=== PATIENT | male | born 1960 | race Caucasian/White ===

== ENCOUNTER 2016-06-28 10:55 | Inpatient (IN) ==
[2016-06-28] MEDS ORDERED: Piperacillin/Tazobactam 3.375 GM in D5% in Water (Mini-Bag+) 100 ML IVPB ONE (11:31)
[2016-06-28] MEDS ORDERED: Vancomycin 2,000 MG in D5% in Water 250 ML IVPB ONE (11:31)
[2016-06-28] MEDS ORDERED: 0.9 % Sodium Chloride 1,000 ML IVC ONE ×2 (11:31→15:10)
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
[2016-06-28] MEDS ORDERED: Vancomycin 2,000 MG in D5% in Water 500 ML IVPB ONE (11:44)
[2016-06-28 12:17] LABS: Hematocrit 28.6 % (37.5-50.1); Red Blood Count 3.01 M/mcL (4.19-5.50)
[2016-06-28 12:18] LABS: Hemoglobin 9.5 g/dL (12.9-16.9); Mean Corpuscular HGB Conc 33.2 g/dL (31.6-35.5); Mean Corpuscular Hemoglobin 31.6 pg (28.0-33.3); Mean Platelet Volume 9.2 fL (9.4-12.4); Platelet Count 356 K/mcL (140-400); Red Cell Distribution Width 13.2 % (11.5-14.5)
[2016-06-28 12:32] LABS: INR 1.4; Prothrombin Time 15.5 Seconds (9.4-12.1)
[2016-06-28 12:34] LABS: Activated Partial Thrombo Time 31.3 Seconds (26.0-36.0)
[2016-06-28 12:39] LABS: Albumin/Globulin Ratio 0.3 (1.1-2.2); Bilirubin,Direct 0.2 mg/dL (0.0-0.5); Bilirubin,Indirect 0.2 mg/dL (0.0-1.2); Bilirubin,Total 0.4 mg/dL (0.2-1.2); Calcium 9.3 mg/dL (8.6-10.8); Magnesium 1.1 mg/dL (1.6-2.6); Potassium 3.1 mEq/L (3.5-4.5); Total Protein 7.9 g/dL (6.0-8.3)
[2016-06-28 12:41] LABS: Lymphocytes # 2.1 K/mcL (0.6-4.6); Monocytes # 0.5 K/mcL (0.0-1.3); Neutrophils # 23.4 K/mcL (1.6-8.9); Platelet Estimate Normal (Normal)
[2016-06-28 12:43] LABS: Albumin 1.9 g/dL (3.5-5.0); Phosphorous 0.9 mg/dL (2.3-4.7)
[2016-06-28] MEDS ORDERED: 0.9 % Sodium Chloride 2,000 ML IVC ONE (12:51)
[2016-06-28] MEDS ORDERED: *HR* HYDROmorphone (PF) 1 MG/ML SYRINGE IV ONE ×2 (13:19→15:49)
[2016-06-28] MEDS ORDERED: Ondansetron 4 MG/2 ML VIAL IV ONE (13:19)
[2016-06-28] MEDS ORDERED: Potassium Phosphate 44 MEQ in 0.9 % Sodium Chloride 250 ML IVPB ONE (16:00)
[2016-06-28] MEDS ORDERED: Ondansetron 4 MG/2 ML VIAL IVP ONE (16:25)
[2016-06-28] MEDS ORDERED: Naloxone 0.4 MG/ML INJ IVP PRN (16:55)
[2016-06-28] MEDS ORDERED: *HR* HYDROmorphone (PF) 1 MG/ML SYRINGE IVP PRN (16:55)
[2016-06-28] MEDS ORDERED: Ondansetron 4 MG/2 ML VIAL IVP PRN (16:55)
[2016-06-28] MEDS ORDERED: *HR* HYDROcodone/Acet 5/325 mg TABLET PO PRN (16:55)
[2016-06-28] MEDS ORDERED: 0.9 % Sodium Chloride 1,000 ML IVC SCH (17:00)
[2016-06-28] MEDS ORDERED: D5% in Water 1,000 ML IV PRN (17:07)
[2016-06-28] MEDS ORDERED: Dextrose Gel 15 GM PO PRN ×2 (17:07)
--- NOTE | 2016-06-28 17:32 | Internal Med History&Physical ---
<Stella Paez M - Last Filed: 06/28/16 18:28> Date of Encounter: 06/28/16 Time of Encounter: 17:27 Assessment and Plan (1) Sepsis Current visit: Yes Status: Acute Patient presented with new left foot ulcer, surrounding erythema and tenderness , fever, chills, nausea and vomiting. Tachycardic with HR 120s, WBC elevated to 26.0, low-grade fever of 100.9 WBC 26.0, lactate 3.6. Blood cultures drawn 4L 0.9NS Fluid bolus given (30mL x 136kg= 4080) Repeat lactate = 1.5 Broad spectrum antibiotics initiated with Vanc and Zosyn IVPB Will continue IV fluids with 0.9NS at 100mL/hr Will continue Vanc and zosyn as we await cultures. Qualifiers: Sepsis type: sepsis due to unspecified organism Qualified Code(s): A41.9 - Sepsis, unspecified organism (2) Foot ulcer due to secondary DM Current visit: No Status: Acute Patient with new foot ulcer of left foot, surrounding erythema and tenderness spreading up to mid calf. Patient with fevers, chills, nausea and vomiting as well. Blood cultures drawn 4L fluid bolus Broad spectrum antibiotics initiated with Vanc and Zosyn. Will continue Vanc and zosyn as we await culture results Xray of left foot showed lateral soft tissue ulcer, but no osseous involvement MRI of left foot ordered to further assess for osteomyelitis ESR ordered Podiatry consulted. NPO after midnight for possible debridement or bone biopsy. (3) Cellulitis of leg, left Current visit: Yes Status: Acute Patient with new foot ulcer of left foot, surrounding erythema and tenderness spreading up to mid calf. Patient with fevers, chills, nausea and vomiting as well. Blood cultures drawn 4L fluid bolus Broad spectrum antibiotics initiated with Vanc and Zosyn. Will continue Vanc and zosyn as we await culture results Xray of left foot showed lateral soft tissue ulcer, but no osseous involvement MRI of left foot ordered to further assess for osteomyelitis ESR ordered Podiatry consulted. (4) Type 2 diabetes mellitus Current visit: Yes Status: Acute Diabetic diet. check blood glucose ACHS Basal insulin dose of 65u detemir BID Will give half dose tonight as he will be NPO after midnight for potential procedure. 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 Baseline appears to be 0.8-1.5, though he has been as high as 2.78 in the last 3 months, and had a previous episode of JOCELINE in 2014 with Cr as high as 6.0. 4L fluid bolus given for sepsis protocol. Continuous IV fluids of 0.9NS at 100mL/hr recheck Chemistry at midnight and in morning. (6) Hypokalemia Current visit: Yes Status: Acute Patient with potassium of 3.1. 44mEq of KPhos ordered recheck chemistry at midnight. (7) Hypomagnesemia Current visit: Yes Status: Acute Magnesium of 1.1 2g of magnesium sulfate IVPB given recheck Magnesium at midnight. (8) Hypophosphatemia Current visit: Yes Status: Acute Phosphorus of 0.9. 44mEq of Kphos IVPB ordered recheck phos at midnight (9) DVT prophylaxis Current visit: No Status: Acute Up to chair BID Calf compressors 5,000u heparin SQ BID Internal Medicine - H&P: HPI Chief complaint: foot ulcer Admitted From: Emergency Dept Plans for Post Hospital Care: Home History of present illness: Mr. Santacruz is a 55 year old male with history of type 2 diabetes, hypertension, hyperlipidemia, congestive heart failure, and chronic kidney disease as well as chronic foot ulcers presented to the emergency department today after discovering a new foot ulcer developed in the last couple of days with increasing pain to his left foot and increasing redness. He reports the ulcer on his left foot opened up within the last 2 days. He noted purulent drainage, as well as increased pain and redness. He also had fever to 102 degrees yesterday, chills, nausea, vomiting he denies any chest pain, palpitations denies any abdominal pain or diarrhea. Evaluation in the emergency department was significant for elevated white count of 26.0, lactate of 3.6, electrolyte imbalances with potassium 3.1, magnesium of 1.1 and phosphorus of 0.9. He was tachycardic to 120s, had low-grade fever of 100.1, and blood pressure of 150/ 84. Podiatry was consulted, blood cultures were taken, he was given 4 L of fluid bolus, and initiated on broad-spectrum antibiotics. He was given 2g of magnesium sulfate and 44 mEq of potassium phosphorus was ordered as well. X- ray of the foot showed lateral soft tissue ulcer with no evidence of osseous involvement. On exam patient had an ulcer on his lateral left foot that was approximately 4 cm in diameter and 3 cm deep with a large amount of purulent drainage surrounding erythema erythema spreading up the leg to mid calf. Patient's left foot and lower leg were tender to palpation. His left lower extremity was edematous, and he reports this is more than usual. He is tachycardic with HR 120s, lungs are clear to auscultation. Past Med Surg Social Fam HX - Past Medical History Medical history: CHF, diabetes, hyperlipidemia, hypertension, renal disease Psychiatric history: depression - Past Surgical History Surgical History: orthopedic, other (bilateral big toe amputations), other ( multiple wound debridements on bilateral feet) - Social History Smoking Status: Never smoker Smokeless Tobacco Status: No Alcohol use: none Drug use: marijuana (occasional) - Family History Father Family Member Ethnicity: Non- Living Status: Still Living Hx Family Cardiac Disorders: Yes Hx Family Endocrine Disorder: Yes (diabetis) Internal Medicine - H&P: Meds Gabapentin [Neurontin] 800 mg PO TID 12/20/15 [History] Insulin ASPART [Novolog] 2 - 12 unit SQ QID 12/20/15 [History] Insulin DETEMIR [Levemir] 65 unit SQ BID 12/20/15 [History] Metoprolol [Lopressor] 100 mg PO BID 12/20/15 [History] Magnesium Oxide [Mag-Ox] 400 mg PO BID 30 Days 12/23/15 [Rx] Aspirin Enteric Coated [Aspirin EC] 81 mg PO DAILY 01/21/16 [History] Atorvastatin Calcium [Lipitor] 20 mg PO DAILY 01/21/16 [History] Clopidogrel [Plavix] 75 mg PO DAILY 30 Days 01/30/16 [Rx] Ferrous Sulfate 325 mg PO BIDWM 30 Days 01/30/16 [Rx] Folic Acid 1 mg PO DAILY 30 Days 01/30/16 [Rx] CloNIDine HCl 0.1 mg PO TID 04/12/16 [History] Omeprazole [PriLOSEC] 40 mg PO DAILY 04/12/16 [History] Citalopram Hydrobromide [Citalopram HBr] 40 mg PO DAILY 30 Days 04/20/16 [Rx] Amino Acids/Protein Hydrolys [Pro-Stat Awc Liquid] 30 ml PO BID 05/07/16 [ History] Cyclobenzaprine [Flexeril] 10 mg PO TID PRN 05/07/16 [History] Multivitamin [Multi-Day Vitamins] 1 each PO DAILY 05/07/16 [History] Oxycodone HCl/Acetaminophen [Percocet 10-325 mg Tablet] 1 each PO Q6H PRN #20 tablet 05/10/16 [Rx] Furosemide [Lasix] 40 mg PO DAILY 06/28/16 [History] Morphine Sulfate 15 mg PO QID PRN 06/28/16 [History] Allergies No Known Allergies Allergy (Verified 06/28/16 14:37) All Systems PM: A 10-system review of systems was performed and is negative for pertinent findings except as documented above in the HPI. - Constitutional Constitutional: chills, fever(s), malaise, no night sweats - Cardiovascular Cardiovascular ROS IM: no chest pain, no diaphoresis, no dyspnea, no lightheadedness, no palpitations, no syncope - Respiratory Respiratory: no cough, no dyspnea, no wheezing, no excessive phlegm production - Gastrointestinal Gastrointestinal: nausea, vomiting, no abdominal pain, no diarrhea, no hematemesis, no hematochezia, no melena - Genitourinary Genitourinary ROS male: no dysuria, no hematuria - Musculoskeletal Additional comments: chronic numbness and tingling in bilateral feet. Patient reports no more than usual. - Integumentary Integumentary IM: new lesions, non-healing lesions Additional comments: Healing ulcer on plantar aspect of left foot. New lateral dorsal ulcer on left foot - Neurological Neurological ROS: no confusion, no convulsions, no focal weakness, no tremor(s) - Hematologic/Lymphatic Hematologic/Lymphatic: no easy bruising - Constitutional Vitals: Temp Pulse Resp BP Pulse Ox 100.1 F H 107 17 142/91 97 06/28/16 11:05 06/28/16 15:30 06/28/16 15:30 06/28/16 15:30 06/28/16 15:30 General appearance: Present: A&O X 3, no acute distress - Head Head exam: Present: atraumatic, normocephalic - Eye Eye exam: Present: PERRL, conjuntiva pink, sclera anicteric Pupils: Present: PERRL - Neck Neck exam general surgery: Present: supple, trachea midline. Absent: lymphadenopathy - Respiratory Respiratory exam: Present: CTAB. Absent: accessory muscle use, rales, rhonchi, wheezes - Cardiovascular Cardiovascular exam: Present: +S1, +S2, tachycardia. Absent: diastolic murmur, gallop, rubs, systolic murmur - GI/Abdominal GI/Abdominal exam: Present: normal bowel sounds, soft, no peritoneal signs. Absent: distended, tenderness - Extremities Exam Extremities exam: Present: pedal edema, tenderness, warm, radial pulses palpable and symetrical. Absent: calf tenderness, cyanotic - Expanded Lower Extremities Exam Lower Leg exam: Present: erythema (left), swelling (left), tenderness (left) Foot/Toe exam: Present: amputation (bilateral big toes), erythema, swelling, tenderness - Neurological Exam Neurological exam: Present: CN II-XII intact, oriented X3, no focal deficits. Absent: pronater drift, facial droop, speech deficit - Skin Skin exam: Present: dry. Absent: rash Additional comments: Lateral dorsal left foot ulcer measuring approximately 4cm in diameter and 3 cm deep with moderate amount of purulent drainage surrounded by erythema. Healing ulcer on plantar aspect of left foot, closed and intact. Internal Med - H&P Results - Labs CBC & Chem 7: 06/28/16 12:08 06/28/16 12:08 Labs: All Lab Results (24 Hours) 06/28/16 06/28/16 06/28/16 Range/Units 12:08 12:08 12:08 WBC 26.0 H (4.3-11.1) K/mcL RBC 3.01 L (4.19-5.50) M/mcL Hgb 9.5 L (12.9-16.9) g/dL Hct 28.6 L (37.5-50.1) % MCV 95.0 (83.0-100.0) fL MCH 31.6 (28.0-33.3) pg MCHC 33.2 (31.6-35.5) g/dL RDW 13.2 (11.5-14.5) % Plt Count 356 (140-400) K/mcL MPV 9.2 L (9.4-12.4) fL Seg Neutrophils % 86.0 % Band Neutrophils % 4.0 (0-4) % Lymphocytes % 8.0 % Monocytes % 2.0 % Neutrophils # 23.4 H (1.6-8.9) K/mcL Lymphocytes # 2.1 (0.6-4.6) K/mcL Monocytes # 0.5 (0.0-1.3) K/mcL Platelet Estimate Normal (Normal) PT 15.5 H (9.4-12.1) Seconds INR 1.4 APTT 31.3 (26.0-36.0) Seconds Sodium 133 L (136-145) mEq/L Potassium 3.1 L (3.5-4.5) mEq/L Chloride 95 L (98-109) mEq/L Carbon Dioxide 26 (19-29) mEq/L BUN 29 H (8-26) mg/dL Creatinine 1.82 H (0.72-1.25) mg/dL Est GFR ( Amer) 47 L (> 60) Est GFR (Non-Af Amer) 39 L (> 60) BUN/Creatinine Ratio 16 (6-26) Glucose 140 H (70-99) mg/dL Calculated Osmolality 284 (280-300) Lactic Acid (0.5-2.2) mmol/L Calcium 9.3 (8.6-10.8) mg/dL Phosphorus 0.9 L* (2.3-4.7) mg/dL Magnesium 1.1 L (1.6-2.6) mg/dL Total Bilirubin 0.4 (0.2-1.2) mg/dL Direct Bilirubin 0.2 (0.0-0.5) mg/dL Indirect Bilirubin 0.2 (0.0-1.2) mg/dL AST 15 (5-34) Units/L ALT 10 (0-55) Units/L Alkaline Phosphatase 122 (38-126) Units/L Troponin I (0-0.03) ng/mL Serum Total Protein 7.9 (6.0-8.3) g/dL Albumin 1.9 L (3.5-5.0) g/dL Globulin 6.0 H (2.4-3.5) g/dL Albumin/Globulin Ratio 0.3 L (1.1-2.2) Specimen Rejected 06/28/16 06/28/16 06/28/16 Range/Units 12:08 12:08 14:05 WBC (4.3-11.1) K/mcL RBC (4.19-5.50) M/mcL Hgb (12.9-16.9) g/dL Hct (37.5-50.1) % MCV (83.0-100.0) fL MCH (28.0-33.3) pg MCHC (31.6-35.5) g/dL RDW (11.5-14.5) % Plt Count (140-400) K/mcL MPV (9.4-12.4) fL Seg Neutrophils % % Band Neutrophils % (0-4) % Lymphocytes % % Monocytes % % Neutrophils # (1.6-8.9) K/mcL Lymphocytes # (0.6-4.6) K/mcL Monocytes # (0.0-1.3) K/mcL Platelet Estimate (Normal) PT (9.4-12.1) Seconds INR APTT (26.0-36.0) Seconds Sodium (136-145) mEq/L Potassium (3.5-4.5) mEq/L Chloride (98-109) mEq/L Carbon Dioxide (19-29) mEq/L BUN (8-26) mg/dL Creatinine (0.72-1.25) mg/dL Est GFR ( Amer) (> 60) Est GFR (Non-Af Amer) (> 60) BUN/Creatinine Ratio (6-26) Glucose (70-99) mg/dL Calculated Osmolality (280-300) Lactic Acid 3.6 H (0.5-2.2) mmol/L Calcium (8.6-10.8) mg/dL Phosphorus (2.3-4.7) mg/dL Magnesium (1.6-2.6) mg/dL Total Bilirubin (0.2-1.2) mg/dL Direct Bilirubin (0.0-0.5) mg/dL Indirect Bilirubin (0.0-1.2) mg/dL AST (5-34) Units/L ALT (0-55) Units/L Alkaline Phosphatase (38-126) Units/L Troponin I 0.00 (0-0.03) ng/mL Serum Total Protein (6.0-8.3) g/dL Albumin (3.5-5.0) g/dL Globulin (2.4-3.5) g/dL Albumin/Globulin Ratio (1.1-2.2) Specimen Rejected Hemolyzed 06/28/16 Range/Units 15:56 WBC (4.3-11.1) K/mcL RBC (4.19-5.50) M/mcL Hgb (12.9-16.9) g/dL Hct (37.5-50.1) % MCV (83.0-100.0) fL MCH (28.0-33.3) pg MCHC (31.6-35.5) g/dL RDW (11.5-14.5) % Plt Count (140-400) K/mcL MPV (9.4-12.4) fL Seg Neutrophils % % Band Neutrophils % (0-4) % Lymphocytes % % Monocytes % % Neutrophils # (1.6-8.9) K/mcL Lymphocytes # (0.6-4.6) K/mcL Monocytes # (0.0-1.3) K/mcL Platelet Estimate (Normal) PT (9.4-12.1) Seconds INR APTT (26.0-36.0) Seconds Sodium (136-145) mEq/L Potassium (3.5-4.5) mEq/L Chloride (98-109) mEq/L Carbon Dioxide (19-29) mEq/L BUN (8-26) mg/dL Creatinine (0.72-1.25) mg/dL Est GFR ( Amer) (> 60) Est GFR (Non-Af Amer) (> 60) BUN/Creatinine Ratio (6-26) Glucose (70-99) mg/dL Calculated Osmolality (280-300) Lactic Acid 1.5 (0.5-2.2) mmol/L Calcium (8.6-10.8) mg/dL Phosphorus (2.3-4.7) mg/dL Magnesium (1.6-2.6) mg/dL Total Bilirubin (0.2-1.2) mg/dL Direct Bilirubin (0.0-0.5) mg/dL Indirect Bilirubin (0.0-1.2) mg/dL AST (5-34) Units/L ALT (0-55) Units/L Alkaline Phosphatase (38-126) Units/L Troponin I (0-0.03) ng/mL Serum Total Protein (6.0-8.3) g/dL Albumin (3.5-5.0) g/dL Globulin (2.4-3.5) g/dL Albumin/Globulin Ratio (1.1-2.2) Specimen Rejected <Conor De León T - Last Filed: 06/28/16 18:59> Date of Encounter: 06/28/16 Internal Medicine - H&P: HPI History of present illness: Mr. Santacruz is a 55 year old male All Systems PM: A 10-system review of systems was performed and is negative for pertinent findings except as documented above in the HPI. - Constitutional Vitals: Temp Pulse Resp BP Pulse Ox 100.1 F H 116 15 150/85 98 06/28/16 11:05 06/28/16 17:07 06/28/16 18:27 06/28/16 18:27 06/28/16 17:07 Internal Med - H&P Results - Labs CBC & Chem 7: 06/28/16 12:08 06/28/16 12:08 - Attending Attestation Seen and examined, EMR reviewed, plan of care discussed with patient and CORONER TRANSPORT TECHNICIAN, whose documentation below I agree with, with following addendum 55 Y/O M with DM, Uncontrolled with chronic foot ulcer, CKD, presents to ER stating his ulcer popped with copious purulent discharge, fever, and general malaise He is febrile, tachycardic, on admission. Other exam significant for ~4cm Left foot ulcer, deep, no visible bone, purulent discharge with surrounding cellulitis. Heart sounds S1, S2, no m/g/r. Chest is clear, abdomen is benign Labs and imaging reviewed: leukocytosis with left shift, lactic acidosis, hypomagnessemia, hypokalemia, hypophosphatemia, creatinine at baseline. Foot X- ray with cellulitis, no evidence of osteomyelitis. Patient will be admitted for severe sepsis with lactic acidosis secondary to left foot cellulitis with abscess r/o osteomyelitis, severe hypophosphatemia hypomagnessemia, hypokalemia. Aggressive IVF hydration, strict intake/output, broad coverage with Vanco and Zosyn, Rpt chem at [place] with lactate after electrolytes replacements, Check ESR and Obtain foot MRI to r/o osteomyelitis, podiatry consulted for evaluation. Insulin for glucose control. Plan of care discussed with patient, patient is high risk for septic shock, multi-organ failure and . He is full code Rest of details as documented below by CORONER TRANSPORT TECHNICIAN
[2016-06-28] MEDS ORDERED: Vancomycin 2,000 MG in D5% in Water 250 ML IVPB SCH (18:00)
[2016-06-28] MEDS: *HR* Dextrose 50 % in Water (Syg) 50 ML SYRINGE IVP PRN ×2 (19:31→19:32)
[2016-06-28] MEDS ORDERED: Insulin LISPRO 300 UNITS/3 ML VIAL SQ SCH (21:00)
[2016-06-28] MEDS ORDERED: Insulin DETEMIR 100 UNIT/ML X5UNITS SQ SCH (21:00)
[2016-06-28] MEDS: Magnesium Oxide 400 MG TABLET PO SCH (21:20)
[2016-06-28] MEDS: Gabapentin 400 MG CAPSULE PO SCH (21:20)
[2016-06-28] MEDS: *HR* Heparin 5,000 UNIT/ML VIAL SQ SCH (21:20)
[2016-06-28] MEDS: Metoprolol 100 MG TABLET PO SCH (21:20)
[2016-06-28] MEDS: cloNIDine HCl 0.1 MG TABLET PO SCH (21:23)
[2016-06-28] MEDS: Insulin DETEMIR 100 UNIT/ML X5UNITS SQ SCH (21:25)
[2016-06-28] MEDS: *HR* Morphine Immed Rel 30 MG TABLET PO PRN (23:17)
[2016-06-29] MEDS: Piperacillin/Tazobactam 3.375 GM in D5% in Water (Mini-Bag+) 100 ML IVPB SCH ×4 (00:32→23:57)
[2016-06-29] MEDS ORDERED: Vancomycin 2,000 MG in D5% in Water 500 ML IVPB ONE (04:00)
[2016-06-29 04:22] LABS: Basophils % 0.1 %; Eosinophils # 0.3 K/mcL (0.0-0.6); Eosinophils % 1.6 %; Hematocrit 23.3 % (37.5-50.1); Immature Granulocytes % 1.4 % (0-4); Lymphocytes # 1.3 K/mcL (0.6-4.6); Lymphocytes % 7.8 %; Mean Corpuscular HGB Conc 33.5 g/dL (31.6-35.5); Mean Corpuscular Hemoglobin 31.3 pg (28.0-33.3); Mean Corpuscular Volume 93.6 fL (83.0-100.0); Mean Platelet Volume 8.8 fL (9.4-12.4); Monocytes # 0.7 K/mcL (0.0-1.3); Monocytes % 4.2 %; Neutrophils # 14.7 K/mcL (1.6-8.9); Platelet Count 287 K/mcL (140-400); Red Blood Count 2.49 M/mcL (4.19-5.50); Red Cell Distribution Width 13.1 % (11.5-14.5); Segmented Neutrophils % 84.9 %
[2016-06-29 04:24] LABS: Hemoglobin 7.8 g/dL (12.9-16.9)
[2016-06-29 04:32] LABS: BUN/Creatinine Ratio 19 (6-26); Blood Urea Nitrogen 22 mg/dL (8-26); Calcium 8.1 mg/dL (8.6-10.8); Carbon Dioxide 29 mEq/L (19-29); Chloride 97 mEq/L (98-109); Glucose 115 mg/dL (70-99); Osmolality,Calculated 280 (280-300); Potassium 3.3 mEq/L (3.5-4.5); Sodium 133 mEq/L (136-145); eGFR For African Americans > 60 (> 60); eGFR For Non-African Americans > 60 (> 60)
[2016-06-29 04:37] LABS: BUN/Creatinine Ratio 18 (6-26); Blood Urea Nitrogen 23 mg/dL (8-26); Calcium 8.1 mg/dL (8.6-10.8); Carbon Dioxide 27 mEq/L (19-29); Chloride 96 mEq/L (98-109); Glucose 190 mg/dL (70-99); Magnesium 1.2 mg/dL (1.6-2.6); Osmolality,Calculated 283 (280-300); Phosphorous 2.7 mg/dL (2.3-4.7); Potassium 3.6 mEq/L (3.5-4.5); Sodium 132 mEq/L (136-145); eGFR For African Americans > 60 (> 60); eGFR For Non-African Americans > 60 (> 60)
[2016-06-29] MEDS: *HR* Morphine Immed Rel 30 MG TABLET PO PRN ×2 (06:19→19:01)
[2016-06-29] MEDS: *HR* Heparin 5,000 UNIT/ML VIAL SQ SCH ×2 (06:20→17:15)
[2016-06-29] MEDS ORDERED: Insulin LISPRO 300 UNITS/3 ML VIAL SQ SCH ×3 (07:30→21:00)
[2016-06-29] MEDS: *HR* Dextrose 50 % in Water (Syg) 50 ML SYRINGE IVP PRN ×4 (07:49→11:55)
[2016-06-29 08:43] LABS: Acinetobacter baumannii by PCR Not Detected (Not Detect); Candida albicans by PCR Not Detected (Not Detect); Candida glabrata by PCR Not Detected (Not Detect); Candida krusei by PCR Not Detected (Not Detect); Candida parapsilosis by PCR Not Detected (Not Detect); Candida tropicalis by PCR Not Detected (Not Detect); Enterococcus by PCR Not Detected (Not Detect); Escherichia coli by PCR Not Detected (Not Detect); Klebsiella oxytoca by PCR Not Detected (Not Detect); Klebsiella pneumoniae by PCR Not Detected (Not Detect); Pseudomonas aeruginosa by PCR Not Detected (Not Detect); Serratia marcescens by PCR Not Detected (Not Detect); Staphylococcus aureus by PCR Not Detected (Not Detect); Streptococcus agalactiae(B)PCR ***DETECTED*** (Not Detect); Streptococcus by PCR ***DETECTED*** (Not Detect); Streptococcus pneumoniae PCR Not Detected (Not Detect); Streptococcus pyogenes (A) PCR Not Detected (Not Detect)
[2016-06-29] MEDS ORDERED: D5% in 0.45% NACL 1,000 ML IVC SCH (10:15)
[2016-06-29] MEDS: Insulin DETEMIR 100 UNIT/ML X5UNITS SQ SCH (10:17)
[2016-06-29] MEDS ORDERED: *HR* HYDROmorphone (PF) 1 MG/ML SYRINGE IVP PRN (10:27)
--- NOTE | 2016-06-29 10:27 | Internal Med Progress Note ---
<Bandar Seo - Last Filed: 06/29/16 14:56> Date of Encounter: 06/29/16 Time of Encounter: 10:10 - Assessment and plan (1) Sepsis Current Visit: Yes Status: Acute Assessment and plan: Patient presented with elevated white blood cell count, elevated lactic acid elevated temperature, tachycardia, and MRI evidence of osteomyelitis. He received 4 L bolus fluid yesterday evening with resolution of elevated lactic acid improvement in white blood cell count. Patient has been afebrile since admission and there has also been resolution patient tachycardia. We will continue empiric antibiotics with Zosyn and vancomycin Assessment diabetic foot ulcer by podiatry Will hold additional fluids for now Will closely monitor Qualifiers: Sepsis type: sepsis due to unspecified organism Qualified Code(s): A41.9 - Sepsis, unspecified organism (2) Bacteremia due to group B Streptococcus Current Visit: Yes Status: Acute Assessment and plan: Blood cultures show Gram positive cocci in chains. PCR is positive for Group B strep. Will continue Zosyn and Levaquin Tylenol as needed for fever (3) Foot ulcer due to secondary DM Current Visit: No Status: Acute Assessment and plan: Stage IV ulcer that is ~4cm in diameter. MRI shows osteomyelitis. Foot MRI 06/28/16 18:10 IMPRESSION: Large dorsal and lateral soft tissue ulceration at the level of the lateral midfoot. There is a large (approximately 8.5 x 4.3 x 3.6 cm) fluid collection associated with the medial aspect of the midfoot communicating with the tarsometatarsal articulations and abutting the naviculocuneiform articulations. Marrow changes are also noted throughout the midfoot. Septic arthritis, osteomyelitis and abscess formation is favored over Charcot arthropathy changes. Podiatry consulted and appreciate recommendations for continued management/care Patient receiving Vancomycin and Zosyn Treatment as above Patient takes 30 mg PO morphine at home usually for pain...will start 10 mg ER oxycodone, and have prn dilaudid and morphine (4) Cellulitis of leg, left Current Visit: Yes Status: Acute Assessment and plan: Cellulitis related to current infected foot ulcer and osteomyelitis, on left. Tenderness and erythema spreads to the midcalf. Treatment as above (5) Elevated lactic acid level Current Visit: Yes Status: Resolved Assessment and plan: Lactic acid improved with additional fluids, down to 1.5 (6) Acute kidney injury superimposed on chronic kidney disease Current Visit: Yes Status: Acute Assessment and plan: Patient has baseline CKD due to his diabetes, but presents with an JOCELINE with SCr up to 1.82. With bolus of fluids for patient resolution of patient JOCELINE was seen. On repeat blood work his SCr came down to 1.17. Will encourage patient PO for right now Avoid potentially nephrotoxic agents, if possible Continue to monitor (7) Anemia Current Visit: No Status: Chronic Assessment and plan: Patient presents with hemoglobin of 9.5, after 4L additional fluid. His hemoglobin came down to 7.8. Patient has asymptomatic anemia, possibly related to his chronic kidney disease. 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 His blood sugar at that time was 67, he states he begins to feel hypoglycemic and confused neurologic blood sugar falls below 88. He was given D50 and this helped correct some of his confusion. He was still reporting significant pain in his left lower extremity and was very adamant that he needs greater amounts of opioid medications to help control his pain as he takes 30 mg oral morphine every 6 hours at home. After patient settled down a little bit and was reevaluated, he denies fever/ chills. Reports significant pain up to his mid calf in his left lower extremity. Denies nausea/vomiting, denies abdominal pain. He states the only reason he came to the hospital because his brother made him. Reports the ulcer on the dorsal aspect of left foot started 2 days ago when he prodded a scab on his left foot. - Constitutional Vitals: Temp Pulse Resp BP Pulse Ox 98.5 F 91 18 135/85 95 06/29/16 03:20 06/29/16 07:33 06/29/16 07:33 06/29/16 07:33 06/29/16 07:33 General appearance: Present: A&O X 3, no acute distress Exam: General: Cooperative, no acute distress, alert and oriented 3, answers questions appropriately, initially confused, improved Head: Normocephalic, atraumatic Eye: Conjunctiva pink, sclera anicteric, EOMI, PERRL Neck: Supple, trachea midline Respiratory: No accessory muscle usage, clear to auscultation bilaterally, no wheezes/rhonchi/rales appreciated Cardiovascular: Regular rate and rhythm, S1 and S2 present, no murmurs/rubs/ gallops/clicks appreciated GI/abdominal: Nondistended, nontender, soft, normal bowel sounds, no peritoneal signs Extremities: No calf tenderness, noncyanotic, 2+ pedal edema appreciated, warm, stage IV ulcer on dorsal aspect of left foot, approximately 4 cm in diameter, evidence of sloughed skin and blood around the ulcer, previous amputation of digits of lower extremity Neurological: Alert and oriented 3, no facial droop, no focal deficits Skin: Dry, intact, normal color Internal Medicine: Result - Labs CBC & Chem 7: 06/29/16 04:02 06/29/16 04:02 Labs: Short CBC 06/29/16 Range/Units 04:02 WBC 17.3 H (4.3-11.1) K/mcL Hgb 7.8 L D (12.9-16.9) g/dL Hct 23.3 L (37.5-50.1) % Plt Count 287 (140-400) K/mcL Neutrophils # 14.7 H (1.6-8.9) K/mcL BMP 06/29/16 06/29/16 02:00 04:02 Sodium 132 L 133 L Potassium 3.6 3.3 L Chloride 96 L 97 L Carbon Dioxide 27 29 BUN 23 22 Creatinine 1.25 1.17 Glucose 190 H 115 H Calcium 8.1 L 8.1 L - ABG Interpretation ABG results: PT/INR, D-dimer PT 15.5 Seconds (9.4-12.1) H 06/28/16 12:08 - Impressions Impressions Foot MRI 06/28/16 18:10 IMPRESSION: Large dorsal and lateral soft tissue ulceration at the level of the lateral midfoot. There is a large (approximately 8.5 x 4.3 x 3.6 cm) fluid collection associated with the medial aspect of the midfoot communicating with the tarsometatarsal articulations and abutting the naviculocuneiform articulations. Marrow changes are also noted throughout the midfoot. Septic arthritis, osteomyelitis and abscess formation is favored over Charcot arthropathy changes. Osteomyelitis is suspected involving the 2nd through 5th metatarsal bases, cuneiforms and cuboid. Aspiration of the fluid collection could be performed. D/ / 06/29/2016 08:12:04 Lenny Arthur MD / aura Interpreting Provider: Lenny Arthur MD Consult Discharge Plan - Plan Referrals: Sukumar Garrett MD [Primary Care Provider] - <Alvin Lau P - Last Filed: 06/29/16 18:30> Date of Encounter: 06/29/16 - Constitutional Vitals: Temp Pulse Resp BP Pulse Ox 98.2 F 78 18 125/89 95 06/29/16 15:00 06/29/16 15:00 06/29/16 15:00 06/29/16 15:00 06/29/16 15:00 Internal Medicine: Result - Labs CBC & Chem 7: 06/29/16 04:02 06/29/16 04:02 Labs: Short CBC 06/29/16 Range/Units 04:02 WBC 17.3 H (4.3-11.1) K/mcL Hgb 7.8 L D (12.9-16.9) g/dL Hct 23.3 L (37.5-50.1) % Plt Count 287 (140-400) K/mcL Neutrophils # 14.7 H (1.6-8.9) K/mcL BMP 06/29/16 06/29/16 02:00 04:02 Sodium 132 L 133 L Potassium 3.6 3.3 L Chloride 96 L 97 L Carbon Dioxide 27 29 BUN 23 22 Creatinine 1.25 1.17 Glucose 190 H 115 H Calcium 8.1 L 8.1 L - ABG Interpretation ABG results: PT/INR, D-dimer PT 15.5 Seconds (9.4-12.1) H 06/28/16 12:08 - Impressions Impressions Foot MRI 06/28/16 18:10 IMPRESSION: Large dorsal and lateral soft tissue ulceration at the level of the lateral midfoot. There is a large (approximately 8.5 x 4.3 x 3.6 cm) fluid collection associated with the medial aspect of the midfoot communicating with the tarsometatarsal articulations and abutting the naviculocuneiform articulations. Marrow changes are also noted throughout the midfoot. Septic arthritis, osteomyelitis and abscess formation is favored over Charcot arthropathy changes. Osteomyelitis is suspected involving the 2nd through 5th metatarsal bases, cuneiforms and cuboid. Aspiration of the fluid collection could be performed. D/ / 06/29/2016 08:12:04 Lenny Arthur MD / aura Interpreting Provider: Lenny Arthur MD - Attending Attestation I examined this patient and my medical decision-making was reviewed with the LIBRARY CONSULTANT/PA/Advanced Practice Nurse/Resident Physician. I agree with the documented findings, disposition and treatment plan as described except to the extent set forth below.
[2016-06-29] MEDS ORDERED: *HR* HYDROmorphone (PF) 1 MG/ML SYRINGE IVP ONE (12:16)
[2016-06-29] MEDS: cloNIDine HCl 0.1 MG TABLET PO SCH ×3 (12:48→19:55)
[2016-06-29] MEDS: Folic Acid 1 MG TABLET PO SCH (12:48)
[2016-06-29] MEDS: Aspirin Enteric Coated 81 MG Tablet PO SCH (12:48)
[2016-06-29] MEDS: Gabapentin 400 MG CAPSULE PO SCH ×3 (12:50→19:55)
[2016-06-29] MEDS: Metoprolol 100 MG TABLET PO SCH ×2 (12:50→19:55)
[2016-06-29] MEDS: Magnesium Oxide 400 MG TABLET PO SCH ×2 (12:50→19:55)
[2016-06-29] MEDS: Furosemide 40 MG TABLET PO SCH (14:46)
[2016-06-29] MEDS: Vancomycin 1,250 MG in D5% in Water 250 ML IVPB SCH (15:35)
[2016-06-29] MEDS: *HR* HYDROmorphone (PF) 1 MG/ML SYRINGE IVP PRN ×3 (15:44→23:56)
--- NOTE | 2016-06-29 15:58 | Podiatry Consult Note ---
Date of Encounter: 06/29/16 Time of Encounter: 10:30 Assessment and Plan (1) Osteomyelitis of foot, left, acute Current visit: Yes Status: Acute Area examined at bedside After review of imaging and inspection of ulceration, will plan to take patient to OR in AM () for incision and drainage and debridement of all necrotic tissue of left foot and probable wound vac placement Explained plan to patient Will allow patient to eat today, NPO after midnight Hold plavix today Please cleanse skin to foot in [facility] to manage pain Continue to monitor for sepsis, call with worsening or concerns Please place wet to dry dressing to foot at this time. Change TID or as needed. Continue current antibiotic therapy (2) Foot ulcer Current visit: No Status: Acute Qualifiers: Laterality: right Non-pressure ulcer stage: with fat layer exposed Qualified Code(s): L97.512 - Non-pressure chronic ulcer of other part of right foot with fat layer exposed History of Present Illness HPI: Mr. Santacruz is a 55 year old male with history of type 2 diabetes, hypertension, hyperlipidemia, congestive heart failure, and chronic kidney disease as well as chronic foot ulcers and wound vac therapy (recent). Patient presented to the emergency department for new foot ulcer to left foot which developed in the last couple of days. Patient states it started as a blister which he ruptured himself and he presented to ED with increasing pain to his left foot and increasing redness. He noted purulent drainage, as well as increased pain and redness. Reports Tmax 102, chills, nausea, vomiting he denies any chest pain, palpitations denies any abdominal pain or diarrhea. Current labs WBC 17.3 ESR 99 and has MRI showing osteomyelitis of left foot. Cultures of wound have already been obtained. Upon arrival to bedside, patient is anxious and agitated. Demanding more pain medication. Refusing treatment until more pain medication is administered. Medical at bedside at this time. Nurse states patient was given 1mg dilaudid 15 min ago. Medical ordered 1 additional mg to be administered. Patient demanding 4mg. Explained that was not an acceptable increase in amount of medication at this time and we would continue to monitor his pain control. Past Med Surg Social Fam HX - Past Medical History Medical history: CHF, diabetes, hyperlipidemia, hypertension, renal disease Psychiatric history: depression - Past Surgical History Surgical History: orthopedic, other, other - Social History Smoking Status: Never smoker Smokeless Tobacco Status: No Alcohol use: none Drug use: marijuana - Family History Father Family Member Ethnicity: Non- Living Status: Still Living Hx Family Cardiac Disorders: Yes Hx Family Endocrine Disorder: Yes (diabetis) Medications and Allergies Gabapentin [Neurontin] 800 mg PO TID 12/20/15 [History] Insulin ASPART [Novolog] 2 - 12 unit SQ QID 12/20/15 [History] Insulin DETEMIR [Levemir] 65 unit SQ BID 12/20/15 [History] Metoprolol [Lopressor] 100 mg PO BID 12/20/15 [History] Magnesium Oxide [Mag-Ox] 400 mg PO BID 30 Days 12/23/15 [Rx] Aspirin Enteric Coated [Aspirin EC] 81 mg PO DAILY 01/21/16 [History] Atorvastatin Calcium [Lipitor] 20 mg PO DAILY 01/21/16 [History] Clopidogrel [Plavix] 75 mg PO DAILY 30 Days 01/30/16 [Rx] Ferrous Sulfate 325 mg PO BIDWM 30 Days 01/30/16 [Rx] Folic Acid 1 mg PO DAILY 30 Days 01/30/16 [Rx] CloNIDine HCl 0.1 mg PO TID 04/12/16 [History] Omeprazole [PriLOSEC] 40 mg PO DAILY 04/12/16 [History] Citalopram Hydrobromide [Citalopram HBr] 40 mg PO DAILY 30 Days 04/20/16 [Rx] Amino Acids/Protein Hydrolys [Pro-Stat Awc Liquid] 30 ml PO BID 05/07/16 [ History] Cyclobenzaprine [Flexeril] 10 mg PO TID PRN 05/07/16 [History] Multivitamin [Multi-Day Vitamins] 1 each PO DAILY 05/07/16 [History] Oxycodone HCl/Acetaminophen [Percocet 10-325 mg Tablet] 1 each PO Q6H PRN #20 tablet 05/10/16 [Rx] Furosemide [Lasix] 40 mg PO DAILY 06/28/16 [History] Morphine Sulfate 15 mg PO QID PRN 06/28/16 [History] Allergies No Known Allergies Allergy (Verified 06/28/16 14:37) All Systems Reviewed: A 10-system review of systems was performed and is negative for pertinent findings except as documented above in the HPI. Physical Exam - Constitutional Vitals: Temp Pulse Resp BP Pulse Ox 98.5 F 96 18 139/94 95 06/29/16 03:20 06/29/16 11:04 06/29/16 11:00 06/29/16 11:04 06/29/16 11:00 Exam: General Examination: CONSTITUTIONAL: Alert, oriented, agitated EXTREMITIES: CFT 3 seconds all toes. Edema +2 and pedal pulses faintly palpable. SKIN: Skin with decreased turgor, decreased subcutaneous tissue, skin thin and shiny with trophic changes associated with comorbidities as described in history.. NEUROLOGIC: Intact sensation to moderate touch. Patient complains of paresthesias and dysesthesias. There is no clinical evidence of loss of protective sensation. Ulcer- Patient noted to have large open diabetic ulcer to lateral border of left foot measuring [id number] with 4cm tunneling towards calcaneus. Yellow slough noted throughout wound. Minimal healthy skin noted. 5th metatarsal exposed within ulcer upon inspection. No odor. Drainage is yellow/blood tinged and moderate in amount. Area surrounding ulceration irritated. Erythema, edema and warmth noted. Patient also noted to have healing ulceration to plantar aspect of foot sub metatarsal head #2. This ulcer is closed but fluctuance is noted. cannot rule out tunneling from this wound to newly opened ulceration to lateral foot. Cellulitis noted, does not extend past ankle joint at this time. Pain with any manipulation of ulcer. Results - Labs Result Diagrams: 06/29/16 04:02 06/29/16 04:02 Labs: Abnormal lab results WBC 17.3 K/mcL (4.3-11.1) H 06/29/16 04:02 RBC 2.49 M/mcL (4.19-5.50) L 06/29/16 04:02 Hgb 7.8 g/dL (12.9-16.9) L D 06/29/16 04:02 Hct 23.3 % (37.5-50.1) L 06/29/16 04:02 MPV 8.8 fL (9.4-12.4) L 06/29/16 04:02 Neutrophils # 14.7 K/mcL (1.6-8.9) H 06/29/16 04:02 ESR 99 mm/hr (0-10) H 06/28/16 12:03 PT 15.5 Seconds (9.4-12.1) H 06/28/16 12:08 Sodium 133 mEq/L (136-145) L 06/29/16 04:02 Potassium 3.3 mEq/L (3.5-4.5) L 06/29/16 04:02 Chloride 97 mEq/L (98-109) L 06/29/16 04:02 Glucose 115 mg/dL (70-99) H 06/29/16 04:02 POC Glucose 141 (58-89) H 06/28/16 21:11 Calcium 8.1 mg/dL (8.6-10.8) L 06/29/16 04:02 Magnesium 1.2 mg/dL (1.6-2.6) L 06/29/16 02:00 Albumin 1.9 g/dL (3.5-5.0) L 06/28/16 12:08 Globulin 6.0 g/dL (2.4-3.5) H 06/28/16 12:08 Albumin/Globulin Ratio 0.3 (1.1-2.2) L 06/28/16 12:08 H & H 06/29/16 Range/Units 04:02 Hgb 7.8 L D (12.9-16.9) g/dL Hct 23.3 L (37.5-50.1) % All other labs normal. Consult Discharge Plan - Plan Referrals: Sukumar Garrett MD [Primary Care Provider] -
[2016-06-29] MEDS: Insulin LISPRO 300 UNITS/3 ML VIAL SQ SCH (17:19)
[2016-06-29] MEDS ORDERED: *HR* OxyCODONE ER (12 HR) 10 MG TABLET PO SCH (18:00)
--- NOTE | 2016-06-29 18:22 | Venous Imaging Report ---
LE Venous Duplex Patient Name:Jeanmarie Santacruz Order Number:[id number] Procedure Date:06/28/2016 Date:1960Age:55 yrs Gender:Male Location:[facility] ED Room #: Referring MD:Oh Garcias MD mri ct tech:None Reading MD:Alan Dumas MD Primary Indications:LLE pain Secondary Indications: Impressions: Normal left lower extremity deep and superficial venous exam. Normal contralateral common femoral vein. Recommendations: After imaging the patient was admitted to the emergency room. Test completed on 06/28/2016 at 1:05:00 pm. Findings Venous Duplex Results: Right: Venous imaging of the lower extremity reveals full patency and normal vessel compressibility of the right common femoral. Doppler signals in the evaluated veins were normal. Left: Venous imaging of the lower extremity reveals full patency and normal vessel compressibility of the left distal iliac, left common femoral, left superficial femoral, left popliteal, left posterior tibial, left great saphenous and left lesser saphenous. Doppler signals in the evaluated veins were normal. Prior Study: No significant change compared to prior study dated: 01/21/2016. Results to Dr Oh Garcias 06/28/16 @ 1305. Lower Extremity Venous Duplex Side Vein Compress Spontaneous Flow Augment Diameter (cm) Depth (cm) Left Distal Iliac Normal Yes Phasic Yes Left Common Femoral Normal Yes Phasic Yes Left Superficial Femoral Normal Yes Phasic Yes Left Popliteal Normal Yes Phasic Yes Left Posterior Tibial Normal Yes Phasic Yes Left Great Saphenous Normal Yes Phasic Yes Left Lesser Saphenous Normal Yes Phasic Yes Right Common Femoral Normal Yes Phasic Yes Updated by Alan Dumas MD on 06/29/2016 6:17:36 PM electronically signed on 06/29/2016 6:17:45 PM with status of Final
[2016-06-29] MEDS ORDERED: *HR* Morphine Immed Rel 30 MG TABLET PO SCH (21:00)
[2016-06-29] MEDS ORDERED: Insulin DETEMIR 100 UNIT/ML X5UNITS SQ SCH (21:00)
[2016-06-30] MEDS: *HR* Morphine Immed Rel 30 MG TABLET PO SCH ×4 (01:05→20:39)
[2016-06-30] MEDS: *HR* HYDROmorphone (PF) 1 MG/ML SYRINGE IVP PRN ×4 (03:58→23:00)
[2016-06-30] MEDS: Vancomycin 1,250 MG in D5% in Water 250 ML IVPB SCH (04:11)
[2016-06-30 04:41] LABS: Hemoglobin A1C 7.5 %
[2016-06-30 04:42] LABS: BUN/Creatinine Ratio 17 (6-26); Blood Urea Nitrogen 23 mg/dL (8-26); Calcium 8.4 mg/dL (8.6-10.8); Carbon Dioxide 27 mEq/L (19-29); Chloride 96 mEq/L (98-109); Glucose 222 mg/dL (70-99); Magnesium 1.3 mg/dL (1.6-2.6); Osmolality,Calculated 279 (280-300); Phosphorous 3.1 mg/dL (2.3-4.7); Sodium 129 mEq/L (136-145); eGFR For African Americans > 60 (> 60); eGFR For Non-African Americans 55 (> 60)
[2016-06-30 04:45] LABS: % Iron Saturation 27 % (20-55); Iron 21 mcg/dL (65-175); Transferrin 56 mg/dL (174-364)
[2016-06-30 04:50] LABS: Basophils % 0.1 %; Eosinophils # 0.4 K/mcL (0.0-0.6); Eosinophils % 2.5 %; Hematocrit 23.9 % (37.5-50.1); Hemoglobin 7.7 g/dL (12.9-16.9); Immature Granulocytes % 1.1 % (0-4); Lymphocytes # 1.6 K/mcL (0.6-4.6); Lymphocytes % 10.2 %; Mean Corpuscular HGB Conc 32.2 g/dL (31.6-35.5); Mean Corpuscular Hemoglobin 30.9 pg (28.0-33.3); Mean Platelet Volume 9.3 fL (9.4-12.4); Monocytes # 0.8 K/mcL (0.0-1.3); Monocytes % 4.9 %; Neutrophils # 12.5 K/mcL (1.6-8.9); Platelet Count 299 K/mcL (140-400); Red Blood Count 2.49 M/mcL (4.19-5.50); Red Cell Distribution Width 13.4 % (11.5-14.5); Segmented Neutrophils % 81.2 %
[2016-06-30 05:05] LABS: Ferritin 1068 ng/ml (22-275)
[2016-06-30 05:19] LABS: Folate 12.5 ng/mL (7.0-31.4)
[2016-06-30] MEDS: *HR* Heparin 5,000 UNIT/ML VIAL SQ SCH ×2 (06:58→17:59)
[2016-06-30] MEDS: Insulin LISPRO 300 UNITS/3 ML VIAL SQ SCH ×4 (07:21→20:44)
[2016-06-30] MEDS: Metoprolol 100 MG TABLET PO SCH ×2 (08:14→20:38)
--- NOTE | 2016-06-30 08:56 | Anesthesia Evaluation PreOp ---
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 Foot sx, I&D Right Heel) Alcohol Use: none Drug use: marijuana Medications and Allergies Gabapentin [Neurontin] 800 mg PO TID 12/20/15 [History] Insulin ASPART [Novolog] 2 - 12 unit SQ QID 12/20/15 [History] Insulin DETEMIR [Levemir] 65 unit SQ BID 12/20/15 [History] Metoprolol [Lopressor] 100 mg PO BID 12/20/15 [History] Magnesium Oxide [Mag-Ox] 400 mg PO BID 30 Days 12/23/15 [Rx] Aspirin Enteric Coated [Aspirin EC] 81 mg PO DAILY 01/21/16 [History] Atorvastatin Calcium [Lipitor] 20 mg PO DAILY 01/21/16 [History] Clopidogrel [Plavix] 75 mg PO DAILY 30 Days 01/30/16 [Rx] Ferrous Sulfate 325 mg PO BIDWM 30 Days 01/30/16 [Rx] Folic Acid 1 mg PO DAILY 30 Days 01/30/16 [Rx] CloNIDine HCl 0.1 mg PO TID 04/12/16 [History] Omeprazole [PriLOSEC] 40 mg PO DAILY 04/12/16 [History] Citalopram Hydrobromide [Citalopram HBr] 40 mg PO DAILY 30 Days 04/20/16 [Rx] Amino Acids/Protein Hydrolys [Pro-Stat Awc Liquid] 30 ml PO BID 05/07/16 [ History] Cyclobenzaprine [Flexeril] 10 mg PO TID PRN 05/07/16 [History] Multivitamin [Multi-Day Vitamins] 1 each PO DAILY 05/07/16 [History] Oxycodone HCl/Acetaminophen [Percocet 10-325 mg Tablet] 1 each PO Q6H PRN #20 tablet 05/10/16 [Rx] Furosemide [Lasix] 40 mg PO DAILY 06/28/16 [History] Morphine Sulfate 15 mg PO QID PRN 06/28/16 [History] Allergies No Known Allergies Allergy (Verified 06/28/16 14:37) - Meds/Allergy Pre-op Review Medications Reviewed: Yes Allergies Reviewed: Yes Beta Blockers on Current Med List: Yes If Beta Blockers taken, Date/Time (Last Dose taken): 08:14 06/30/2106 Anesthesia Results - Labs 06/30/16 04:14 06/30/16 04:14 02/01/16 Echo EF- 55% - Imaging EKG: image reviewed () Anesthesia Exam O2 Sat Weight 125.6 kg O2 Sat by Pulse Oximetry 96 O2 Sat by Pulse Oximetry 94 O2 Sat by Pulse Oximetry 95 O2 Sat by Pulse Oximetry 95 O2 Sat by Pulse Oximetry 95 O2 Sat by Pulse Oximetry 95 Vital Signs Temp Pulse Resp BP Pulse Ox 100.1 F H 120 18 137/76 99 06/28/16 11:05 06/28/16 11:05 06/28/16 11:05 06/28/16 11:05 06/28/16 11:05 Vital Signs/O2 Sat, Most Current Temp Pulse Resp BP Pulse Ox 98.2 F 98 16 105/76 96 06/30/16 07:34 06/30/16 07:34 06/30/16 07:34 06/30/16 07:34 06/30/16 07:34 Height: 5'11'' Weight: 2176# - HEENT Pupil (Motor): Pupils equal, EOMI Mallampati: III Teeth: Poor dentition Oral Opening: Greater than 3 - ENGINEERING GEOLOGIST LOC: Oriented ENGINEERING GEOLOGIST Motor: Normal RUE, Normal LUE, Normal RLE, Normal LLE, Normal Face ENGINEERING GEOLOGIST Sensory: Normal: RUE, LUE, RLE, LLE, Face - Cardiac Rhythm: Regular Murmur: None JVD: No Carotid Bruit: No - Pulmonary Breath Sounds: bilateral Clear Respiratory Effort: Symmetrical Anesthesia Assess/Plan ASA Score: 3 Modified Bozrah Scale for Level of Consciousness: Cooperative, oriented, and tranquil Anesthetic Plan: MAC Autologous Blood: Yes Monitoring Plan: Standard Monitors Recovery Plan: Other
[2016-06-30] MEDS ORDERED: Bupivacaine/Clonidine Syringe 1 EACH SYRINGE ONE (09:10)
[2016-06-30] MEDS ORDERED: *HR* FentaNYL (PF) 100 MCG/2 ML VIAL ONE (09:35)
[2016-06-30] MEDS ORDERED: *HR* Midazolam HCl 2 MG/2 ML VIAL ONE (09:35)
[2016-06-30] MEDS ORDERED: Propofol 500 MG/50 ML INFUS..BTL ONE (09:35)
[2016-06-30] MEDS ORDERED: Lidocaine -MPF 2% 2 ML VIAL ONE (09:41)
--- NOTE | 2016-06-30 10:08 | Podiatry Progress Note ---
Date of Encounter: 06/29/16 Time of Encounter: 18:00 - Assessment and Plan (1) Foot ulcer with fat layer exposed Current Visit: No Status: Acute Assessment: #1 significant for ulceration with abscess left foot multiple areas #2 bacteremia/sepsis. #3 diabetes with multiple comorbidities including angiopathy nephropathy neuropathy. Plan: #1 we will proceed to the operating room tomorrow 11/28/2016 for formal incision and drainage to determine the extent of the infection. Patient understands that this infection may be so pronounced and advanced that limb salvage may not be possible. Nonetheless we need to perform a formal incision and drainage in hopes of limb salvage. Subjective Principal diagnosis: Abscess left foot Interval history: Patient states that he noticed immediately a formation of a large blister on the dorsal lateral aspect of the left foot without any history of injury or trauma per patient. Patient noticed the lesion a broken open and it drained. Patient then eventually presented to the ED and was admitted for likely sepsis with positive blood cultures at this juncture and a significant erosive abscess with multiple areas involving the dorsal aspect of his left foot. He presently has constitutional symptoms of infection with history of fever and chills nausea and malaise fatigue. Recommended that the patient proceed to the operating room for formal incision and drainage and debridement and application of wound VAC and deep cultures. We discussed risks versus benefits as well as alternatives to the surgical procedure. All questions were answered to his satisfaction. No guarantees or assurances were made to the patient. He voices comprehension and agrees to plan of care. Objective - Vital Signs Vital Signs: Vital Signs Temp Pulse Resp BP Pulse Ox 06/30/16 07:34 98.2 F 98 16 105/76 96 06/30/16 04:37 98.5 F 81 16 123/75 94 L 06/29/16 23:49 98.8 F 71 16 136/79 95 06/29/16 19:32 98.5 F 98 18 130/62 95 06/29/16 15:00 98.2 F 78 18 125/89 95 06/29/16 11:04 96 139/94 06/29/16 11:00 94 18 139/94 95 Intake and Output 06/29/16 06/30/16 06/30/16 23:59 07:59 15:59 Intake Total 350 / 350 Output Total 750 / 750 400 / 400 Balance -400 / -400 -400 / -400 Intake: IV Fluids 350 / 350 Zosyn 3.375 GM In 100 / 100 Dextrose 5% (Minibag+) 100 ML 100 ML @ 25 mls/hr IVPB Q8HR [facility] Rx#: [id number] Vancocin 1,250 MG In 250 / 250 Dextrose 5% 250 ML @ 166. 67 mls/hr IVPB Q12H [facility] Rx#:[id number] Output: Urine 750 / 750 400 / 400 Other: Weight 125.6 kg Blood Glucose* 242 250 Patient Weight 06/30/16 23:59 Weight 125.6 kg - Exam Exam: We observe a large draining ulcerative area on the dorsal aspect of his left foot measuring approximately 4 cm x 3 cm x 1.5 cm deep. We see global edema of the left foot and ankle leg. We see a wound on the plantar aspect of his left foot as well which continues to drain. - Lab Result Diagrams: 06/30/16 04:14 06/30/16 04:14 Labs: Abnormal lab results WBC 15.4 K/mcL (4.3-11.1) H 06/30/16 04:14 RBC 2.49 M/mcL (4.19-5.50) L 06/30/16 04:14 Hgb 7.7 g/dL (12.9-16.9) L 06/30/16 04:14 Hct 23.9 % (37.5-50.1) L 06/30/16 04:14 MPV 9.3 fL (9.4-12.4) L 06/30/16 04:14 Neutrophils # 12.5 K/mcL (1.6-8.9) H 06/30/16 04:14 ESR 99 mm/hr (0-10) H 06/28/16 12:03 PT 15.5 Seconds (9.4-12.1) H 06/28/16 12:08 Sodium 129 mEq/L (136-145) L 06/30/16 04:14 Chloride 96 mEq/L (98-109) L 06/30/16 04:14 Creatinine 1.36 mg/dL (0.72-1.25) H 06/30/16 04:14 Est GFR (Non-Af Amer) 55 (> 60) L 06/30/16 04:14 Glucose 222 mg/dL (70-99) H 06/30/16 04:14 POC Glucose 250 (58-89) H 06/30/16 07:37 Hemoglobin A1c 7.5 % (-5.6) H 06/30/16 04:14 Calculated Osmolality 279 (280-300) L 06/30/16 04:14 Calcium 8.4 mg/dL (8.6-10.8) L 06/30/16 04:14 Magnesium 1.3 mg/dL (1.6-2.6) L 06/30/16 04:14 Iron 21 mcg/dL (65-175) L 06/30/16 04:14 Transferrin 56 mg/dL (174-364) L 06/30/16 04:14 Ferritin 1068 ng/ml (22-275) H 06/30/16 04:14 Albumin 1.9 g/dL (3.5-5.0) L 06/28/16 12:08 Globulin 6.0 g/dL (2.4-3.5) H 06/28/16 12:08 Albumin/Globulin Ratio 0.3 (1.1-2.2) L 06/28/16 12:08 Consult Discharge Plan - Plan Referrals: Sukumar Garrett MD [Primary Care Provider] -
[2016-06-30] MEDS ORDERED: Ondansetron 4 MG/2 ML VIAL ONE (10:42)
[2016-06-30] MEDS: Piperacillin/Tazobactam 3.375 GM in D5% in Water (Mini-Bag+) 100 ML IVPB SCH ×2 (12:03→18:02)
[2016-06-30] MEDS: Aspirin Enteric Coated 81 MG Tablet PO SCH (12:06)
[2016-06-30] MEDS: Magnesium Oxide 400 MG TABLET PO SCH ×2 (12:06→20:43)
[2016-06-30] MEDS: cloNIDine HCl 0.1 MG TABLET PO SCH ×3 (12:06→20:41)
[2016-06-30] MEDS: Folic Acid 1 MG TABLET PO SCH (12:06)
[2016-06-30] MEDS: Gabapentin 400 MG CAPSULE PO SCH ×3 (12:07→20:41)
[2016-06-30] MEDS: Furosemide 40 MG TABLET PO SCH (12:07)
--- NOTE | 2016-06-30 12:32 | Orthopedic Operative Note ---
Date of procedure: 06/30/16 Pre-op diagnosis: Abscess/ulceration dorsal aspect left foot Post-op diagnosis: same Procedure: 06/30/16 12:24 #1 incision drainage and debridement to bone/cortex for osteomyelitis left foot #2 application of wound VAC Implants: None Complications: None Anesthesia: MAC Local Anesthetics: 0.25% Sensorcaine HCL SubQ (cc) Surgeon: King Peters Estimated blood loss (cc): 10 Tourniquet Time (Minutes): 0 Specimen: Swab cultures left foot aerobe and anaerobe Condition: stable Disposition: floor Procedure in Detail: 06/30/16 12:25 Details in summary of procedure: The patient was brought to the surgical suite. A sign in procedure was performed. Patient was then transferred to the surgical table and positioned properly safely securely. The left foot is elevated on a foam block. No tourniquet was used. The left ankle was then prepped with alcohol 3 times. Patient was then sedated after anesthetic timeout an ankle block was carried out without difficulty or complication. Left foot was then prepped and draped in usual sterile manner. Surgical timeout was taken. Patient was noted to have a previous wound on the plantar aspect of the second metatarsal which is healed concern for possible discovery of a sinus tract from the plantar aspect to the lateral aspect was a concern. A small incision was placed over the center of the previous wound with a #15 scalpel blade and using a sterile blunt straight iris scissor was explored and no purulent drainage was noted. No fluctuance. No evidence of active infection on the plantar distal aspect of the foot. Therefore I concluded that there was no direct connection between this wound which was previously treated in the present wound on the dorsal aspect of the lateral foot. Attention was then turned to the dorsal lateral aspect where we see a 4 cm wide 3 cm long wound which was at least 1.5 cm deep and can be palpated with finger dissection down to the periosteum of the base of the fourth/fifth metatarsals. We observe the wound and with finger dissection we discovered a tunnel from the dorsal aspect of the base of fourth and fifth metatarsals to the proximal plantar aspect the lateral plantar 2 fingerbreadths proximal to the base of the fifth metatarsal. Another tunnel was then discovered distally along the deep fascia just superior to the fourth and fifth metatarsals. The distal tunnel was approximately 5 cm in length and the lateral sinus tract/tunnel was approximately 6 cm. That juncture #15 scalpel blade was used to perform an incision from the 2 o'clock position the ulceration toward the junction of the lateral plantar skin and a proximal fashion exposing the tunnel laterally. Peroneus brevis tendon was exposed. Purulent drainage is expressed and cultured immediately. Aerobe and anaerobes were performed. The wound was then debrided of all nonviable tissue with the pickups and scissors. No tunnel was found approximately 2 cm from lateral to medial along the base of the metatarsals. That juncture the wound was debrided again with ultrasonic Misonic debrider throughout the wound. Judicious use of the Bovie maintained hemostasis. After complete debridement. The wound was inspected again. A 3-0 Prolene was used to close the proximal incision. That juncture the skin was prepped with allkare and a wound VAC was applied with sponges placed in each tunnel without difficulty. The wound VAC was then employed and found to function properly.
--- NOTE | 2016-06-30 14:07 | Anesthesia Evaluation Post Op ---
Date of Encounter: 06/30/16 Time of Encounter: 13:00 - Vital Signs Vital Signs: Vital Signs/O2 Sat, Most Current Temp Pulse Resp BP Pulse Ox 97.4 F L 70 16 137/84 100 06/30/16 11:46 06/30/16 11:46 06/30/16 11:46 06/30/16 11:46 06/30/16 11:46 - Lungs Lungs: Clear Ascult./Percussion - Airway Airway: Non-obstructed - Cardiovascular Regular Rate - Mental Status Mental Status: Alert & Oriented, Answers Appropriately - Pain Pain Scale: 0 Pain Scale used: Numeric (1 - 10) - Nausea Vomiting Nausea Vomiting: Not Present - Hydration Hydration: NPO, Has not voided - Discharge PostOp Status: Transfer Patient to floor
[2016-06-30] MEDS ORDERED: D5% in Water 1,000 ML IV PRN (15:06)
[2016-06-30] MEDS ORDERED: *HR* Dextrose 50 % in Water (Syg) 50 ML SYRINGE IVP PRN (15:06)
[2016-06-30] MEDS ORDERED: Ondansetron 4 MG/2 ML VIAL IVP PRN (15:06)
[2016-06-30] MEDS ORDERED: Dextrose Gel 15 GM PO PRN ×2 (15:06)
[2016-06-30] MEDS ORDERED: Naloxone 0.4 MG/ML INJ IVP PRN (15:06)
[2016-06-30] MEDS ORDERED: Vancomycin 1,250 MG in D5% in Water 250 ML IVPB SCH (16:00)
--- NOTE | 2016-06-30 18:14 | Internal Med Progress Note ---
Date of Encounter: 06/30/16 Time of Encounter: 18:11 - Assessment and plan (1) Gram-positive bacteremia Current Visit: Yes Status: Acute Assessment and plan: Blood cultures positive for gram-positive bacteria. Gram-positive cocci. Patient is presently on vancomycin. Patient underwent incision and drainage today. We will continue vancomycin for now. Transthoracic echocardiogram order has been placed (2) Sepsis Current Visit: Yes Status: Acute Assessment and plan: Patient presented with elevated white blood cell count, elevated lactic acid elevated temperature, tachycardia, and MRI evidence of osteomyelitis. He received 4 L bolus fluid yesterday evening with resolution of elevated lactic acid improvement in white blood cell count. Patient has been afebrile since admission and there has also been resolution patient tachycardia. We will continue empiric antibiotics with Zosyn and vancomycin Assessment diabetic foot ulcer by podiatry Will hold additional fluids for now Will closely monitor Qualifiers: Sepsis type: sepsis due to unspecified organism Qualified Code(s): A41.9 - Sepsis, unspecified organism (3) Foot ulcer due to secondary DM Current Visit: No Status: Acute Assessment and plan: Stage IV ulcer that is ~4cm in diameter. MRI shows osteomyelitis. Foot MRI 06/28/16 18:10 IMPRESSION: Large dorsal and lateral soft tissue ulceration at the level of the lateral midfoot. There is a large (approximately 8.5 x 4.3 x 3.6 cm) fluid collection associated with the medial aspect of the midfoot communicating with the tarsometatarsal articulations and abutting the naviculocuneiform articulations. Marrow changes are also noted throughout the midfoot. Septic arthritis, osteomyelitis and abscess formation is favored over Charcot arthropathy changes. Podiatry consulted and appreciate recommendations for continued management/care Patient receiving Vancomycin and Zosyn Treatment as above Patient takes 30 mg PO morphine at home usually for pain...will start 10 mg ER oxycodone, and have prn dilaudid and morphine (4) Cellulitis of leg, left Current Visit: Yes Status: Acute Assessment and plan: Cellulitis related to current infected foot ulcer and osteomyelitis, on left. Tenderness and erythema spreads to the midcalf. Treatment as above - Subjective Interval history: seen and examined. S/P I and D patient is drowsy unable to communicate. - Constitutional Vitals: Temp Pulse Resp BP Pulse Ox 98.3 F 75 16 133/77 100 06/30/16 15:51 06/30/16 15:51 06/30/16 15:51 06/30/16 15:51 06/30/16 15:51 General appearance: Present: A&O X 3, no acute distress - Head Head exam: Present: atraumatic, normocephalic - Eye Eye exam: Present: PERRL, conjuntiva pink, sclera anicteric Pupils: Present: PERRL - Neck Neck exam general surgery: Present: supple, trachea midline. Absent: lymphadenopathy - Respiratory Respiratory exam: Present: CTAB. Absent: accessory muscle use, rales, rhonchi, wheezes - Cardiovascular Cardiovascular exam: Present: RRR, +S1, +S2. Absent: diastolic murmur, gallop, rubs, systolic murmur - GI/Abdominal GI/Abdominal exam: Present: normal bowel sounds, soft, no peritoneal signs. Absent: distended, tenderness - Extremities Exam Extremities exam: Present: warm, radial pulses palpable and symetrical. Absent : calf tenderness, cyanotic, pedal edema - Neurological Exam Neurological exam: Present: CN II-XII intact, oriented X3, no focal deficits. Absent: pronater drift, facial droop, speech deficit - Skin Skin exam: Present: dry, intact Internal Medicine: Result - Labs CBC & Chem 7: 06/30/16 04:14 06/30/16 04:14 Labs: Short CBC 06/30/16 Range/Units 04:14 WBC 15.4 H (4.3-11.1) K/mcL Hgb 7.7 L (12.9-16.9) g/dL Hct 23.9 L (37.5-50.1) % Plt Count 299 (140-400) K/mcL Neutrophils # 12.5 H (1.6-8.9) K/mcL BMP 06/30/16 04:14 Sodium 129 L Potassium 4.0 Chloride 96 L Carbon Dioxide 27 BUN 23 Creatinine 1.36 H Glucose 222 H Calcium 8.4 L - ABG Interpretation ABG results: PT/INR, D-dimer PT 15.5 Seconds (9.4-12.1) H 06/28/16 12:08 Consult Discharge Plan - Plan Referrals: Sukumar Garrett MD [Primary Care Provider] -
[2016-07-01] MEDS: Piperacillin/Tazobactam 3.375 GM in D5% in Water (Mini-Bag+) 100 ML IVPB SCH ×3 (00:24→17:31)
[2016-07-01] MEDS: *HR* Morphine Immed Rel 30 MG TABLET PO SCH ×4 (01:50→19:54)
[2016-07-01] MEDS: *HR* HYDROmorphone (PF) 1 MG/ML SYRINGE IVP PRN ×5 (03:38→21:35)
[2016-07-01 04:34] LABS: Basophils % 0.3 %; Eosinophils # 0.3 K/mcL (0.0-0.6); Eosinophils % 2.5 %; Hematocrit 21.8 % (37.5-50.1); Immature Granulocytes % 1.5 % (0-4); Lymphocytes # 1.3 K/mcL (0.6-4.6); Lymphocytes % 11.1 %; Mean Corpuscular HGB Conc 32.1 g/dL (31.6-35.5); Mean Corpuscular Volume 96.5 fL (83.0-100.0); Mean Platelet Volume 9.1 fL (9.4-12.4); Monocytes # 0.8 K/mcL (0.0-1.3); Monocytes % 6.7 %; Neutrophils # 9.1 K/mcL (1.6-8.9); Platelet Count 256 K/mcL (140-400); Red Blood Count 2.26 M/mcL (4.19-5.50); Red Cell Distribution Width 13.7 % (11.5-14.5); Segmented Neutrophils % 77.9 %
[2016-07-01 04:47] LABS: Alanine Aminotransferase 7 Units/L (0-55); Albumin/Globulin Ratio 0.3 (1.1-2.2); Alkaline Phosphatase 128 Units/L (38-126); Aspartate Amino Transferase 10 Units/L (5-34); BUN/Creatinine Ratio 12 (6-26); Bilirubin,Total 0.3 mg/dL (0.2-1.2); Blood Urea Nitrogen 18 mg/dL (8-26); Calcium 8.4 mg/dL (8.6-10.8); Carbon Dioxide 23 mEq/L (19-29); Chloride 100 mEq/L (98-109); Globulin 5.1 g/dL (2.4-3.5); Glucose 413 mg/dL (70-99); Osmolality,Calculated 289 (280-300); Potassium 4.4 mEq/L (3.5-4.5); Sodium 130 mEq/L (136-145); Total Protein 6.6 g/dL (6.0-8.3); eGFR For African Americans > 60 (> 60); eGFR For Non-African Americans 51 (> 60)
[2016-07-01 04:50] LABS: Albumin 1.5 g/dL (3.5-5.0)
[2016-07-01] MEDS: *HR* Heparin 5,000 UNIT/ML VIAL SQ SCH ×2 (06:21→17:33)
[2016-07-01] MEDS: Vancomycin 1,250 MG in D5% in Water 250 ML IVPB SCH ×2 (06:21→17:32)
[2016-07-01] MEDS: Furosemide 40 MG TABLET PO SCH (07:52)
[2016-07-01] MEDS: Magnesium Oxide 400 MG TABLET PO SCH ×2 (07:52→21:36)
[2016-07-01] MEDS: Folic Acid 1 MG TABLET PO SCH (07:52)
[2016-07-01] MEDS: Gabapentin 400 MG CAPSULE PO SCH ×3 (07:53→21:36)
[2016-07-01] MEDS: Aspirin Enteric Coated 81 MG Tablet PO SCH (07:54)
[2016-07-01] MEDS: cloNIDine HCl 0.1 MG TABLET PO SCH ×3 (07:54→21:36)
[2016-07-01] MEDS: Insulin LISPRO 300 UNITS/3 ML VIAL SQ SCH ×4 (08:02→21:47)
[2016-07-01] MEDS: Metoprolol 100 MG TABLET PO SCH ×2 (11:42→21:36)
--- NOTE | 2016-07-01 14:28 | ECHO - Doppler Report ---
Echocardiogram Name: Jeanmarie Santacruz Date of Study: 07/01/2016 Date: 1960 Ht: 71.0 in Medical Record#: [id number] Age: 55 Wt: 276.0 lb Gender: Male BSA: 2.42 Order #: [id number] Location: [facility] Room #: [id number] Reading Physician: Dakota Leonard MD, [facility] Corporate Paralegal: Martine Rodriguez RDCS, T Ordering Physician: Alvin Lau MD Primary Physician: None Indications: Bacteremia Impressions: LVEF 50-55%. Severely dilated left atrium. Severely dilated right atrium. No significant valvular dysfunction. The IVC is dilated with <50% respiratory variation Left Ventricular Wall Motion: Rest Echo Findings All wall segments showed normal motion. Findings: Study Quality * Technically adequate exam. Aortic Valve * Trileaflet aortic valve with normal function. Interatrial Septum * No definite evidence of PFO by color Doppler. Aorta * Normally sized aortic root. Pericardium * The pericardium appears normal. Left Ventricle * LVEF 50-55%. * Indeterminate diastolic function. ECG Findings * Normal sinus rhythm. Left Atrium * Severely dilated left atrium. Tricuspid Valve * No pulmonary hypertension. * Trace tricuspid regurgitation. * No tricuspid stenosis. * Estimated RA pressure is 10-15 mmHg. * Estimated RVSP is 24 mmHg. Pulmonic Valve * No pulmonic regurgitation. * No pulmonic stenosis. Mitral Valve * Normal mitral valve structure. * Trace mitral regurgitation. * No mitral stenosis. Right Ventricle * Mildly dilated right ventricle with normal function Right Atrium * Severely dilated right atrium. IVC * The IVC is dilated. * < 50% respiratory change. History Hypertension Diabetes Hypercholesteremia 8-7-16 a Previous Echo was performed. Measurements: BP: 117/ 64 2D Normal Values RVIDd: 5.38 cm <2.7 cm IVSd: .95 cm 0.6 - 1.0 cm LVIDd: 5.63 cm 3.7 - 5.6 cm LVPWd: .91 cm 0.6 - 1.1 cm LVIDs: 3.67 cm 1.5 - 3.6 cm AO: 2.70 cm < 4.0 cm LA: 5.10 cm 2.0 - 4.0cm %FS: 34.80 cm >25 % LA volume: 68 Mitral Valve Peak E:1.24 m/sec Peak A:.70 m/sec E/A Ratio:1.8 Peak E' Lat Bowen:7.94 cm/s Peak E' Med Bowen:7.07 cm/s E/E' Lat Ratio:15.6 E/E' Med Ratio:17.5 Tricuspid Valve TV Regurg Peak Grad: 24.00mmHg TV Regurg Peak Bowen: 2.43m/sec Updated by Dakota Leonard MD, [facility] on 07/01/2016 2:20:59 PM electronically signed on 07/01/2016 2:24:55 PM with status of Final Wall Motion Pablo: 1=Normal, 2=Hypokinesis, 3=Akinesis, 4=Dyskinesis, 5=Aneurysmal, 6=Hyperkinetic, X=Not Visualized (Blank)=Missing
--- NOTE | 2016-07-01 18:01 | Internal Med Progress Note ---
Date of Encounter: 07/01/16 Time of Encounter: 17:57 - Assessment and plan (1) Gram-positive bacteremia Current Visit: Yes Status: Acute Assessment and plan: Blood cultures positive for gram-positive bacteria. Gram-positive cocci. Patient is presently on vancomycin. Patient underwent incision and drainage today. We will continue vancomycin for now. Transthoracic echocardiogram order has been placed 07/01/2016 Group B strep in blood. ECHO negative for vegetations. likely source wound from lower extremity will continue present treatment may need to deacclerate abx. D/W Dr Peters : 6 weeks of total abx ( bone deep infection) He needs wound vac ( Dr ePters will arrange) placement for rehab and Abx (2) Sepsis Current Visit: Yes Status: Acute Assessment and plan: Patient presented with elevated white blood cell count, elevated lactic acid elevated temperature, tachycardia, and MRI evidence of osteomyelitis. He received 4 L bolus fluid yesterday evening with resolution of elevated lactic acid improvement in white blood cell count. Patient has been afebrile since admission and there has also been resolution patient tachycardia. We will continue empiric antibiotics with Zosyn and vancomycin Assessment diabetic foot ulcer by podiatry Will hold additional fluids for now Will closely monitor Qualifiers: Sepsis type: sepsis due to unspecified organism Qualified Code(s): A41.9 - Sepsis, unspecified organism (3) Foot ulcer due to secondary DM Current Visit: No Status: Acute Assessment and plan: Stage IV ulcer that is ~4cm in diameter. MRI shows osteomyelitis. Foot MRI 06/28/16 18:10 IMPRESSION: Large dorsal and lateral soft tissue ulceration at the level of the lateral midfoot. There is a large (approximately 8.5 x 4.3 x 3.6 cm) fluid collection associated with the medial aspect of the midfoot communicating with the tarsometatarsal articulations and abutting the naviculocuneiform articulations. Marrow changes are also noted throughout the midfoot. Septic arthritis, osteomyelitis and abscess formation is favored over Charcot arthropathy changes. Podiatry consulted and appreciate recommendations for continued management/care Patient receiving Vancomycin and Zosyn Treatment as above Patient takes 30 mg PO morphine at home usually for pain...will start 10 mg ER oxycodone, and have prn dilaudid and morphine (4) Cellulitis of leg, left Current Visit: Yes Status: Acute Assessment and plan: Cellulitis related to current infected foot ulcer and osteomyelitis, on left. Tenderness and erythema spreads to the midcalf. Treatment as above - Subjective Interval history: seen and examined. S/P I and D patient is drowsy unable to communicate. 07/01/2016 seen and examined. patient is under the effect of narcotics poor communication case discussed with Dr Peters at length - Need 6 weeks of abx -Wound vac prescription : Dr Peters will arrange. - Constitutional Vitals: Temp Pulse Resp BP Pulse Ox 99.7 F H 86 16 133/88 98 07/01/16 15:50 07/01/16 15:50 07/01/16 15:50 07/01/16 15:50 07/01/16 15:50 General appearance: Present: A&O X 3, no acute distress - Head Head exam: Present: atraumatic, normocephalic - Eye Eye exam: Present: PERRL, conjuntiva pink, sclera anicteric Pupils: Present: PERRL - Neck Neck exam general surgery: Present: supple, trachea midline. Absent: lymphadenopathy - Respiratory Respiratory exam: Present: CTAB. Absent: accessory muscle use, rales, rhonchi, wheezes - Cardiovascular Cardiovascular exam: Present: RRR, +S1, +S2. Absent: diastolic murmur, gallop, rubs, systolic murmur - GI/Abdominal GI/Abdominal exam: Present: normal bowel sounds, soft, no peritoneal signs. Absent: distended, tenderness - Extremities Exam Extremities exam: Present: warm, radial pulses palpable and symetrical. Absent : calf tenderness, cyanotic, pedal edema - Neurological Exam Neurological exam: Present: CN II-XII intact, oriented X3, no focal deficits. Absent: pronater drift, facial droop, speech deficit - Skin Skin exam: Present: dry, intact Internal Medicine: Result - Labs CBC & Chem 7: 07/01/16 04:03 07/01/16 04:03 Labs: Short CBC 07/01/16 Range/Units 04:03 WBC 11.7 H (4.3-11.1) K/mcL Hgb 7.0 L (12.9-16.9) g/dL Hct 21.8 L (37.5-50.1) % Plt Count 256 (140-400) K/mcL Neutrophils # 9.1 H (1.6-8.9) K/mcL BMP 07/01/16 04:03 Sodium 130 L Potassium 4.4 Chloride 100 Carbon Dioxide 23 BUN 18 Creatinine 1.46 H Glucose 413 H Calcium 8.4 L Liver Function 07/01/16 Range/Units 04:03 Total Bilirubin 0.3 (0.2-1.2) mg/dL AST 10 (5-34) Units/L ALT 7 (0-55) Units/L Alkaline Phosphatase 128 H (38-126) Units/L Albumin 1.5 L D (3.5-5.0) g/dL - ABG Interpretation ABG results: PT/INR, D-dimer PT 15.5 Seconds (9.4-12.1) H 06/28/16 12:08 - VTE Documentation of Mechanical Device: Intermittent pneumatic compression device Consult Discharge Plan - Plan Referrals: Sukumar Garrett MD [Primary Care Provider] -
[2016-07-02] MEDS: Piperacillin/Tazobactam 3.375 GM in D5% in Water (Mini-Bag+) 100 ML IVPB SCH ×3 (00:41→16:22)
[2016-07-02] MEDS: *HR* HYDROmorphone (PF) 1 MG/ML SYRINGE IVP PRN ×6 (01:55→23:44)
[2016-07-02] MEDS: *HR* Morphine Immed Rel 30 MG TABLET PO SCH ×4 (02:43→20:38)
[2016-07-02] MEDS: Vancomycin 1,250 MG in D5% in Water 250 ML IVPB SCH ×2 (06:20→16:23)
[2016-07-02] MEDS: *HR* Heparin 5,000 UNIT/ML VIAL SQ SCH ×2 (06:21→16:22)
[2016-07-02 06:22] LABS: Basophils % 0.2 %; Eosinophils # 0.3 K/mcL (0.0-0.6); Eosinophils % 4.1 %; Hematocrit 21.1 % (37.5-50.1); Hemoglobin 6.7 g/dL (12.9-16.9); Immature Granulocytes % 1.4 % (0-4); Immature Platelets 1.8 % (1.1-6.1); Lymphocytes # 1.2 K/mcL (0.6-4.6); Lymphocytes % 14.7 %; Mean Corpuscular HGB Conc 31.8 g/dL (31.6-35.5); Mean Corpuscular Hemoglobin 31.2 pg (28.0-33.3); Mean Corpuscular Volume 98.1 fL (83.0-100.0); Monocytes # 0.7 K/mcL (0.0-1.3); Monocytes % 8.3 %; Neutrophils # 5.9 K/mcL (1.6-8.9); Platelet Count 270 K/mcL (140-400); Red Blood Count 2.15 M/mcL (4.19-5.50); Red Cell Distribution Width 13.2 % (11.5-14.5); Segmented Neutrophils % 71.3 %
[2016-07-02 06:42] LABS: Alanine Aminotransferase 7 Units/L (0-55); Albumin/Globulin Ratio 0.3 (1.1-2.2); Alkaline Phosphatase 123 Units/L (38-126); Aspartate Amino Transferase 11 Units/L (5-34); BUN/Creatinine Ratio 15 (6-26); Bilirubin,Total 0.3 mg/dL (0.2-1.2); Blood Urea Nitrogen 18 mg/dL (8-26); Calcium 8.8 mg/dL (8.6-10.8); Carbon Dioxide 24 mEq/L (19-29); Chloride 99 mEq/L (98-109); Globulin 5.3 g/dL (2.4-3.5); Glucose 357 mg/dL (70-99); Osmolality,Calculated 288 (280-300); Potassium 4.6 mEq/L (3.5-4.5); Sodium 131 mEq/L (136-145); Total Protein 6.7 g/dL (6.0-8.3); eGFR For African Americans > 60 (> 60); eGFR For Non-African Americans > 60 (> 60)
[2016-07-02 06:43] LABS: Albumin 1.4 g/dL (3.5-5.0)
[2016-07-02] MEDS: Metoprolol 100 MG TABLET PO SCH ×2 (08:18→20:38)
[2016-07-02] MEDS: Gabapentin 400 MG CAPSULE PO SCH ×3 (08:18→20:38)
[2016-07-02] MEDS: Furosemide 40 MG TABLET PO SCH (08:18)
[2016-07-02] MEDS: Aspirin Enteric Coated 81 MG Tablet PO SCH (08:18)
[2016-07-02] MEDS: cloNIDine HCl 0.1 MG TABLET PO SCH ×3 (08:19→20:38)
[2016-07-02] MEDS: Magnesium Oxide 400 MG TABLET PO SCH ×2 (08:19→20:38)
[2016-07-02] MEDS: Folic Acid 1 MG TABLET PO SCH (08:19)
[2016-07-02] MEDS: Insulin LISPRO 300 UNITS/3 ML VIAL SQ SCH ×4 (08:20→22:40)
--- NOTE | 2016-07-02 17:15 | Podiatry Progress Note ---
Date of Encounter: 07/02/16 Time of Encounter: 16:40 - Assessment and Plan (1) Cellulitis of leg, left Current Visit: Yes Status: Acute (2) Osteomyelitis of foot, left, acute Current Visit: Yes Status: Acute 1. Erythema and swelling are resolving. Wound vac changed at bedside. 2. Once patient is medically stable patient can be discharged to an ECF. 3. Wound Cultures isolated Strep agalactiae (Group B), receiving IV Vancomycin. 4. Recommend continuation of IV Vancomycin x 6 weeks. Weekly labs and to include a CBC, creatinine, ESR, CRP, Vanc trough. 5, Wound vac to be changed every M-W-. 6. Patient will need a f/u appointment in wound care with Dr. Peters on 07/11/16. (3) Sepsis Current Visit: Yes Status: Acute Qualifiers: Sepsis type: sepsis due to unspecified organism Qualified Code(s): A41.9 - Sepsis, unspecified organism (4) Type 2 diabetes mellitus Current Visit: Yes Status: Acute Qualifiers: Diabetes mellitus complication status: with circulatory complication Diabetes mellitus complication detail: with other circulatory complications Diabetes mellitus terminal clerk insulin use: with penitentiary use Qualified Code(s) : E11.59 - Type 2 diabetes mellitus with other circulatory complications; Z79.4 - long term acute care registered nurse (current) use of insulin Subjective Principal diagnosis: Abscess left foot Interval history: Patient is s/p I & D and debridement to bone cortex for osteomyelitis of the left foot with an application of a wound vac by Dr. Peters on 06/30/16. Patient is sitting up in bed. Patient has a wound vac intact to the left foot. No c/o fever, chills, cp, or sob. Patients hemoglobin today was 6.7, will be receiving a blood transfusion. Objective - Vital Signs Vital Signs: Vital Signs Temp Pulse Resp BP Pulse Ox 07/02/16 16:02 98.4 F 74 16 133/80 98 07/02/16 07:45 97.8 F 86 16 134/89 95 07/01/16 20:00 98.2 F 78 20 129/74 98 Intake and Output 07/02/16 07/02/16 07/02/16 07:59 15:59 23:59 Intake Total 250 / 250 570 / 570 Output Total 750 / 750 400 / 400 Balance 250 / 250 -180 / -180 -400 / -400 Intake: IV Fluids 250 / 250 90 / 90 Zosyn 3.375 GM In 90 / 90 Dextrose 5% (Minibag+) 100 ML 100 ML @ 25 mls/hr IVPB Q8HR [facility] Rx#: [id number] Vancocin 1,250 MG In 250 / 250 Dextrose 5% 250 ML @ 166. 67 mls/hr IVPB Q12HR [facility] Rx#:[id number] Oral 480 / 480 Output: Urine 750 / 750 400 / 400 Other: Meal Breakfast Percent of Meal Consumed 100% Blood Glucose* 352 225 210 - Exam Exam: General appearance: alert awake oriented X 3. Calm and pleasant, no acute distress.. Vascular: Pedal pulse non palpable secondary to edema. No evidence of cyanosis, pallor or rubor, Edema graded at 3+/4, Skin Temperature warm, capillary refill time is immediate to digits. Neurologic: Sensation diminished with light touch to foot. . Postop Exam: S/P Sutures intact to incision line, no signs of dehiscence. Full thickness wound to the dorsum of the left foot measuring 3 cm in length x 3.2 cm in width x 1 cm in depth, tunneling at 6 O'clock measuring 4 cm. Periwound erythema with edema. Macerated edges to the lateral wound border. No pus. No streaking. - Lab Result Diagrams: 07/02/16 06:02 07/02/16 06:02 Labs: Abnormal lab results RBC 2.15 M/mcL (4.19-5.50) L 07/02/16 06:02 Hgb 6.7 g/dL (12.9-16.9) L 07/02/16 06:02 Hct 21.1 % (37.5-50.1) L 07/02/16 06:02 MPV 9.0 fL (9.4-12.4) L 07/02/16 06:02 ESR 99 mm/hr (0-10) H 06/28/16 12:03 PT 15.5 Seconds (9.4-12.1) H 06/28/16 12:08 Sodium 131 mEq/L (136-145) L 07/02/16 06:02 Potassium 4.6 mEq/L (3.5-4.5) H 07/02/16 06:02 Glucose 357 mg/dL (70-99) H 07/02/16 06:02 POC Glucose 352 (58-89) H 07/02/16 07:49 Hemoglobin A1c 7.5 % (-5.6) H 06/30/16 04:14 Magnesium 1.3 mg/dL (1.6-2.6) L 06/30/16 04:14 Iron 21 mcg/dL (65-175) L 06/30/16 04:14 Transferrin 56 mg/dL (174-364) L 06/30/16 04:14 Ferritin 1068 ng/ml (22-275) H 06/30/16 04:14 Albumin 1.4 g/dL (3.5-5.0) L 07/02/16 06:02 Globulin 5.3 g/dL (2.4-3.5) H 07/02/16 06:02 Albumin/Globulin Ratio 0.3 (1.1-2.2) L 07/02/16 06:02 Microbiology, Last 48 Hours 06/30/16 10:56 Wound Culture - Final Left Foot Strep agalactiae - (Group B) - VTE Documentation of Mechanical Device: Intermittent pneumatic compression device Consult Discharge Plan - Plan Referrals: Sukumar Garrett MD [Primary Care Provider] - 07/10/16 6:30 pm
--- NOTE | 2016-07-02 17:30 | Internal Med Progress Note ---
Date of Encounter: 07/02/16 Time of Encounter: 17:28 - Assessment and plan (1) Gram-positive bacteremia Current Visit: Yes Status: Acute Assessment and plan: Blood cultures positive for gram-positive bacteria. Gram-positive cocci. Patient is presently on vancomycin. Patient underwent incision and drainage today. We will continue vancomycin for now. Transthoracic echocardiogram order has been placed 07/01/2016 Group B strep in blood. ECHO negative for vegetations. likely source wound from lower extremity will continue present treatment may need to deacclerate abx. D/W Dr Peters : 6 weeks of total abx ( bone deep infection) He needs wound vac ( Dr Peters will arrange) placement for rehab and Abx 07/02/[address] Peters : need 6 weeks of abx to cover possible GPC, He will take care of wound Vac prescription will consider vanco ( after discussion with pharmacy) Need PICC line will get another blood culture total duraion of abx is 6 weeks need placement in NH/ECF plan discussed with patient and he verbalized understanding. (2) Sepsis Current Visit: Yes Status: Acute Assessment and plan: Patient presented with elevated white blood cell count, elevated lactic acid elevated temperature, tachycardia, and MRI evidence of osteomyelitis. He received 4 L bolus fluid yesterday evening with resolution of elevated lactic acid improvement in white blood cell count. Patient has been afebrile since admission and there has also been resolution patient tachycardia. We will continue empiric antibiotics with Zosyn and vancomycin Assessment diabetic foot ulcer by podiatry Will hold additional fluids for now Will closely monitor Qualifiers: Sepsis type: sepsis due to unspecified organism Qualified Code(s): A41.9 - Sepsis, unspecified organism (3) Foot ulcer due to secondary DM Current Visit: No Status: Acute Assessment and plan: Stage IV ulcer that is ~4cm in diameter. MRI shows osteomyelitis. Foot MRI 06/28/16 18:10 IMPRESSION: Large dorsal and lateral soft tissue ulceration at the level of the lateral midfoot. There is a large (approximately 8.5 x 4.3 x 3.6 cm) fluid collection associated with the medial aspect of the midfoot communicating with the tarsometatarsal articulations and abutting the naviculocuneiform articulations. Marrow changes are also noted throughout the midfoot. Septic arthritis, osteomyelitis and abscess formation is favored over Charcot arthropathy changes. Podiatry consulted and appreciate recommendations for continued management/care Patient receiving Vancomycin and Zosyn Treatment as above Patient takes 30 mg PO morphine at home usually for pain...will start 10 mg ER oxycodone, and have prn dilaudid and morphine (4) Cellulitis of leg, left Current Visit: Yes Status: Acute Assessment and plan: Cellulitis related to current infected foot ulcer and osteomyelitis, on left. Tenderness and erythema spreads to the midcalf. Treatment as above - Subjective Interval history: seen and examined. S/P I and D patient is drowsy unable to communicate. 07/01/2016 seen and examined. patient is under the effect of narcotics poor communication case discussed with Dr Peters at length - Need 6 weeks of abx -Wound vac prescription : Dr Peters will arrange. 07/02/2016 seen and examined. more alert and oriented. prefers to go to [place] for completion of abx podiatry feels severe infection of soft tissue and hence need 6 weeks of abx Need to cover gram positive organism : vancomycin for 6 weeks - Constitutional Vitals: Temp Pulse Resp BP Pulse Ox 98.4 F 74 16 133/80 98 07/02/16 16:02 07/02/16 16:02 07/02/16 16:02 07/02/16 16:02 07/02/16 16:02 General appearance: Present: A&O X 3, no acute distress - Head Head exam: Present: atraumatic, normocephalic - Eye Eye exam: Present: PERRL, conjuntiva pink, sclera anicteric Pupils: Present: PERRL - Neck Neck exam general surgery: Present: supple, trachea midline. Absent: lymphadenopathy - Respiratory Respiratory exam: Present: CTAB. Absent: accessory muscle use, rales, rhonchi, wheezes - Cardiovascular Cardiovascular exam: Present: RRR, +S1, +S2. Absent: diastolic murmur, gallop, rubs, systolic murmur - GI/Abdominal GI/Abdominal exam: Present: normal bowel sounds, soft, no peritoneal signs. Absent: distended, tenderness - Extremities Exam Extremities exam: Present: warm, radial pulses palpable and symetrical. Absent : calf tenderness, cyanotic, pedal edema - Neurological Exam Neurological exam: Present: CN II-XII intact, oriented X3, no focal deficits. Absent: pronater drift, facial droop, speech deficit - Skin Skin exam: Present: dry, intact Internal Medicine: Result - Labs CBC & Chem 7: 07/02/16 06:02 07/02/16 06:02 Labs: Short CBC 07/02/16 Range/Units 06:02 WBC 8.3 (4.3-11.1) K/mcL Hgb 6.7 L (12.9-16.9) g/dL Hct 21.1 L (37.5-50.1) % Plt Count 270 (140-400) K/mcL Neutrophils # 5.9 (1.6-8.9) K/mcL BMP 07/02/16 06:02 Sodium 131 L Potassium 4.6 H Chloride 99 Carbon Dioxide 24 BUN 18 Creatinine 1.18 Glucose 357 H Calcium 8.8 Liver Function 07/02/16 Range/Units 06:02 Total Bilirubin 0.3 (0.2-1.2) mg/dL AST 11 (5-34) Units/L ALT 7 (0-55) Units/L Alkaline Phosphatase 123 (38-126) Units/L Albumin 1.4 L (3.5-5.0) g/dL - ABG Interpretation ABG results: PT/INR, D-dimer PT 15.5 Seconds (9.4-12.1) H 06/28/16 12:08 - VTE Documentation of Mechanical Device: Intermittent pneumatic compression device Consult Discharge Plan - Plan Referrals: Sukumar Garrett MD [Primary Care Provider] - 07/10/16 6:30 pm
[2016-07-02] MEDS ORDERED: 0.9 % Sodium Chloride 1,000 ML ONE (20:53)
[2016-07-02] MEDS ORDERED: 0.9 % Sodium Chloride 250 ML ONE (20:57)
[2016-07-03] MEDS: Piperacillin/Tazobactam 3.375 GM in D5% in Water (Mini-Bag+) 100 ML IVPB SCH ×3 (01:03→16:54)
[2016-07-03] MEDS: *HR* Morphine Immed Rel 30 MG TABLET PO SCH ×4 (01:03→18:54)
[2016-07-03] MEDS: *HR* HYDROmorphone (PF) 1 MG/ML SYRINGE IVP PRN ×5 (04:05→20:48)
[2016-07-03] MEDS: Vancomycin 1,250 MG in D5% in Water 250 ML IVPB SCH (06:47)
[2016-07-03] MEDS: *HR* Heparin 5,000 UNIT/ML VIAL SQ SCH ×2 (06:47→16:53)
[2016-07-03] MEDS: cloNIDine HCl 0.1 MG TABLET PO SCH ×3 (08:24→20:48)
[2016-07-03] MEDS: Metoprolol 100 MG TABLET PO SCH ×2 (08:24→20:48)
[2016-07-03] MEDS: Magnesium Oxide 400 MG TABLET PO SCH ×2 (08:24→20:47)
[2016-07-03] MEDS: Insulin LISPRO 300 UNITS/3 ML VIAL SQ SCH ×4 (08:24→20:53)
[2016-07-03] MEDS: Gabapentin 400 MG CAPSULE PO SCH ×3 (08:24→20:47)
[2016-07-03] MEDS: Furosemide 40 MG TABLET PO SCH (08:24)
[2016-07-03] MEDS: Folic Acid 1 MG TABLET PO SCH (08:24)
[2016-07-03] MEDS: Aspirin Enteric Coated 81 MG Tablet PO SCH (08:24)
--- NOTE | 2016-07-03 09:54 | Internal Med Progress Note ---
<Sukumar Crane - Last Filed: 07/03/16 13:15> Date of Encounter: 07/03/16 Time of Encounter: 09:52 - Assessment and plan (1) Bacteremia due to group B Streptococcus Current Visit: Yes Status: Acute Assessment and plan: Blood cultures show Gram positive cocci in chains. PCR is positive for Group B strep drawn on 06/28/2016, patient currently on Zosyn and Levaquin for antibiotic coverage with repeat peripheral blood cultures drawn on 11/30/2016. Patient has been afebrile and plans to start a PICC line 48 hours after negative blood cultures and afebrile. Plan: - Will continue Zosyn and Levaquin - Tylenol as needed for fever - PICC line after negative blood cultures and afebrile 48 hours. Plan for 6 weeks IV antibiotics - Anaerobic culture drawn on 06/30/2016 results still pending. (2) Cellulitis of leg, left Current Visit: Yes Status: Acute Assessment and plan: Patient noted with left foot infection and left lower extremity cellulitis associated with bacteremia and sepsis. Patient's condition is improving status post wound debridement and antibiotic coverage. Plan: - Continue monitoring lower extremity cellulitis - Continue current antibiotic coverage. (3) Osteomyelitis of foot, left, acute Current Visit: Yes Status: Acute Assessment and plan: Patient with left foot wound and osteomyelitis status post surgical debridement. Wound VAC in place with appropriate drainage. Pain control adequate. Plan: - Continue current management. (4) Hypomagnesemia Current Visit: Yes Status: Acute Assessment and plan: Patient has hypomagnesemia secondary to sepsis and underlying medical conditions. Currents magnesium level 1.3. Patient asymptomatic. Plan: - Replace magnesium and recheck mag level with a.m. labs. (5) Sepsis Current Visit: Yes Status: Acute Assessment and plan: Sepsis currently resolved. Continue current treatments of bacteremia and left foot wound/osteomyelitis. Qualifiers: Sepsis type: sepsis due to unspecified organism Qualified Code(s): A41.9 - Sepsis, unspecified organism (6) Type 2 diabetes mellitus Current Visit: Yes Status: Acute Assessment and plan: Patient is type II diabetic and is currently hyperglycemic with a glucose level of 357 setting of sepsis and wound infection and bacteremia. Plan: - Continue inpatient sliding scale - Restart patient on Levemir at 30 units twice a day - Continue gabapentin for lower extremity peripheral neuropathy. Qualifiers: Diabetes mellitus complication status: with circulatory complication Diabetes mellitus complication detail: with other circulatory complications Diabetes mellitus penitentiary insulin use: with exterminator helper use Qualified Code(s) : E11.59 - Type 2 diabetes mellitus with other circulatory complications; Z79.4 - retirement (current) use of insulin (7) DVT prophylaxis Current Visit: No Status: Acute Assessment and plan: Continue subcutaneous heparin 5000 units every 12 hours - Subjective Interval history: Mr. Noam gaytan 55-year-old male status post left foot debridement of left foot ulcer. Patient currently has wound VAC and with frequent use of his when necessary pain medications. Currently he is sitting up at bedside and feeling nauseous but otherwise in stable condition. He has felt nauseous since this morning after receiving pain medications remains in good humor. He denies any current pain and says his pain is well controlled with the current pain control. He is breathing well and denies any chest pain or palpitations. Patient a bowel movement last evening and denies any abdominal pains. He does discuss that he is a hard stick and it has been difficult to obtain lab draws and would like to know if he could have his PICC line soon. At this time he has no further concerns or questions. - Constitutional Vitals: Temp Pulse Resp BP Pulse Ox 97.8 F 76 16 159/104 95 07/03/16 08:00 07/03/16 08:00 07/03/16 08:00 07/03/16 08:00 07/03/16 08:00 General appearance: Present: cooperative, A&O X 3, pleasant, no acute distress - Head Head exam: Present: atraumatic, normal inspection, normocephalic - Eye Eye exam: Present: PERRL, conjuntiva pink, sclera anicteric - ENT ENT exam: Present: mucous membranes moist Additional comments: Poor dentition. - Respiratory Additional comments: Ackles appreciated bilateral lung bases but all other lung jorge were clear to auscultation with appropriate insight rate expiratory effort. Respiratory rate coincided with respiratory effort. Chest symmetric bilateral - Cardiovascular Cardiovascular exam: Present: RRR, +S1, +S2. Absent: systolic murmur - GI/Abdominal Additional comments: Obese - Extremities Exam Additional comments: Patient had bilateral lower extremity edema with wrapping on his left foot status post wound debridement. Wound VAC in place without any signs of weepage or drainage. Skin on bilateral lower extremities was edematous and taught. No erythema appreciated. - Neurological Exam Neurological exam: Present: alert, oriented X3, no focal deficits. Absent: speech deficit - Psychiatric Psychiatric exam: Present: normal affect, normal mood Internal Medicine: Result - Labs CBC & Chem 7: 07/02/16 06:02 07/02/16 06:02 - ABG Interpretation ABG results: PT/INR, D-dimer PT 15.5 Seconds (9.4-12.1) H 06/28/16 12:08 - VTE Documentation of Mechanical Device: Intermittent pneumatic compression device Consult Discharge Plan - Plan Referrals: Sukumar Garrett MD [Primary Care Provider] - 07/10/16 6:30 pm <Abel Dickson - Last Filed: 07/03/16 17:42> - Assessment and plan (1) Bacteremia due to group B Streptococcus Current Visit: Yes Status: Acute (2) Streptococcus agalactiae infection Current Visit: Yes Status: Acute (3) Osteomyelitis of foot, left, acute Current Visit: Yes Status: Acute Assessment and plan: Related to diabetic foot ulcer. (4) Foot ulcer due to secondary DM Current Visit: No Status: Acute (5) Cellulitis of leg, left Current Visit: Yes Status: Acute - Constitutional Vitals: Temp Pulse Resp BP Pulse Ox 97.6 F 59 18 117/79 95 07/03/16 16:00 07/03/16 16:00 07/03/16 16:00 07/03/16 16:00 07/03/16 16:00 Internal Medicine: Result - Labs CBC & Chem 7: 07/03/16 13:36 07/03/16 13:36 Labs: Short CBC 07/03/16 Range/Units 13:36 WBC 10.8 (4.3-11.1) K/mcL Hgb 8.0 L (12.9-16.9) g/dL Hct 24.6 L (37.5-50.1) % Plt Count 310 (140-400) K/mcL BMP 07/03/16 13:36 Sodium 132 L Potassium 4.3 Chloride 97 L Carbon Dioxide 27 BUN 15 Creatinine 1.02 Glucose 238 H Calcium 9.3 Liver Function 07/03/16 Range/Units 13:36 Total Bilirubin 0.5 (0.2-1.2) mg/dL AST 8 (5-34) Units/L ALT 8 (0-55) Units/L Alkaline Phosphatase 143 H (38-126) Units/L Albumin 1.6 L (3.5-5.0) g/dL - ABG Interpretation ABG results: PT/INR, D-dimer PT 15.5 Seconds (9.4-12.1) H 06/28/16 12:08 - Impressions Impressions Chest X-Ray 07/03/16 15:30 IMPRESSION: No acute cardiac or pulmonary disease. The right arm PICC line tip is poorly seen but extends at least to the upper superior vena cava. D/ / Wilman Rendon MD / Wilman Rendon MD Interpreting Provider: Wilman Rendon MD - Attending Attestation I examined this patient and my medical decision-making was reviewed with the Resident Physician 07/03/16. I agree with the documented findings, disposition and treatment plan as described except to the extent set forth below. Mr. Santacruz is currently admitted due to diabetic foot ulcer with associated osteomyelitis and group B strep bacteremia. He remains high risk due to potential of worsening clinical status with bacteremia and need for multiple antibiotics. Mr. Santacruz is resting on edge of bed. His wound is dressed. No new issues overnight. No CP or SOB. To get PICC line today and then 6 weeks total of IV Vancomycin. Exam Alert. Comfortable Heart reg Dressing intact Lungs no wheeze I/P 1. Acute osteomyelitis of L foot due to diabetic foot ulcer 2. Cellulitis L foot 3. Group B strep bacteremia Further diagnoses and plan as above. Probable discharge tomorrow.
[2016-07-03] MEDS ORDERED: Magnesium Sulfate 1 GM in D5% in Water 100 ML IVPB ONE (10:12)
[2016-07-03] MEDS ORDERED: Insulin DETEMIR 100 UNIT/ML X5UNITS SQ SCH (10:15)
--- NOTE | 2016-07-03 12:27 | Podiatry Progress Note ---
Date of Encounter: 07/03/16 Time of Encounter: 11:00 - Assessment and Plan (1) Cellulitis of leg, left Current Visit: Yes Status: Acute (2) Osteomyelitis of foot, left, acute Current Visit: Yes Status: Acute 1. Erythema and swelling are resolving. Wound vac changed at bedside. 2. Once patient is medically stable patient can be discharged to an ECF. 3. Wound Cultures isolated Strep agalactiae (Group B), receiving IV Vancomycin and Zosyn. 4. Recommend continuation of IV Vancomycin x 6 weeks. Weekly labs and to include a CBC, creatinine, ESR, CRP, Vanc trough. 5, Wound vac to be changed every M-W-. 6. Patient will need a f/u appointment in wound care with Dr. Peters on 07/11/16. (3) Sepsis Current Visit: Yes Status: Acute Qualifiers: Sepsis type: sepsis due to unspecified organism Qualified Code(s): A41.9 - Sepsis, unspecified organism (4) Type 2 diabetes mellitus Current Visit: Yes Status: Acute Qualifiers: Diabetes mellitus complication status: with circulatory complication Diabetes mellitus complication detail: with other circulatory complications Diabetes mellitus regional intermodal truck driver insulin use: with alf use Qualified Code(s) : E11.59 - Type 2 diabetes mellitus with other circulatory complications; Z79.4 - longterm (current) use of insulin Subjective Principal diagnosis: Abscess left foot Interval history: Patient is s/p I & D and debridement to bone cortex for osteomyelitis of the left foot with an application of a wound vac by Dr. Peters on 06/30/16. Patient is sitting up in bed. Patient has a wound vac intact to the left foot. Patient rates left foot pain at a 6 out of 10. He states he is taking pain medication as ordered. No c/o fever, chills, cp, or sob. Objective - Vital Signs Vital Signs: Vital Signs Temp Pulse Resp BP Pulse Ox 07/03/16 08:00 97.8 F 76 16 159/104 95 07/02/16 22:34 98.8 F 82 16 153/85 95 07/02/16 21:10 99.1 F 88 16 153/85 95 07/02/16 20:58 98.6 F 82 16 164/91 07/02/16 16:02 98.4 F 74 16 133/80 98 Intake and Output 07/02/16 07/03/16 07/03/16 23:59 07:59 15:59 Intake Total 700 / 700 90 / 90 480 / 480 Output Total 1400 / 1400 200 / 200 900 / 900 Balance -700 / -700 -110 / -110 -420 / -420 Intake: IV Fluids 350 / 350 90 / 90 Zosyn 3.375 GM In 100 / 100 90 / 90 Dextrose 5% (Minibag+) 100 ML 100 ML @ 25 mls/hr IVPB Q8HR [facility] Rx#: [id number] Vancocin 1,250 MG In 250 / 250 Dextrose 5% 250 ML @ 166. 67 mls/hr IVPB Q12HR [facility] Rx#:[id number] Oral 480 / 480 Blood Product 350 / 350 Rbcs Leuko Poor As-3 2nd 350 / 350 Unit [id number] Output: Urine 1200 / 1200 200 / 200 900 / 900 Wound Drainage 200 / 200 Left Foot 200 / 200 Other: Blood Glucose* 237 332 - Exam Exam: General appearance: alert awake oriented X 3. Calm and pleasant, no acute distress.. Vascular: Pedal pulse audible with doppler, No evidence of cyanosis, pallor or rubor, Edema graded at 3+/4, Skin Temperature warm, capillary refill time is immediate to digits. Neurologic: Sensation diminished with light touch to foot. . Postop Exam: S/P Sutures intact to incision line, no signs of dehiscence. Wound vac intact to the left foot, 50 mls of serous drainage observed to wound vac chamber. Periwound erythema with edema. Macerated edges to the lateral wound border. No pus. No streaking. - Lab Result Diagrams: 07/02/16 06:02 07/02/16 06:02 Labs: Abnormal lab results RBC 2.15 M/mcL (4.19-5.50) L 07/02/16 06:02 Hgb 6.7 g/dL (12.9-16.9) L 07/02/16 06:02 Hct 21.1 % (37.5-50.1) L 07/02/16 06:02 MPV 9.0 fL (9.4-12.4) L 07/02/16 06:02 ESR 99 mm/hr (0-10) H 06/28/16 12:03 PT 15.5 Seconds (9.4-12.1) H 06/28/16 12:08 Sodium 131 mEq/L (136-145) L 07/02/16 06:02 Potassium 4.6 mEq/L (3.5-4.5) H 07/02/16 06:02 Glucose 357 mg/dL (70-99) H 07/02/16 06:02 POC Glucose 332 (58-89) H 07/03/16 08:08 Hemoglobin A1c 7.5 % (-5.6) H 06/30/16 04:14 Magnesium 1.3 mg/dL (1.6-2.6) L 06/30/16 04:14 Iron 21 mcg/dL (65-175) L 06/30/16 04:14 Transferrin 56 mg/dL (174-364) L 06/30/16 04:14 Ferritin 1068 ng/ml (22-275) H 06/30/16 04:14 Albumin 1.4 g/dL (3.5-5.0) L 07/02/16 06:02 Globulin 5.3 g/dL (2.4-3.5) H 07/02/16 06:02 Albumin/Globulin Ratio 0.3 (1.1-2.2) L 07/02/16 06:02 Microbiology, Last 48 Hours 07/02/16 15:45 Blood Culture - Preliminary Peripheral Venipuncture No growth. 07/02/16 15:07 Blood Culture - Preliminary Peripheral Venipuncture No growth. 06/30/16 10:56 Anaerobic Culture - Preliminary Left Foot At this time, no anaerobic growth is present. The culture will be finalized after 5 days of incubation. 06/30/16 10:56 Wound Culture - Final Left Foot Strep agalactiae - (Group B) - VTE Documentation of Mechanical Device: Intermittent pneumatic compression device Consult Discharge Plan - Plan Referrals: Sukumar Garrett MD [Primary Care Provider] - 07/10/16 6:30 pm
[2016-07-03 14:07] LABS: Hematocrit 24.6 % (37.5-50.1); Mean Corpuscular HGB Conc 32.5 g/dL (31.6-35.5); Mean Corpuscular Hemoglobin 31.5 pg (28.0-33.3); Mean Corpuscular Volume 96.9 fL (83.0-100.0); Mean Platelet Volume 9.2 fL (9.4-12.4); Platelet Count 310 K/mcL (140-400); Red Blood Count 2.54 M/mcL (4.19-5.50); Red Cell Distribution Width 13.2 % (11.5-14.5)
[2016-07-03 14:22] LABS: Alanine Aminotransferase 8 Units/L (0-55); Albumin/Globulin Ratio 0.3 (1.1-2.2); Alkaline Phosphatase 143 Units/L (38-126); Aspartate Amino Transferase 8 Units/L (5-34); BUN/Creatinine Ratio 15 (6-26); Bilirubin,Total 0.5 mg/dL (0.2-1.2); Blood Urea Nitrogen 15 mg/dL (8-26); Calcium 9.3 mg/dL (8.6-10.8); Carbon Dioxide 27 mEq/L (19-29); Chloride 97 mEq/L (98-109); Globulin 6.1 g/dL (2.4-3.5); Glucose 238 mg/dL (70-99); Osmolality,Calculated 283 (280-300); Potassium 4.3 mEq/L (3.5-4.5); Sodium 132 mEq/L (136-145); Total Protein 7.7 g/dL (6.0-8.3); eGFR For African Americans > 60 (> 60); eGFR For Non-African Americans > 60 (> 60)
[2016-07-03 14:23] LABS: Albumin 1.6 g/dL (3.5-5.0)
[2016-07-03] MEDS: Insulin DETEMIR 100 UNIT/ML X5UNITS SQ SCH (20:51)
[2016-07-04] MEDS: Piperacillin/Tazobactam 3.375 GM in D5% in Water (Mini-Bag+) 100 ML IVPB SCH ×2 (00:54→08:39)
[2016-07-04] MEDS: *HR* Morphine Immed Rel 30 MG TABLET PO SCH ×4 (00:54→18:11)
[2016-07-04] MEDS: Vancomycin 1,000 MG in D5% in Water 250 ML IVPB SCH ×2 (03:33→16:53)
[2016-07-04] MEDS: *HR* HYDROmorphone (PF) 1 MG/ML SYRINGE IVP PRN ×4 (03:34→16:53)
[2016-07-04] MEDS: *HR* Heparin 5,000 UNIT/ML VIAL SQ SCH (04:55)
[2016-07-04 05:18] LABS: BUN/Creatinine Ratio 20 (6-26); Blood Urea Nitrogen 18 mg/dL (8-26); Calcium 8.8 mg/dL (8.6-10.8); Carbon Dioxide 27 mEq/L (19-29); Chloride 99 mEq/L (98-109); Glucose 127 mg/dL (70-99); Magnesium 1.2 mg/dL (1.6-2.6); Osmolality,Calculated 281 (280-300); Phosphorous 3.6 mg/dL (2.3-4.7); Sodium 134 mEq/L (136-145); eGFR For African Americans > 60 (> 60); eGFR For Non-African Americans > 60 (> 60)
[2016-07-04 05:24] LABS: Basophils % 0.3 %; Eosinophils # 0.4 K/mcL (0.0-0.6); Eosinophils % 3.9 %; Hematocrit 22.2 % (37.5-50.1); Hemoglobin 7.3 g/dL (12.9-16.9); Immature Granulocytes % 1.2 % (0-4); Lymphocytes % 11.4 %; Mean Corpuscular HGB Conc 32.9 g/dL (31.6-35.5); Mean Corpuscular Hemoglobin 31.2 pg (28.0-33.3); Mean Corpuscular Volume 94.9 fL (83.0-100.0); Monocytes # 0.6 K/mcL (0.0-1.3); Monocytes % 6.6 %; Platelet Count 307 K/mcL (140-400); Red Blood Count 2.34 M/mcL (4.19-5.50); Segmented Neutrophils % 76.6 %
[2016-07-04] MEDS: Metoprolol 100 MG TABLET PO SCH (08:38)
[2016-07-04] MEDS: Gabapentin 400 MG CAPSULE PO SCH ×2 (08:38→16:53)
[2016-07-04] MEDS: Furosemide 40 MG TABLET PO SCH (08:38)
[2016-07-04] MEDS: Aspirin Enteric Coated 81 MG Tablet PO SCH (08:38)
[2016-07-04] MEDS: Magnesium Oxide 400 MG TABLET PO SCH (08:38)
[2016-07-04] MEDS: Insulin DETEMIR 100 UNIT/ML X5UNITS SQ SCH (08:39)
[2016-07-04] MEDS: Folic Acid 1 MG TABLET PO SCH (08:39)
[2016-07-04] MEDS: cloNIDine HCl 0.1 MG TABLET PO SCH ×2 (08:39→16:53)
[2016-07-04] MEDS: Insulin LISPRO 300 UNITS/3 ML VIAL SQ SCH ×3 (08:40→16:54)
--- NOTE | 2016-07-04 12:45 | Podiatry Progress Note ---
Date of Encounter: 07/04/16 Time of Encounter: 12:00 - Assessment and Plan (1) Cellulitis of leg, left Current Visit: Yes Status: Acute (2) Osteomyelitis of foot, left, acute Current Visit: Yes Status: Acute 1. Erythema and swelling are resolving. WBC: 9.1 and a febrile. Wound vac intact. Per nurse patient will be going to [facility] today. Upon discharge a wet to dry dressing will be applied until wound vac is placed at [facility]. 2. Wound Cultures isolated Strep agalactiae (Group B), receiving IV Vancomycin and Zosyn. 3. Recommend continuation of IV Vancomycin x 6 weeks. Weekly labs and to include a CBC, creatinine, ESR, CRP, Vanc trough. 4, Wound vac to be changed every --. 5. Patient will need a f/u appointment in wound care with Dr. Peters on 07/11/16. 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 Peters on 06/30/16. Patient is sitting up in bed. Patient has a wound vac intact to the left foot. Patient states he is taking his pain medication as ordered. No c/o fever, chills, cp, or sob. Objective - Vital Signs Vital Signs: Vital Signs Temp Pulse Resp BP Pulse Ox 07/04/16 07:58 98.5 F 62 16 149/78 98 07/04/16 04:43 97.5 F L 64 16 152/30 07/03/16 21:51 97.3 F L 55 15 143/91 97 07/03/16 16:00 97.6 F 59 18 117/79 95 Intake and Output 07/03/16 07/04/1617 23:59 07:59 15:59 Intake Total 520 / 520 90 / 90 480 / 480 Output Total 600 / 600 500 / 500 500 / 500 Balance -80 / -80 -410 / -410 -20 / -20 Intake: IV Fluids 100 / 100 90 / 90 Zosyn 3.375 GM In 100 / 100 90 / 90 Dextrose 5% (Minibag+) 100 ML 100 ML @ 25 mls/hr IVPB Q8HR [facility] Rx#: [id number] Oral 420 / 420 0 / 0 480 / 480 Output: Urine 600 / 600 500 / 500 500 / 500 Other: Meal Breakfast Percent of Meal Consumed 100% Blood Glucose* 130 225 66 - Exam Exam: General appearance: alert awake oriented X 3. Calm and pleasant, no acute distress.. Vascular: Pedal pulse audible with doppler, No evidence of cyanosis, pallor or rubor, Edema graded at 3+/4, Skin Temperature warm, capillary refill time is immediate to digits. Neurologic: Sensation diminished with light touch to foot. . Postop Exam: S/P Sutures intact to incision line, no signs of dehiscence. Wound vac intact to the left foot, 120 mls of serous drainage observed to wound vac chamber. Periwound erythema with edema. Macerated edges to the lateral wound border. No pus. No streaking. - Lab Result Diagrams: 07/04/16 05:01 07/04/16 05:01 Labs: Abnormal lab results RBC 2.34 M/mcL (4.19-5.50) L 07/04/16 05:01 Hgb 7.3 g/dL (12.9-16.9) L 07/04/16 05:01 Hct 22.2 % (37.5-50.1) L 07/04/16 05:01 MPV 9.0 fL (9.4-12.4) L 07/04/16 05:01 ESR 99 mm/hr (0-10) H 06/28/16 12:03 PT 15.5 Seconds (9.4-12.1) H 06/28/16 12:08 Sodium 134 mEq/L (136-145) L 07/04/16 05:01 Glucose 127 mg/dL (70-99) H 07/04/16 05:01 POC Glucose 225 (58-89) H 07/04/16 08:01 Hemoglobin A1c 7.5 % (-5.6) H 06/30/16 04:14 Magnesium 1.2 mg/dL (1.6-2.6) L 07/04/16 05:01 Iron 21 mcg/dL (65-175) L 06/30/16 04:14 Transferrin 56 mg/dL (174-364) L 06/30/16 04:14 Ferritin 1068 ng/ml (22-275) H 06/30/16 04:14 Alkaline Phosphatase 143 Units/L (38-126) H 07/03/16 13:36 Albumin 1.6 g/dL (3.5-5.0) L 07/03/16 13:36 Globulin 6.1 g/dL (2.4-3.5) H 07/03/16 13:36 Albumin/Globulin Ratio 0.3 (1.1-2.2) L 07/03/16 13:36 Vancomycin Trough 22.7 mcg/mL (10-20) H* 07/03/16 17:00 Microbiology, Last 48 Hours 07/02/16 15:45 Blood Culture - Preliminary Peripheral Venipuncture No growth. 07/02/16 15:07 Blood Culture - Preliminary Peripheral Venipuncture No growth. 06/30/16 10:56 Anaerobic Culture - Preliminary Left Foot At this time, no anaerobic growth is present. The culture will be finalized after 5 days of incubation. 06/30/16 10:56 Wound Culture - Final Left Foot Strep agalactiae - (Group B) - VTE Documentation of Mechanical Device: Intermittent pneumatic compression device Consult Discharge Plan - Plan Referrals: Sukumar Garrett MD [Primary Care Provider] - 07/10/16 6:30 pm
--- NOTE | 2016-07-04 14:19 | Discharge Summary ---
<RenaybinuSukumar Clinton - Last Filed: 07/04/16 14:46> Date of Encounter: 07/04/16 Time of Encounter: 14:17 - Discharge Diagnosis (1) Bacteremia due to group B Streptococcus Priority: Primary Status: Acute (2) Cellulitis of leg, left Priority: Primary Status: Acute (3) Osteomyelitis of foot, left, acute Priority: Primary Status: Acute (4) Hypomagnesemia Priority: Secondary Status: Acute (5) Sepsis Priority: Primary Status: Acute Qualifiers: Sepsis type: sepsis due to unspecified organism Qualified Code(s): A41.9 - Sepsis, unspecified organism (6) Type 2 diabetes mellitus Priority: Secondary Status: Acute Qualifiers: Diabetes mellitus complication status: with circulatory complication Diabetes mellitus complication detail: with other circulatory complications Diabetes mellitus medical terminologist insulin use: with [facility] use Qualified Code(s) : E11.59 - Type 2 diabetes mellitus with other circulatory complications; 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 (7) DVT prophylaxis Priority: Secondary Status: Acute - Discharge Medications Prescriptions: Morphine Sulfate 10 mg PO QID PRN #16 tablet PRN Reason: Pain Oxycodone HCl/Acetaminophen [Percocet 10-325 mg Tablet] 1 each PO Q6H PRN #20 tablet PRN Reason: Pain Home Medications: Gabapentin [Neurontin] 800 mg PO TID 12/20/15 [History] Insulin ASPART [Novolog] 2 - 12 unit SQ QID 12/20/15 [History] Insulin DETEMIR [Levemir] 65 unit SQ BID 12/20/15 [History] Metoprolol [Lopressor] 100 mg PO BID 12/20/15 [History] Magnesium Oxide [Mag-Ox] 400 mg PO BID 30 Days 12/23/15 [Rx] Aspirin Enteric Coated [Aspirin EC] 81 mg PO DAILY 01/21/16 [History] Atorvastatin Calcium [Lipitor] 20 mg PO DAILY 01/21/16 [History] Clopidogrel [Plavix] 75 mg PO DAILY 30 Days 01/30/16 [Rx] Ferrous Sulfate 325 mg PO BIDWM 30 Days 01/30/16 [Rx] Folic Acid 1 mg PO DAILY 30 Days 01/30/16 [Rx] CloNIDine HCl 0.1 mg PO TID 04/12/16 [History] Omeprazole [PriLOSEC] 40 mg PO DAILY 04/12/16 [History] Citalopram Hydrobromide [Citalopram HBr] 40 mg PO DAILY 30 Days 04/20/16 [Rx] Amino Acids/Protein Hydrolys [Pro-Stat Awc Liquid] 30 ml PO BID 05/07/16 [ History] Cyclobenzaprine [Flexeril] 10 mg PO TID PRN 05/07/16 [History] Multivitamin [Multi-Day Vitamins] 1 each PO DAILY 05/07/16 [History] Furosemide [Lasix] 40 mg PO DAILY 06/28/16 [History] Morphine Sulfate 10 mg PO QID PRN #16 tablet 07/04/16 [Rx] Oxycodone HCl/Acetaminophen [Percocet 10-325 mg Tablet] 1 each PO Q6H PRN #20 tablet 07/04/16 [Rx] Allergies/Adverse Reactions: Allergies No Known Allergies Allergy (Verified 06/28/16 14:37) Procedures/tests Complete & Pending: Procedures Performed prior 72 hours Category Date Time Status EV echocardiogram Routine Y 07/01/16 18:09 Completed Date of admission: 06/28/16 16:55 Primary care physician: Sukumar Garrett MD Discharging clinician: Sukumar Crane Anticipated date of discharge: 07/04/16 - Patient Status Disposition: Transfer Intermediate Care Fac Condition: Good Functional capacity at discharge: uses cane/walker Overall status at discharge: patient is progressing back to baseline - Discharge Instructions Instructions: Cellulitis (DC), Sepsis (DC) Follow Up With: Sukumar Garrett MD [Primary Care Provider] - 07/10/16 6:30 pm - Diet and Activity Activity: as per physical therapy Diet: diabetic diet, low salt diet Interval History: Admitted with Sepsis, Group B Strep bacteremia, Left foot ulcer/osteomylitis. Hospital course: Mr. Santacruz is a 55 year old male with past medical history of CHF, diabetes, hyperlipidemia, hypertension and renal disease was admitted with sepsis, left foot ulcer superimposed on osteomyelitis. Patient was admitted and underwent sepsis protocol. Patient was seen by podiatry for evaluation and scheduled for left foot wound debridements. Blood cultures were drawn growing group B strep which matched group B strep grown and wound culture. Patient's antibiotics including vancomycin and Zosyn. At the time of admission the patient was tachycardic, febrile with leukocytosis and neutropenia. Pain was controlled during his inpatient stay. On 06/30/2016 patient underwent left foot ulcer debridement and bone debridement. Patient continued to improve clinically and antibiotics were weaned to vancomycin. Repeat blood cultures were negative and PICC line was placed. Patient requires ECF placement for continued IV antibiotic therapy and physical therapy. On 07/04/2016 the patient was deemed stable for discharge to ECF for continued IV antibiotic therapy and follow up outpatient evaluation. Left foot MRI: Large dorsal and lateral soft tissue ulceration at the level of the lateral midfoot. There is a large approximately 8.5 x 4.3 x 3.6 cm fluid collection associated with the medial aspect of the midfoot communicating with the tarsometatarsal articulations and abutting the naviculercuneiform reticulations. Marrow changes are also noted throughout the midfoot. Echocardiogram completed 07/01/2016: Left ventricular ejection fraction was 5055 %, severely dilated left atrium. Severely dilated right atrium. No significant valvular dysfunction. IVC is dilated with less than 50% respiratory variation. - Time Spent with Patient Total time spent providing and/or coordinating discharge services: - Constitutional Vitals: Temp Pulse Resp BP Pulse Ox 98.5 F 62 16 149/78 98 07/04/16 07:58 07/04/16 07:58 07/04/16 07:58 07/04/16 07:58 07/04/16 07:58 General appearance: Present: cooperative, A&O X 3, pleasant, no acute distress - Head Head exam: Present: atraumatic, normocephalic - Eye Eye exam: Present: PERRL, conjuntiva pink, sclera anicteric - ENT ENT exam: Present: mucous membranes moist Additional comments: Poor dentition - Neck Neck exam general surgery: Present: supple, trachea midline - Respiratory Respiratory exam: Present: CTAB - Cardiovascular Cardiovascular exam: Present: RRR, +S1, +S2, systolic murmur - GI/Abdominal GI/Abdominal exam: Present: normal bowel sounds, soft. Absent: tenderness Additional comments: Obese abdomen - Extremities Exam Additional comments: Bilateral LE edema with bandaged left foot with wound drain active. - Neurological Exam Neurological exam: Present: alert, no focal deficits - Psychiatric Psychiatric exam: Present: normal affect, normal mood - Skin Skin exam: Present: warm - VTE Documentation of Mechanical Device: Intermittent pneumatic compression device <Abel Dickson - Last Filed: 07/05/16 15:24> - Discharge Diagnosis (1) Bacteremia due to group B Streptococcus Status: Acute (2) Streptococcus agalactiae infection Priority: Secondary Status: Acute (3) Osteomyelitis of foot, left, acute Priority: Secondary Status: Acute (4) Foot ulcer due to secondary DM Priority: Secondary Status: Acute (5) Cellulitis of leg, left Status: Acute Date of admission: 06/28/16 16:55 Primary care physician: Sukumar Garrett MD Hospital course: Mr. Santacruz is a 55 year old male - Time Spent with Patient Total time spent providing and/or coordinating discharge services: 38min - Constitutional Vitals: Temp Pulse Resp BP Pulse Ox 97.9 F 59 16 112/64 98 07/04/16 15:39 07/04/16 15:39 07/04/16 15:39 07/04/16 15:39 07/04/16 15:39 - Attending Attestation I examined this patient and my medical decision-making was reviewed with the Resident Physician on 07/04/16. I agree with the documented findings, disposition and treatment plan as described except to the extent set forth below. Mr. Santacruz is doing OK. He is ready for d/c to complete IV abx. He is questioning doses of pain medications. Exam Alert. Comfortable Heart reg No wheeze Dressing intact Plan D/C today Pain med adjusted and one day script sent with patient. Further pain med per facility physician.
--- NOTE | 2016-07-04 15:32 | Physician Discharge Referral ---
<Sukumar Crane - Last Filed: 07/04/16 15:29> ExtendedCare Referral Info Transfer To: ECF Provider in Charge after Transfer: PCP Institutional Level of Care: [facility] - - Diagnosis (1) Bacteremia due to group B Streptococcus Priority: Primary Status: Acute (2) Cellulitis of leg, left Priority: Primary Status: Acute (3) Osteomyelitis of foot, left, acute Priority: Primary Status: Acute (4) Hypomagnesemia Priority: Secondary Status: Acute (5) Sepsis Priority: Primary Status: Acute (6) Type 2 diabetes mellitus Priority: Secondary Status: Acute (7) DVT prophylaxis Priority: Secondary Status: Acute - Transfer Medications Prescriptions: Morphine Sulfate 10 mg PO QID PRN #16 tablet PRN Reason: Pain Oxycodone HCl/Acetaminophen [Percocet 10-325 mg Tablet] 1 each PO Q6H PRN #20 tablet PRN Reason: Pain Home Medications: Gabapentin [Neurontin] 800 mg PO TID 12/20/15 [History] Insulin ASPART [Novolog] 2 - 12 unit SQ QID 12/20/15 [History] Insulin DETEMIR [Levemir] 65 unit SQ BID 12/20/15 [History] Metoprolol [Lopressor] 100 mg PO BID 12/20/15 [History] Magnesium Oxide [Mag-Ox] 400 mg PO BID 30 Days 12/23/15 [Rx] Aspirin Enteric Coated [Aspirin EC] 81 mg PO DAILY 01/21/16 [History] Atorvastatin Calcium [Lipitor] 20 mg PO DAILY 01/21/16 [History] Clopidogrel [Plavix] 75 mg PO DAILY 30 Days 01/30/16 [Rx] Ferrous Sulfate 325 mg PO BIDWM 30 Days 01/30/16 [Rx] Folic Acid 1 mg PO DAILY 30 Days 01/30/16 [Rx] CloNIDine HCl 0.1 mg PO TID 04/12/16 [History] Omeprazole [PriLOSEC] 40 mg PO DAILY 04/12/16 [History] Citalopram Hydrobromide [Citalopram HBr] 40 mg PO DAILY 30 Days 04/20/16 [Rx] Amino Acids/Protein Hydrolys [Pro-Stat Awc Liquid] 30 ml PO BID 05/07/16 [ History] Cyclobenzaprine [Flexeril] 10 mg PO TID PRN 11/21/16 [History] Multivitamin [Multi-Day Vitamins] 1 each PO DAILY 05/07/16 [History] Furosemide [Lasix] 40 mg PO DAILY 06/28/16 [History] Morphine Sulfate 10 mg PO QID PRN #16 tablet 07/04/16 [Rx] Oxycodone HCl/Acetaminophen [Percocet 10-325 mg Tablet] 1 each PO Q6H PRN #20 tablet 07/04/16 [Rx] Allergies/Adverse Reactions: Allergies No Known Allergies Allergy (Verified 06/28/16 14:37) - Respiratory Orders Smoking Cessation: Smoking cessation has been advised. For more information, call the [place] [employer] Line at 3-998-QLZK-NOW. - Lab Orders Lab Orders: CBC (4 days after hospital discharge) - Ancillary Orders May use pressure relief devices daily prn, May consult with Dentist, Intake Assessor, Desktop Specialist PRN - Advance Directives Living Will: No Power of Cane Flume Watchman: No Code Status: Full Code - Mobility Orders Ambulate - Rehabiliation Orders Rehab Potential: Good Rehab Orders: Evaluation for Physical Therapy, Evaluation for Occupational Therapy Other: IV antibiotics as prescribed. - Treatments Skin tear care topically daily PRN per policy - Diet Orders No Added Salt (MARU) CERTIFICATION: I certify that the transfer of the above named patient to an Extended Care Facility is necessary for the continuing treatment of the diagnosis listed. The above information is true and accurate reflection of patient's current condition. Confidential - Redisclosure prohibited without a patient's written consent. <Abel Dickson - Last Filed: 07/05/16 15:24> - Diagnosis (1) Bacteremia due to group B Streptococcus Status: Acute (2) Streptococcus agalactiae infection Status: Acute (3) Osteomyelitis of foot, left, acute Status: Acute (4) Foot ulcer due to secondary DM Status: Acute (5) Cellulitis of leg, left Status: Acute - Respiratory Orders Smoking Cessation: Smoking cessation has been advised. For more information, call the [employer] Line at 5-273-LUTN-NOW. CERTIFICATION: I certify that the transfer of the above named patient to an Extended Care Facility is necessary for the continuing treatment of the diagnosis listed. The above information is true and accurate reflection of patient's current condition. Confidential - Redisclosure prohibited without a patient's written consent.
[2016-07-04 15:43] VITALS: BP 112/64
[2016-07-04] MEDS ORDERED: Aminoglycoside Consult 1 EACH MC ONE (18:24)
== END 2016-07-04 18:25 | DRG 854 ==
LOC: EMEROO 10:55 → 2NENU 10:55 → SUATTDRO 16:55 → 2NENU 18:31
PROVIDERS: ADMIT Internal Medicine; ATTEND Internal Medicine

== ENCOUNTER 2016-10-24 19:52 | Observation (INO) ==
[2016-10-24] MEDS ORDERED: *HR* Dextrose 50 % in Water (Syg) 50 ML SYRINGE IVP ONE (20:05)
--- NOTE | 2016-10-24 20:38 | Emergency Department Note ---
Disposition Clinical Impression: Hypoglycemia, Hypokalemia Diabetes Qualifiers: Diabetes mellitus type: other specified (including MICKEY) Diabetes mellitus complication status: with unspecified complications Diabetes mellitus long-term insulin use: unspecified long-term insulin use status Qualified Code(s): E13.8 - Other specified diabetes mellitus with unspecified complications CKD (chronic kidney disease) Qualifiers: Chronic kidney disease stage: unspecified stage Qualified Code(s): N18.9 - Chronic kidney disease, unspecified Disposition: Admitted As Inpatient Condition: Fair General Adult HPI - General Chief complaint: ED Recheck/Abnormal Lab/Rx Stated complaint: hypoglycemia Time Seen by Provider: 10/24/16 19:55 Source: patient, EMS Mode of arrival: EMS Limitations: no limitations Nursing Notes Reviewed: Yes Vital Signs Reviewed: Yes - History of Present Illness HPI Narrative: 55-year-old male history of diabetes presents for evaluation of hypoglycemia. Patient was found unresponsive with a low blood sugar in the 20s. Patient was given by mouth or excuse which improved his blood sugar. Patient states that he takes lots of insulin to help with his blood sugar. States he typically takes 100 units of 7030 in the morning and at night. States that he did take his 100 units in the morning and was adjusting a sliding scale at approximately 1600 afternoon and took 75 units of regular insulin. Patient states that he did not eat anything immediately following that. States that he was walking to get something to eat and felt lightheaded and lay down on the ground. Patient states this happens to him in the past. Denies any sulfonylureas or metformin. Denies any nausea vomiting. Notes he has chronic back pain. No chest pain or shortness of breath. No fevers. No abdominal pain. Pain Scale: 8 - Related Data Home Medications Medication Instructions Recorded Confirmed Gabapentin [Neurontin] 800 mg PO TID 12/20/15 08/08/16 Insulin ASPART [Novolog] 2 - 12 unit SQ QID 12/20/15 08/08/16 Insulin DETEMIR [Levemir] 65 unit SQ BID 12/20/15 08/08/16 Metoprolol [Lopressor] 100 mg PO BID 12/20/15 08/08/16 Aspirin Enteric Coated [Aspirin EC] 81 mg PO DAILY 01/21/16 08/08/16 Atorvastatin Calcium [Lipitor] 20 mg PO DAILY 01/21/16 08/08/16 Omeprazole [PriLOSEC] 40 mg PO DAILY 04/12/16 08/08/16 cloNIDine HCl [CloNIDine HCl] 0.1 mg PO TID 04/12/16 08/08/16 Amino Acids/Protein Hydrolys 30 ml PO BID 05/07/16 08/08/16 [Pro-Stat Awc Liquid] Cyclobenzaprine [Flexeril] 10 mg PO TID PRN 05/07/16 08/08/16 Multivitamin [Multi-Day Vitamins] 1 each PO DAILY 05/07/16 08/08/16 Furosemide [Lasix] 40 mg PO DAILY 06/28/16 08/08/16 Previous Rx's Medication Instructions Recorded Magnesium Oxide [Mag-Ox] 400 mg PO BID 30 Days 12/23/15 Clopidogrel [Plavix] 75 mg PO DAILY 30 Days 01/30/16 Ferrous Sulfate 325 mg PO BIDWM 30 Days 01/30/16 Folic Acid 1 mg PO DAILY 30 Days 01/30/16 Citalopram Hydrobromide 40 mg PO DAILY 30 Days 04/20/16 [Citalopram HBr] Morphine Immed Rel [Morphine 10 mg PO QID PRN #16 tablet 07/04/16 Sulfate] Oxycodone HCl/Acetaminophen 1 each PO Q6H PRN #20 tablet 07/04/16 [Percocet 10-325 mg Tablet] HYDROcodone/Acet 5/325 mg [[place] 1 tab PO Q6H PRN #12 tab 10/09/16 5-325 mg] Allergies Allergy/AdvReac Type Severity Reaction Status Date / Time No Known Allergies Allergy Verified 06/28/16 14:37 All systems ED: reviewed and negative except as stated. Constitutional: Reports: as per HPI Eyes: Reports: as per HPI ENT ED: Reports: as per HPI Cardiovascular: Reports: as per HPI. Denies: chest pain Respiratory: Reports: as per HPI. Denies: cough, dyspnea Gastrointestinal: Reports: as per HPI Genitourinary: Reports: as per HPI. Denies: urgency, dysuria Musculoskeletal: Reports: as per HPI Integumentary: Reports: as per HPI Neurological: Reports: as per HPI, weakness Psychiatric: Reports: as per HPI Endocrine: Reports: as per HPI Hematological/Lymphatic: Reports: as per HPI Allergic/Immunologic: Reports: as per HPI Past Medical History - Past Medical History Medical history: Reports: CHF, diabetes, hyperlipidemia, hypertension Surgical history: Reports: orthopedic, other, other Psychiatric history: Reports: depression - Social History Smoking Status: Never smoker Smokeless Tobacco Status: No Alcohol use: Reports: none Drug use: Reports: none, marijuana Physical Exam - General Limitations: no limitations General appearance: alert, in no apparent distress - Head Head exam: atraumatic, normocephalic, normal inspection - Eye Eye exam: Present: normal appearance, EOMI - ENT ENT exam: normal exam, mucous membranes moist - Neck Neck exam: Present: normal inspection, trachea midline - Chest Chest inspection: Present: normal inspection, symmetric chest wall rise - Respiratory Respiratory exam: Present: normal lung sounds bilaterally. Absent: respiratory distress - Cardiovascular Cardiovascular exam: Present: regular rate, normal rhythm - Abdominal Exam Abdominal exam: Present: soft, Non-Tender - Extremities Exam Extremities exam: Present: normal inspection. Absent: pedal edema - Back Exam Back exam: Present: normal inspection - Neurological Exam Neurological exam: Present: alert, oriented X3 - Skin Skin exam: Present: warm, dry, intact, normal color Course Course Narrative: Patient seen and examined. Patient was noted to have a blood sugar 49. Patient was given an amp of D50. Patient's mentating appropriately. Patient states that he has had issues with blood sugar in the past. Patient will get basic lab work. Patient's tolerating by mouth now denies any nausea or vomiting. Patient was observed in the ER. Disposition pending. - Reevaluation(s) Reevaluation #1: Patient's repeat blood sugar was 58. Patient did receive fluid boluses. Patient's received 1 amp of dextrose as well as been eating in the emergency department. Concerns about this patient's persistent hypo-O glycemia. Patient is a poorly controlled diabetic as evidenced by a CK D and his physical exam with toe amputations. Time: 22:57 Vital Signs Temperature 0 F L 10/24/16 19:58 Pulse Rate 106 10/24/16 19:58 Respiratory Rate 18 10/24/16 19:58 Blood Pressure 138/90 10/24/16 19:58 O2 Sat by Pulse Oximetry 97 10/24/16 19:58 Temperature 0 F L 10/24/16 19:58 Pulse Rate 103 10/24/16 23:02 Respiratory Rate 20 10/24/16 23:02 Blood Pressure 141/93 10/24/16 23:02 O2 Sat by Pulse Oximetry 100 10/24/16 23:02 Oxygen Delivery Oxygen Delivery Room Air Medical Decision Making - MDM Narrative Medical decision making narrative: 55-year-old male history of diabetes presents for evaluation of hypoglycemia. Patient was found by the paramedics with a blood sugar of 23. Patient was given oral sugar. Patient's blood sugar did respond with that. Patient states he typically takes 7030 immediate as well as regular insulin. Patient states sometimes just take other people's insulin medication to help control his sugar. Patient is a poor diabetic. Notes that this happened several times in the past with his low blood sugar. Patient received an amp of D50 after he was still hypoglycemic upon arrival to the ER. Patient was tolerating oral intake during his stay. Patient had basic lab work obtained which showed a CBC leukocytosis likely stress related as the patient does not have any respiratory symptoms. No cough. No overt signs of infection. Patient states he has been having some diarrhea and some loose stools over the past 2-3 days which does correspond to his hydration and his CKD. Patient was given oral potassium supplementation. On reevaluation the patient was still hypoglycemic. Concern of the patient probably took a longer acting insulin. Patient will be admitted to the hospital service for continued blood sugar monitoring. Patient's abdominal exam is not concerning and non-peritoneal. The patient's resting comfortably in the ER. No need for any abdominal injury imaging in the ER. Patient's also been denying any chest pain or short of breath. - Lab Data Lab results reviewed: Yes I reviewed the patient's lab results. Result diagrams: 10/24/16 21:25 10/24/16 21:25 Lab Results 10/24/16 10/24/16 Range/Units 21:25 21:25 WBC 19.2 H (4.3-11.1) K/mcL RBC 3.99 L (4.19-5.50) M/mcL Hgb 12.6 L (12.9-16.9) g/dL Hct 37.0 L (37.5-50.1) % MCV 92.7 (83.0-100.0) fL MCH 31.6 (28.0-33.3) pg MCHC 34.1 (31.6-35.5) g/dL RDW 14.1 (11.5-14.5) % Plt Count 264 (140-400) K/mcL MPV 9.4 (9.4-12.4) fL Seg Neutrophils % 70.0 % Band Neutrophils % 11.0 H (0-4) % Lymphocytes % 13.0 % Monocytes % 2.0 % Eosinophils % 3.0 % Metamyelocytes % 1.0 H (0) % Neutrophils # 15.6 H (1.6-8.9) K/mcL Lymphocytes # 2.5 (0.6-4.6) K/mcL Monocytes # 0.4 (0.0-1.3) K/mcL Eosinophils # 0.6 (0.0-0.6) K/mcL Platelet Estimate Normal (Normal) Sodium 142 (136-145) mEq/L Potassium 3.1 L (3.5-4.5) mEq/L Chloride 106 (98-109) mEq/L Carbon Dioxide 27 (19-29) mEq/L BUN 26 (8-26) mg/dL Creatinine 2.36 H (0.72-1.25) mg/dL Est GFR ( Amer) 35 L (> 60) Est GFR (Non-Af Amer) 29 L (> 60) BUN/Creatinine Ratio 11 (6-26) Glucose 76 (70-99) mg/dL Calculated Osmolality 298 (280-300) Calcium 8.9 (8.6-10.8) mg/dL Phosphorus 6.1 H (2.3-4.7) mg/dL Magnesium 1.6 (1.6-2.6) mg/dL Total Bilirubin 0.2 (0.2-1.2) mg/dL AST 14 (5-34) Units/L ALT 9 (0-55) Units/L Alkaline Phosphatase 96 (38-126) Units/L Serum Total Protein 7.2 (6.0-8.3) g/dL Albumin 2.8 L (3.5-5.0) g/dL Globulin 4.4 H (2.4-3.5) g/dL Albumin/Globulin Ratio 0.6 L (1.1-2.2) Critical Care Time Critical Care Time: Yes Total Critical Care Time: 40 Attestation: Critical care performed: Time is exclusive of separately billable procedures. Time includes: direct patient care, patient reassessment, coordination of patient care, interpretation of data (laboratory data, radiology data, and respiratory data), review of patient's medical records, medical consultation and documentation of patient care. Procedures included in critical care time: Procedures excluded from critical care time: Hiral - Hiral Situation: Demographics Background: Presenting Complaint Assessment: Vital Signs, Course and respsone to treatment, Patient/Family Expectation Recommendation: Barrier(s) to disposition, Recommendation based on pending studies, treatments, or consults Hiral Report Given to: Dr. Talisha Blackman Repor Time: 23:15 Attestation Statement - Attestation Attestation: I, Jose Flores MD, personally evaluated this patient and discussed their management with the resident physician. I reviewed the resident's note and agree with the documented findings, medical decision making, and plan of care. 55-year-old male presents to the emergency department by ambulance for hypoglycemia. Patient is diabetic and on insulin. He states that he went out to his car to get some groceries and he became very weak and faint and lightheaded. He sat down the side of the car and passed out. Apparently his father found him unresponsive and called EMS. Initial blood sugar was 23. Some oral glucose per EMS and blood sugar increased to 60s. On arrival here his fingerstick was back down into the 40s. He received an amp of D50. Patient received juice and food and was observed. His highest blood sugar reading here was just over 100 and then he dropped back down into the 50s. He was placed on a D5 infusion. Patient does admit to having some diarrhea for the past several days. He describes it is just watery and clear. No melena or hematochezia. No abdominal pain or fever. No nausea or vomiting. No chest pain or shortness of breath. On examination patient is a well-developed obese male in no acute distress. He is alert and oriented 3. There is no cyanosis or diaphoresis. Breath sounds are clear and equal bilaterally. Heart regular rate and rhythm. Abdomen soft and nontender with normal bowel sounds. No gross focal neurological deficits. Labs reviewed. Leukocytosis. Hypokalemia. Increased elevation of creatinine. The hospitalist, Dr. Woodall, was consulted and accepted admission of the patient.
[2016-10-24 21:41] LABS: Hemoglobin 12.6 g/dL (12.9-16.9); Mean Corpuscular HGB Conc 34.1 g/dL (31.6-35.5); Mean Corpuscular Hemoglobin 31.6 pg (28.0-33.3); Mean Corpuscular Volume 92.7 fL (83.0-100.0); Mean Platelet Volume 9.4 fL (9.4-12.4); Platelet Count 264 K/mcL (140-400); Red Blood Count 3.99 M/mcL (4.19-5.50); Red Cell Distribution Width 14.1 % (11.5-14.5)
[2016-10-24 21:46] LABS: Albumin 2.8 g/dL (3.5-5.0); Albumin/Globulin Ratio 0.6 (1.1-2.2); Bilirubin,Total 0.2 mg/dL (0.2-1.2); Calcium 8.9 mg/dL (8.6-10.8); Globulin 4.4 g/dL (2.4-3.5); Potassium 3.1 mEq/L (3.5-4.5); Total Protein 7.2 g/dL (6.0-8.3)
[2016-10-24] MEDS ORDERED: 0.9 % Sodium Chloride 1,000 ML IVC ONE (21:53)
[2016-10-24 22:15] LABS: Eosinophils # 0.6 K/mcL (0.0-0.6); Lymphocytes # 2.5 K/mcL (0.6-4.6); Monocytes # 0.4 K/mcL (0.0-1.3); Neutrophils # 15.6 K/mcL (1.6-8.9)
[2016-10-24 22:16] LABS: Platelet Estimate Normal (Normal)
[2016-10-24] MEDS ORDERED: D5% in 0.45% NACL 1,000 ML IVC SCH (23:00)
[2016-10-24 23:10] LABS: Magnesium 1.6 mg/dL (1.6-2.6); Phosphorous 6.1 mg/dL (2.3-4.7)
[2016-10-25] MEDS ORDERED: *HR* Dextrose 50 % in Water (Syg) 50 ML SYRINGE ONE ×3 (00:05→04:56)
[2016-10-25] MEDS: *HR* Dextrose 50 % in Water (Syg) 50 ML SYRINGE IVP ONE ×2 (00:06→10:30)
[2016-10-25] MEDS ORDERED: *HR* Dextrose 50 % in Water (Syg) 50 ML SYRINGE IVP ONE (04:44)
[2016-10-25] MEDS: D10% in Water 500 ML IVC SCH ×2 (05:04→11:05)
[2016-10-25 07:34] LABS: Basophils % 0.5 %; Eosinophils # 0.3 K/mcL (0.0-0.6); Eosinophils % 3.9 %; Hematocrit 31.3 % (37.5-50.1); Hemoglobin 10.9 g/dL (12.9-16.9); Immature Granulocytes % 1.2 % (0-4); Lymphocytes # 2.1 K/mcL (0.6-4.6); Lymphocytes % 26.2 %; Mean Corpuscular HGB Conc 34.8 g/dL (31.6-35.5); Mean Corpuscular Hemoglobin 31.9 pg (28.0-33.3); Mean Corpuscular Volume 91.5 fL (83.0-100.0); Mean Platelet Volume 9.7 fL (9.4-12.4); Monocytes # 0.7 K/mcL (0.0-1.3); Neutrophils # 4.9 K/mcL (1.6-8.9); Platelet Count 229 K/mcL (140-400); Red Blood Count 3.42 M/mcL (4.19-5.50); Red Cell Distribution Width 14.1 % (11.5-14.5); Segmented Neutrophils % 60.2 %
[2016-10-25 07:40] LABS: Prothrombin Time 10.9 Seconds (9.4-12.1)
[2016-10-25 07:43] LABS: Activated Partial Thrombo Time 26.9 Seconds (26.0-36.0)
[2016-10-25 07:45] LABS: Potassium 3.2 mEq/L (3.5-4.5)
[2016-10-25] MEDS ORDERED: Naloxone 0.4 MG/ML INJ IVP PRN (09:41)
[2016-10-25] MEDS ORDERED: *HR* Morphine Immed Rel 30 MG TABLET PO PRN (11:02)
[2016-10-25] MEDS: *HR* OxyCODONE/APAP 10/325 TABLET PO PRN ×3 (11:05→23:10)
[2016-10-25] MEDS: Aspirin Enteric Coated 81 MG Tablet PO SCH (11:06)
[2016-10-25] MEDS ORDERED: Dextrose Gel 15 GM PO PRN ×2 (11:07)
[2016-10-25] MEDS ORDERED: *HR* Dextrose 50 % in Water (Syg) 50 ML SYRINGE IVP PRN (11:07)
[2016-10-25] MEDS ORDERED: D5% in Water 1,000 ML IVC PRN (11:07)
--- NOTE | 2016-10-25 11:07 | Event Note ---
Date of Encounter: 10/25/16 Time of Encounter: 11:03 Mr. Santacruz is a 55 year old male with past medical history of CHF, diabetes, hyperlipidemia, hypertension, CKD and h/o left foot OM was found unresponsive with blood sugar of 20. he was admitted because of persistent hypoglycemia despite dextrose administration. He was seen this morning at the bedside, alert and awake, asking for food. He denies any other complaints, asking for his home medications and pain medications. Fingerstick noted to be in lower 100s this morning, patient takes long-acting insulin along with NovoLog at home. We will continue to monitor fingerstick today and will keep him on low sliding scale for now. Will slowly titrate and add insulin as needed as glucose levels go up. will order a1c now, last a1c on jun was 7.4 he may need adjustment of the dose of insulin before dc.
[2016-10-25] MEDS: Insulin LISPRO 300 UNITS/3 ML VIAL SQ SCH ×2 (11:18→17:13)
[2016-10-25 12:47] LABS: Hemoglobin A1C 9.4 %
[2016-10-25] MEDS ORDERED: Gabapentin 400 MG CAPSULE PO SCH (15:00)
[2016-10-25] MEDS: Gabapentin 300 MG CAPSULE PO SCH ×2 (17:11→20:52)
[2016-10-25] MEDS: cloNIDine HCl 0.1 MG TABLET PO SCH ×2 (17:11→20:52)
[2016-10-25] MEDS: Metoprolol 100 MG TABLET PO SCH (20:52)
[2016-10-25] MEDS ORDERED: Insulin LISPRO 300 UNITS/3 ML VIAL SQ SCH (21:00)
[2016-10-26] MEDS ORDERED: Bupivacaine/Clonidine Syringe 1 EACH SYRINGE ONE (07:59)
[2016-10-26 08:01] VITALS: BP 111/73
[2016-10-26] MEDS: Metoprolol 100 MG TABLET PO SCH (08:26)
[2016-10-26] MEDS: cloNIDine HCl 0.1 MG TABLET PO SCH (08:26)
[2016-10-26] MEDS: Aspirin Enteric Coated 81 MG Tablet PO SCH (08:27)
[2016-10-26] MEDS: Gabapentin 300 MG CAPSULE PO SCH (08:27)
[2016-10-26] MEDS: *HR* OxyCODONE/APAP 10/325 TABLET PO PRN (08:27)
[2016-10-26] MEDS: Insulin LISPRO 300 UNITS/3 ML VIAL SQ SCH (08:27)
--- NOTE | 2016-10-26 08:51 | Discharge Summary ---
Date of Encounter: 10/26/16 Time of Encounter: 08:49 - Discharge Medications Home Medications: Gabapentin [Neurontin] 800 mg PO TID 12/20/15 [History] Insulin ASPART [Novolog] 2 - 12 unit SQ QID 12/20/15 [History] Insulin DETEMIR [Levemir] 35 unit SQ HS 12/20/15 [History] Metoprolol [Lopressor] 100 mg PO BID 12/20/15 [History] Magnesium Oxide [Mag-Ox] 400 mg PO BID 30 Days 12/23/15 [Rx] Aspirin Enteric Coated [Aspirin EC] 81 mg PO DAILY 01/21/16 [History] Atorvastatin Calcium [Lipitor] 20 mg PO DAILY 01/21/16 [History] Clopidogrel [Plavix] 75 mg PO DAILY 30 Days 01/30/16 [Rx] Ferrous Sulfate 325 mg PO BIDWM 30 Days 01/30/16 [Rx] Folic Acid 1 mg PO DAILY 30 Days 01/30/16 [Rx] Omeprazole [PriLOSEC] 40 mg PO DAILY 04/12/16 [History] cloNIDine HCl [CloNIDine HCl] 0.1 mg PO TID 04/12/16 [History] Citalopram Hydrobromide [Citalopram HBr] 40 mg PO DAILY 30 Days 04/20/16 [Rx] Multivitamin [Multi-Day Vitamins] 1 each PO DAILY 05/07/16 [History] Ascorbate Calcium [Vitamin C] 500 mg PO DAILY 10/25/16 [History] Insulin DETEMIR [Levemir] 75 unit SQ QAM 10/25/16 [History] Morphine Sulfate [Arymo ER] 15 mg PO Q6H PRN 10/25/16 [History] Oxycodone HCl/Acetaminophen [Percocet 10-325 mg Tablet] 1 tab PO Q6H PRN [History] Potassium Chloride [K-Tab ER] 20 meq PO DAILY 10/25/16 [History] Allergies/Adverse Reactions: Allergies No Known Allergies Allergy (Verified 06/28/16 14:37) Date of admission: 10/24/16 23:30 Primary care physician: PCP NO Consults: 10/25/16 00:42 Consult to Nutrition [CONS] Routine Comment: Consulting Provider: NUTRITION Reason for Dietary Consult: MST Score Consult to Negative Assembler [CONS] Routine Reason for SW Consult: discharge planning Discharging clinician: Darío Amin Anticipated date of discharge: 10/26/16 - Patient Status Disposition: Home, Self-Care Condition: Fair Functional capacity at discharge: independent ambulation Overall status at discharge: patient is back to baseline - Discharge Instructions Instructions: Diabetic Hypoglycemia (DC), Diabetes Mellitus Type 2 in Adults ( DC), Chronic Hypertension (DC) Follow Up With: Sukumar Garrett MD [Non-Partnered Physician] - 11/05/16 10:30 am (Please follow up as schedule...) - Diet and Activity Activity: resume usual activities as tolerated Diet: diabetic diet Interval History: Mr. Santacruz is a 55 year old male with past medical history of CHF, diabetes, hyperlipidemia, hypertension, CKD and h/o left foot OM was found unresponsive with blood sugar of 20. he was admitted because of persistent hypoglycemia despite dextrose administration. patient takes long-acting insulin along with NovoLog at home, he says that his eyesight is not that good at this time because he does not have glasses. That is how he thinks that he might have mixed up his long-acting with his short -acting insulin. Fingerstick currently is well controlled and no more episodes of hypoglycemia. There is currently no neurological defecit. He is being discharged today in stable condition, his insulin regimen remains the same. He had his pair of Glasses today morning Hospital course: Mr. Santacruz is a 55 year old male Time spent discussing smoking cessation with patient: more than 10 minutes - Time Spent with Patient Total time spent providing and/or coordinating discharge services: Greater than 30 minutes - Constitutional Vitals: Temp Pulse Resp BP Pulse Ox 97.9 F 79 18 111/73 99 10/26/16 08:00 10/26/16 08:00 10/26/16 08:00 10/26/16 08:00 10/26/16 08:00
[2016-10-26] MEDS ORDERED: Folic Acid 1 MG TABLET PO SCH (09:00)
[2016-10-26] MEDS ORDERED: Multivit/Ca/Min/Fe/FA 1 TAB TABLET PO SCH (09:00)
== END 2016-10-26 09:50 | disposition home or self-care (01) ==
LOC: 2ANU 19:52 → EMEROO 19:52 → 2ANU 10-25 00:21
PROVIDERS: ADMIT Internal Medicine; ATTEND Internal Medicine

== ENCOUNTER 2016-12-07 15:30 | Inpatient (IN) ==
[2016-12-07] MEDS ORDERED: *HR* Dextrose 50 % in Water (Syg) 50 ML SYRINGE IVP ONE ×3 (15:40→18:08)
[2016-12-07] MEDS ORDERED: *HR* Dextrose 50 % in Water (Syg) 50 ML SYRINGE ONE (15:41)
--- NOTE | 2016-12-07 15:47 | Emergency Department Note ---
Disposition Clinical Impression: Hypoglycemia Disposition: Admitted As Inpatient Condition: Undetermined Time of Disposition: 17:11 Altered Mental Status HPI - General Chief Complaint: ED Altered Mental Status Stated Complaint: Hypoglycemia Time Seen by Provider: 12/07/16 15:38 Source: patient, EMS Mode of arrival: EMS Limitations: altered mental status Nursing Notes Reviewed: Yes Vital Signs Reviewed: Yes - History of Present Illness HPI Narrative: 55-year-old male with history of type 1 diabetes mellitus insulin-dependent arrives to emergency emergency Department after being found unresponsive by patient's father. EMS was called and the patient was unresponsive with agonal breathing. The patient was immediately given Narcan given the patient's myosis and difficulty breathing. The patient did not quickly arise. The EMS obtain blood glucose and was noted to be in the 20s. The patient was administered one half amp of D50. He baldemar to 40 glucose. He was administered another half an amp of D50. The patient's glucose was in the low 60s upon arrival to the emergency department. The patient began becoming alert in route. He denies taking any other medication and states that he may have overdosed himself by accident of his insulin but he is unsure. The patient denies any suicidal attempt or ideation. He denies taking any medication and has not his or any other medication that he is normally not supposed to take. The patient states that he has not been eating as much today and thinks that may be the cause. The patient glucose was 47 on arrival to the emergency department. He was administered another amp of D50 as well as placed on a D5 drip. Pharmacy staff researched the patient's medications to determine if there is any other agents that would cause hypoglycemia on board. There are no other prescriptions other than Levemir and NovoLog. complaint: altered mental status Onset (ago): unknown Timing confirmed by: family member Pain Severity: severe Consistency of Symptoms: unknown Context: history of similar presentation Associated symptoms: Reports: diaphoresis, weakness Treatments prior to arrival: glucose, IV fluid - Related Data Home Medications Medication Instructions Recorded Confirmed Gabapentin [Neurontin] 800 mg PO TID 12/20/15 12/07/16 Insulin ASPART [Novolog] 2 - 12 unit SQ QID 12/20/15 12/07/16 Insulin DETEMIR [Levemir] 35 unit SQ HS 12/20/15 12/07/16 Metoprolol [Lopressor] 100 mg PO BID 12/20/15 12/07/16 Aspirin Enteric Coated [Aspirin EC] 81 mg PO DAILY 01/21/16 12/07/16 Omeprazole [PriLOSEC] 40 mg PO DAILY 04/12/16 12/07/16 cloNIDine HCl [CloNIDine HCl] 0.1 mg PO TID 04/12/16 12/07/16 Multivitamin [Multi-Day Vitamins] 1 each PO DAILY 05/07/16 12/07/16 Ascorbate Calcium [Vitamin C] 500 mg PO DAILY 10/25/16 12/07/16 Insulin DETEMIR [Levemir] 75 unit SQ QAM 10/25/16 12/07/16 Potassium Chloride [K-Tab ER] 20 meq PO DAILY 10/25/16 12/07/16 Previous Rx's Medication Instructions Recorded Magnesium Oxide [Mag-Ox] 400 mg PO BID 30 Days 12/23/15 Ferrous Sulfate 325 mg PO BIDWM 30 Days 01/30/16 Folic Acid 1 mg PO DAILY 30 Days 01/30/16 Citalopram Hydrobromide 40 mg PO DAILY 30 Days 04/20/16 [Citalopram HBr] Allergies Allergy/AdvReac Type Severity Reaction Status Date / Time No Known Allergies Allergy Verified 06/28/16 14:37 All systems ED: reviewed and negative except as stated. Constitutional: Denies: fever, chills, weakness, weight change Eyes: Denies: eye pain, eye discharge, vision change Cardiovascular: Denies: chest pain, palpitations, dyspnea on exertion, edema, syncope Respiratory: Denies: cough, dyspnea, wheezes, hemoptysis, stridor Gastrointestinal: Denies: abdominal pain, nausea, vomiting, diarrhea, constipation, hematemesis, melena, hematochezia Genitourinary: Denies: urgency, dysuria, frequency, hematuria Musculoskeletal: Denies: back pain, neck pain, arthralgia, myalgia Integumentary: Denies: rash, abrasion, lesions Neurological: Reports: confusion. Denies: headache, weakness, numbness, paresthesias, abnormal gait, vertigo Past Medical History - Past Medical History Attestation: Yes The following information was validated with the patient. Source: patient, old records reviewed Medical history: Reports: CHF, diabetes (Insulin dependent), hyperlipidemia, hypertension Surgical history: Reports: orthopedic, other, other Psychiatric history: Reports: depression - Social History Smoking Status: Never smoker Smokeless Tobacco Status: No Alcohol use: Reports: none Drug use: Reports: opiates Physical Exam - General Limitations: altered mental status, other (Patient is covered in urine.) General appearance: alert, in no apparent distress, other (somnolent) - Head Head exam: atraumatic, normocephalic, normal inspection - Eye Eye exam: Present: normal appearance, PERRL, EOMI - ENT ENT exam: normal exam, normal oropharynx, mucous membranes moist - Neck Neck exam: Present: normal inspection, full ROM, trachea midline - Chest Chest inspection: Present: normal inspection, symmetric chest wall rise - Respiratory Respiratory exam: Present: normal lung sounds bilaterally - Cardiovascular Cardiovascular exam: Present: regular rate, normal rhythm, normal heart sounds - Abdominal Exam Abdominal exam: Present: soft, Non-Tender. Absent: tenderness, distention, guarding, rebound, rigidity - Extremities Exam Extremities exam: Present: normal inspection, full ROM. Absent: tenderness, pedal edema - Back Exam Back exam: Present: normal inspection, full ROM. Absent: tenderness - Neurological Exam Neurological exam: Present: alert, oriented X3 - Skin Skin exam: Present: warm, dry, intact, normal color Course Vital Signs Temperature 97.5 F L 12/07/16 16:01 Pulse Rate 76 12/07/16 16:01 Respiratory Rate 16 12/07/16 16:01 Blood Pressure 121/93 12/07/16 16:01 O2 Sat by Pulse Oximetry 95 12/07/16 16:01 Temperature 97.5 F L 12/07/16 16:01 Pulse Rate 58 12/07/16 17:00 Respiratory Rate 16 12/07/16 17:00 Blood Pressure 135/87 12/07/16 17:00 O2 Sat by Pulse Oximetry 99 12/07/16 17:00 Oxygen Delivery Oxygen Delivery Room Air Altered Mental Status - MDM Narrative Medical decision making narrative: Patient received multiple amps of D50 as well as drinking multiple doses of orange juice. We will place the patient on D5 drip as well as admit the patient to the hospital for hypoglycemia. Accepted by KEITH Douglas. - Lab Data Lab results reviewed: Yes I reviewed the patient's lab results. Lab Results 12/07/16 12/07/16 Range/Units 15:39 16:54 POC Glucose 47 L* 27 L* (58-89) Attestation Statement - Attestation Attestation: I examined this patient and my medical decision-making was reviewed with the Resident Physician. I agree with the documented findings, disposition and treatment plan as described except to the extent set forth below. Persistent hypoglycemia despite 2 amps D50, D5 infusion, significant po intake.
[2016-12-07] MEDS: D5% in 0.9% NACL 1,000 ML IVC SCH (16:53)
[2016-12-07] MEDS ORDERED: *HR* Morphine 2 MG/ML SYRINGE IVP ONE (16:58)
[2016-12-07] MEDS ORDERED: *HR* Dextrose 50 % in Water (Vial) 50 ML VIAL IVP ONE (17:15)
[2016-12-07] MEDS ORDERED: Naloxone 0.4 MG/ML INJ IVP PRN (18:06)
[2016-12-07] MEDS ORDERED: D5% in Water 1,000 ML IVC PRN (18:10)
[2016-12-07] MEDS ORDERED: Dextrose Gel 15 GM PO PRN ×2 (18:10)
--- NOTE | 2016-12-07 18:16 | Internal Med History&Physical ---
<Josep Zarate - Last Filed: 12/07/16 23:33> Date of Encounter: 12/07/16 Internal Medicine - H&P: HPI History of present illness: Mr. Santacruz is a 55 year old male Internal Medicine - H&P: Meds Gabapentin [Neurontin] 800 mg PO TID 12/20/15 [History] Insulin ASPART [Novolog] 2 - 12 unit SQ QID 12/20/15 [History] Insulin DETEMIR [Levemir] 35 unit SQ HS 12/20/15 [History] Metoprolol [Lopressor] 100 mg PO BID 12/20/15 [History] Magnesium Oxide [Mag-Ox] 400 mg PO BID 30 Days 12/23/15 [Rx] Aspirin Enteric Coated [Aspirin EC] 81 mg PO DAILY 01/21/16 [History] Ferrous Sulfate 325 mg PO BIDWM 30 Days 01/30/16 [Rx] Folic Acid 1 mg PO DAILY 30 Days 01/30/16 [Rx] Omeprazole [PriLOSEC] 40 mg PO DAILY 04/12/16 [History] cloNIDine HCl [CloNIDine HCl] 0.1 mg PO TID 04/12/16 [History] Citalopram Hydrobromide [Citalopram HBr] 40 mg PO DAILY 30 Days 04/20/16 [Rx] Multivitamin [Multi-Day Vitamins] 1 each PO DAILY 05/07/16 [History] Ascorbate Calcium [Vitamin C] 500 mg PO DAILY 10/25/16 [History] Insulin DETEMIR [Levemir] 75 unit SQ QAM 10/25/16 [History] Potassium Chloride [K-Tab ER] 20 meq PO DAILY 10/25/16 [History] Allergies No Known Allergies Allergy (Verified 06/28/16 14:37) All Systems PM: A 10-system review of systems was performed and is negative for pertinent findings except as documented above in the HPI. - Constitutional Vitals: Temp Pulse Resp BP Pulse Ox 97.5 F L 50 16 131/78 99 12/07/16 16:01 12/07/16 20:41 12/07/16 18:10 12/07/16 18:10 12/07/16 17:00 Internal Med - H&P Results - Labs CBC & Chem 7: 12/07/16 17:27 12/07/16 17:27 <Stella Paez Last Filed: 12/08/16 00:25> Date of Encounter: 12/08/16 Time of Encounter: 18:14 Assessment and Plan (1) Hypoglycemia Current visit: No Status: Acute Patient was found unresponsive by his father, upon arrival of the squad, patient 's blood sugar was 25. Patient thinks he gave himself too much insulin and then did not eat. He has been monitored in the ED and given D50 x 4 as well as a meal tray and orange juice, but blood sugars remain 20s-50s. D5NS at 125mL/hr Check blood sugar Q1hr Sliding scale correction dose hypoglycemic protocol peer educator and pharmacy educator consulted. (2) Hypertension Current visit: No Status: Chronic Blood pressure has been controlled since arrival. continue home doses of clonidine, metoprolol, Qualifiers: Hypertension type: essential hypertension Qualified Code(s): I10 - Essential (primary) hypertension (3) Type 2 diabetes mellitus Current visit: No Status: Acute Uncontrolled as evidenced by recent Hgb A1c of 9.4% on 10/25/16. He also has hypoglycemic unawareness, as this is his second hospitalization for hypoglycemia in the last few months. Check blood sugars Q1hr. Sliding scale correction dose Q6hr hypoglycemic protocol. peer educator consulted. 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 Santacruz is a 55 year old male with hypertension, hyperlipidemia, diabetes, CHF , chronic kidney disease, sent to the emergency department today after being found unresponsive at home by his father. When the squad arrived and checked his blood sugar and it was 25, he was given D50 and blood sugar improved to 47. His been monitored in the ER and given multiple rounds of D50, but blood sugar remains 20s to 50s. Patient is alert and oriented at this time. He he denies any current lightheadedness, headache, chest pain, palpitations, shortness of breath. He reports occasional nausea. Denies any abdominal pain, diarrhea, fever, chills or sweats. He was started on IV fluids of D5 at 125 an hour. On exam, patient is alert and oriented, in no acute distress. Heart has regular rate and rhythm, lungs are clear bilaterally to auscultation. Left lower extremity is edematous as compared to right, but patient reports this is his baseline. Past Med Surg Social Fam HX - Past Medical History Medical history: CHF, diabetes (Insulin dependent), hyperlipidemia, hypertension Psychiatric history: depression - Past Surgical History Surgical History: orthopedic, other, other - Social History Smoking Status: Never smoker Smokeless Tobacco Status: No Alcohol use: none Drug use: opiates - Family History Father Family Member Ethnicity: Non- Living Status: Still Living Hx Family Cardiac Disorders: Yes (pacer) Hx Family Endocrine Disorder: Yes (diabetis) All Systems PM: A 10-system review of systems was performed and is negative for pertinent findings except as documented above in the HPI. - Constitutional Constitutional: no chills, no fever(s), no night sweats - EENT Eyes: no change in vision, no discharge, no pain, no photophobia Ears: no ear discharge, no ear pain, no tinnitus Nose, mouth and throat: no dysphagia, no nasal discharge, no neck pain, no sore throat - Cardiovascular Cardiovascular ROS IM: no chest pain, no diaphoresis, no dyspnea, no lightheadedness, no palpitations, no syncope - Respiratory Respiratory: no cough, no dyspnea, no wheezing, no excessive phlegm production - Gastrointestinal Gastrointestinal: nausea, no abdominal pain, no diarrhea, no hematemesis, no hematochezia, no melena, no vomiting - Musculoskeletal Musculoskeletal ROS IM: no numbness, no tingling - Integumentary Integumentary IM: no rash, no unusual bruising - Neurological Neurological ROS: no confusion, no convulsions, no focal weakness, no numbness, no tingling, no tremor(s) - Hematologic/Lymphatic Hematologic/Lymphatic: no easy bruising - Constitutional Vitals: Temp Pulse Resp BP Pulse Ox 97.5 F L 58 16 135/87 99 12/07/16 16:01 12/07/16 17:00 12/07/16 17:00 12/07/16 17:00 12/07/16 17:00 General appearance: Present: A&O X 3, pleasant, no acute distress - Head Head exam: Present: atraumatic, normocephalic - Eye Eye exam: Present: PERRL, conjuntiva pink, sclera anicteric Pupils: Present: PERRL - Neck Neck exam general surgery: Present: supple, trachea midline. Absent: lymphadenopathy - Respiratory Respiratory exam: Present: CTAB. Absent: accessory muscle use, rales, rhonchi, wheezes - Cardiovascular Cardiovascular exam: Present: RRR, +S1, +S2. Absent: diastolic murmur, gallop, rubs, systolic murmur - GI/Abdominal GI/Abdominal exam: Present: normal bowel sounds, soft, no peritoneal signs. Absent: distended, tenderness - Extremities Exam Extremities exam: Present: pedal edema (LLE > RLE ), warm, radial pulses palpable and symetrical. Absent: calf tenderness, cyanotic Additional comments: multiple toe amputations bilaterally - Neurological Exam Neurological exam: Present: CN II-XII intact, oriented X3, no focal deficits. Absent: facial droop, speech deficit - Skin Skin exam: Present: dry, intact Internal Med - H&P Results - Labs CBC & Chem 7: 12/07/16 17:27 12/07/16 17:27
[2016-12-07 19:01] LABS: Basophils % 0.4 %; Eosinophils # 0.1 K/mcL (0.0-0.6); Eosinophils % 1.5 %; Hemoglobin 10.3 g/dL (12.9-16.9); Immature Granulocytes % 0.3 % (0-4); Lymphocytes # 0.7 K/mcL (0.6-4.6); Lymphocytes % 8.1 %; Mean Corpuscular HGB Conc 33.2 g/dL (31.6-35.5); Mean Corpuscular Hemoglobin 31.7 pg (28.0-33.3); Mean Corpuscular Volume 95.4 fL (83.0-100.0); Mean Platelet Volume 10.8 fL (9.4-12.4); Monocytes # 0.5 K/mcL (0.0-1.3); Monocytes % 5.5 %; Neutrophils # 7.7 K/mcL (1.6-8.9); Platelet Count 271 K/mcL (140-400); Red Blood Count 3.25 M/mcL (4.19-5.50); Red Cell Distribution Width 14.1 % (11.5-14.5); Segmented Neutrophils % 84.2 %
--- NOTE | 2016-12-07 19:47 | Event Note ---
Date of Encounter: 12/07/16 Time of Encounter: 19:45 I examined this patient and my medical decision-making was reviewed with Ms. Paez. I agree with the documented findings, disposition and treatment plan as described except to the extent set forth below. 55 yo CM with DM-2 on insulin was brought to the emergency room by EMS after he was found to have altered mental status. This is not reversed with Narcan. His sugar was found to be in the 20s. He was given D50 and brought to the emergency room. In the emergency room, he has been given further dextrose and started on D5. Currently, he is complaining of 8/10 pain in his lower back in the midline which is his chronic pain and is requesting that he be given his home medications of extended release morphine 15 mg 3 times a day and 10 mg oxycodone every 6 hours as needed for pain. On exam, patient appears to be in moderate distress. Clear breath sounds bilaterally. Labs reviewed. Continue to monitor blood sugars every 1 hour. If they are stable, will change to every 4 hours checks. Diabetic diet. Hold basal insulin. Sliding scale insulin will be continued. Continue D5 water at 125 upper hour. Resume home pain medications. Patient states that his blood sugar went low because he did not eat anything. He states that he usually takes his basal insulin in the morning. He states that he lives with bachelors and usually they do not look much food and they do not have food. Will request social staff worker consult to try to arrange Meals on Wheels or alternative services so the patient can be fed regularly. PAM Reyes
[2016-12-07] MEDS: cloNIDine HCl 0.1 MG TABLET PO SCH (20:12)
[2016-12-07] MEDS: Magnesium Oxide 400 MG TABLET PO SCH (20:12)
[2016-12-07] MEDS ORDERED: Gabapentin 400 MG CAPSULE PO SCH (21:00)
[2016-12-07 21:18] LABS: BUN/Creatinine Ratio 15 (6-26); Blood Urea Nitrogen 16 mg/dL (8-26); Calcium 9.2 mg/dL (8.6-10.8); Carbon Dioxide 26 mEq/L (19-29); Chloride 105 mEq/L (98-109); Osmolality,Calculated 292 (280-300); Potassium 3.1 mEq/L (3.5-4.5); Sodium 142 mEq/L (136-145); eGFR For African Americans > 60 (> 60); eGFR For Non-African Americans > 60 (> 60)
[2016-12-07 22:16] LABS: Glucose 40 mg/dL (70-99)
[2016-12-07] MEDS: *HR* Dextrose 50 % in Water (Syg) 50 ML SYRINGE IVP PRN ×2 (22:19→23:15)
[2016-12-07] MEDS: *HR* Morphine Sulfate SR (12 HR) 15 MG TABLET.ER PO SCH (23:14)
[2016-12-07] MEDS: *HR* Heparin 5,000 UNIT/ML VIAL SQ SCH (23:15)
[2016-12-08] MEDS: D5% in 0.9% NACL 1,000 ML IVC SCH ×2 (02:44→08:52)
[2016-12-08] MEDS: *HR* Dextrose 50 % in Water (Syg) 50 ML SYRINGE IVP PRN ×2 (03:43→08:51)
[2016-12-08] MEDS: *HR* OxyCODONE/APAP 10/325 TABLET PO PRN ×2 (05:00→16:39)
[2016-12-08] MEDS ORDERED: Dextrose Gel 15 GM PO PRN ×2 (06:50→06:51)
[2016-12-08 07:28] LABS: Calcium 8.2 mg/dL (8.6-10.8); Potassium 3.1 mEq/L (3.5-4.5)
[2016-12-08 08:33] LABS: Basophils % 0.3 %; Eosinophils # 0.4 K/mcL (0.0-0.6); Eosinophils % 6.2 %; Hematocrit 27.6 % (37.5-50.1); Hemoglobin 9.2 g/dL (12.9-16.9); Immature Granulocytes % 0.3 % (0-4); Lymphocytes # 2.1 K/mcL (0.6-4.6); Lymphocytes % 33.6 %; Mean Corpuscular HGB Conc 33.3 g/dL (31.6-35.5); Mean Corpuscular Hemoglobin 32.7 pg (28.0-33.3); Mean Corpuscular Volume 98.2 fL (83.0-100.0); Mean Platelet Volume 11.1 fL (9.4-12.4); Monocytes # 0.6 K/mcL (0.0-1.3); Monocytes % 9.4 %; Neutrophils # 3.1 K/mcL (1.6-8.9); Platelet Count 194 K/mcL (140-400); Red Blood Count 2.81 M/mcL (4.19-5.50); Red Cell Distribution Width 14.3 % (11.5-14.5); Segmented Neutrophils % 50.2 %
[2016-12-08] MEDS: Magnesium Oxide 400 MG TABLET PO SCH ×2 (08:50→20:08)
[2016-12-08] MEDS: Gabapentin 300 MG CAPSULE PO SCH ×3 (08:51→20:08)
[2016-12-08] MEDS: *HR* Heparin 5,000 UNIT/ML VIAL SQ SCH ×2 (08:51→15:12)
[2016-12-08] MEDS: Aspirin Enteric Coated 81 MG Tablet PO SCH (08:52)
[2016-12-08] MEDS: *HR* Morphine Sulfate SR (12 HR) 15 MG TABLET.ER PO SCH ×2 (08:52→15:12)
--- NOTE | 2016-12-08 09:40 | Internal Med Progress Note ---
Date of Encounter: 12/08/16 Time of Encounter: 09:38 - Assessment and plan (1) Hypoglycemia Current Visit: No Status: Acute Assessment and plan: Likely secondary to unintentional medication overdose will continue to closely monitor fingerstick. Accuchecks q1h continue D5W 0.9NS IVF hold insulin therapy ss insulin as needed f/u C-peptide level, HbA1c will continue to closely monitor (2) JOCELINE (acute kidney injury) Current Visit: No Status: Acute Assessment and plan: renal function worsened from previous day however noted to have history of CKD can be secondary to hypotension will closely monitor BP Hold nephrotoxic agents at this time (3) Diabetes mellitus with neuropathy Current Visit: No Status: Chronic Assessment and plan: continue to hold all long acting insulin therapy accuchecks q1h until BG within stable range will change to ACHS once BG have been stablized Gabapentin dose renally dosed Qualifiers: Diabetes mellitus type: type 2 Diabetes mellitus snf insulin use: unspecified snf insulin use status Qualified Code(s): E11.40 - Type 2 diabetes mellitus with diabetic neuropathy, unspecified (4) DVT prophylaxis Current Visit: No Status: Acute Assessment and plan: Heparin SQ (5) Hypertension Current Visit: No Status: Chronic Assessment and plan: initially noted to be hypotensive Current BP is 148/77 will restart home dose of Clonidine decrease Metoprolol to 50mg PO BID will closely monitor BP Qualifiers: Hypertension type: essential hypertension Qualified Code(s): I10 - Essential (primary) hypertension (6) Hypokalemia Current Visit: No Status: Acute Assessment and plan: K supplemented continue to monitor electrolytes and replace as needed (7) Chronic back pain Current Visit: Yes Status: Acute Assessment and plan: continue home meds Qualifiers: Back pain location: low back pain Back pain laterality: unspecified Sciatica presence: unspecified whether sciatica present Qualified Code(s): M54.5 - Low back pain; G89.29 - Other chronic pain - Subjective Interval history: Patient seen and examined at bedside. Resting in bed and continues to have low BG despite maintaining adequate PO intake. Pt states about a day ago he took his scheduled dose of levemir (200units) at home and since yesterday he has been feeling ill with significant decrease in PO intake. He was also noted to be hypotensive upon arrival due to which his home meds were placed on hold. At this time he is eating breakfast and reports of the chronic back pain. Denies taking excessive insulin however is unsure at the same time. Reports of chronic back pain and is on opioid therapy. - Constitutional Vitals: Temp Pulse Resp BP Pulse Ox 97.7 F 59 16 108/61 98 12/08/16 07:30 12/08/16 07:30 12/08/16 07:30 12/08/16 07:30 12/08/16 07:30 General appearance: Present: A&O X 3, morbidly obese, pleasant, no acute distress - Head Head exam: Present: atraumatic, normocephalic - Eye Eye exam: Present: conjuntiva pink, sclera anicteric - Respiratory Respiratory exam: Present: CTAB. Absent: respiratory distress, stridor, wheezes - Cardiovascular Cardiovascular exam: Present: RRR, +S1, +S2. Absent: diastolic murmur, gallop, rubs, systolic murmur - GI/Abdominal GI/Abdominal exam: Present: distended (obese), normal bowel sounds, soft. Absent: tenderness - Extremities Exam Extremities exam: Present: pedal edema (s/p amputation of great toe bilaterally- hx of diabetic foot ulcers/osteomyelitis, b/l chronic venous stasis ), warm, radial pulses palpable and symetrical. Absent: calf tenderness - Neurological Exam Neurological exam: Present: alert, oriented X3 - Psychiatric Psychiatric exam: Present: normal affect, normal mood Internal Medicine: Result - Labs CBC & Chem 7: 12/08/16 06:29 12/08/16 06:29 Labs: Short CBC 12/08/16 Range/Units 06:29 WBC 6.3 (4.3-11.1) K/mcL Hgb 9.2 L (12.9-16.9) g/dL Hct 27.6 L (37.5-50.1) % Plt Count 194 (140-400) K/mcL Neutrophils # 3.1 (1.6-8.9) K/mcL BMP 12/08/16 06:29 Sodium 139 Potassium 3.1 L Chloride 102 Carbon Dioxide 26 BUN 21 Creatinine 1.58 H Glucose 48 L Calcium 8.2 L Consult Discharge Plan - Plan Referrals: Sukumar Garrett MD [Primary Care Provider] -
[2016-12-08] MEDS ORDERED: D5% in 0.9% NACL 1,000 ML IVC SCH (09:50)
[2016-12-08] MEDS: cloNIDine HCl 0.1 MG TABLET PO SCH ×3 (09:51→20:09)
[2016-12-09] MEDS: *HR* Morphine Sulfate SR (12 HR) 15 MG TABLET.ER PO SCH ×3 (00:19→15:29)
[2016-12-09] MEDS: *HR* Heparin 5,000 UNIT/ML VIAL SQ SCH ×3 (00:19→15:29)
[2016-12-09] MEDS: amLODIPine 5 MG TABLET PO SCH ×2 (01:36→08:31)
[2016-12-09] MEDS: *HR* OxyCODONE/APAP 10/325 TABLET PO PRN ×3 (01:40→18:18)
[2016-12-09 05:05] LABS: Basophils % 0.6 %; Eosinophils # 0.5 K/mcL (0.0-0.6); Eosinophils % 6.6 %; Hematocrit 30.3 % (37.5-50.1); Hemoglobin 10.3 g/dL (12.9-16.9); Immature Granulocytes % 0.3 % (0-4); Lymphocytes # 1.7 K/mcL (0.6-4.6); Lymphocytes % 24.1 %; Mean Corpuscular Hemoglobin 32.4 pg (28.0-33.3); Mean Corpuscular Volume 95.3 fL (83.0-100.0); Mean Platelet Volume 10.4 fL (9.4-12.4); Monocytes # 0.5 K/mcL (0.0-1.3); Monocytes % 7.3 %; Neutrophils # 4.2 K/mcL (1.6-8.9); Platelet Count 209 K/mcL (140-400); Red Blood Count 3.18 M/mcL (4.19-5.50); Red Cell Distribution Width 13.5 % (11.5-14.5); Segmented Neutrophils % 61.1 %
[2016-12-09 05:19] LABS: Hemoglobin A1C 6.6 %
[2016-12-09 05:25] LABS: BUN/Creatinine Ratio 14 (6-26); Blood Urea Nitrogen 19 mg/dL (8-26); Calcium 8.6 mg/dL (8.6-10.8); Carbon Dioxide 23 mEq/L (19-29); Chloride 107 mEq/L (98-109); Glucose 207 mg/dL (70-99); Magnesium 1.2 mg/dL (1.6-2.6); Osmolality,Calculated 300 (280-300); Phosphorous 1.9 mg/dL (2.3-4.7); Potassium 3.7 mEq/L (3.5-4.5); Sodium 141 mEq/L (136-145); eGFR For African Americans > 60 (> 60); eGFR For Non-African Americans 56 (> 60)
[2016-12-09] MEDS ORDERED: *HR* Labetalol 20 MG/4 ML SYRINGE IVP ONE (06:13)
[2016-12-09] MEDS ORDERED: Magnesium Sulfate 2 GM in D5% in Water 100 ML IVPB ONE (07:44)
[2016-12-09] MEDS ORDERED: Sodium Phosphate 30 MMOL in D5% in Water 100 ML IVPB ONE (07:44)
[2016-12-09] MEDS: cloNIDine HCl 0.1 MG TABLET PO SCH ×3 (08:31→19:41)
[2016-12-09] MEDS: Magnesium Oxide 400 MG TABLET PO SCH ×2 (08:31→19:40)
[2016-12-09] MEDS: Aspirin Enteric Coated 81 MG Tablet PO SCH (08:31)
[2016-12-09] MEDS: Gabapentin 300 MG CAPSULE PO SCH ×3 (08:31→19:40)
--- NOTE | 2016-12-09 09:31 | Electrocardiograph Report ---
[address] [address] Test Date: 2016-12-07 Pat Name: Jeanmarie Santacruz Department: 103 Room: 2N10 Gender: M [employer] Driver: : 1960 Requested By: Sukumar Laughlin Order Number: [id number] Reading MD: Audra Gimenez Measurements Intervals [employer] Rate: 60 P: 50 IN: 122 QRS: 5 QRSD: 97 T: 43 QT: 431 QTc: 432 Interpretive Statements SINUS RHYTHM Electronically Signed On 12-09-2016 9:29:30 EDT by Audra Gimenez
[2016-12-09] MEDS ORDERED: Dextrose Gel 15 GM PO PRN ×2 (11:02)
[2016-12-09] MEDS ORDERED: *HR* Dextrose 50 % in Water (Syg) 50 ML SYRINGE IVP PRN (11:02)
[2016-12-09] MEDS ORDERED: D5% in Water 1,000 ML IVC PRN (11:02)
--- NOTE | 2016-12-09 11:05 | Internal Med Progress Note ---
Date of Encounter: 12/09/16 Time of Encounter: 11:03 - Assessment and plan (1) Hypoglycemia Current Visit: No Status: Acute Assessment and plan: Likely secondary to unintentional medication overdose will continue to closely monitor fingerstick. Resolved at this time IVF discontinued pt tolerating PO intake well Noted to have significant decrease in A1C and will need readjustment of home insulin dose upon discharge started sliding scale insulin algorithm will adjust insulin therapy as per requirements continue to monitor FS and BG f/u C-peptide level will continue to closely monitor (2) JOCELINE (acute kidney injury) Current Visit: No Status: Acute Assessment and plan: renal function improving from previous day however noted to have history of CKD Hold nephrotoxic agents at this time (3) Diabetes mellitus with neuropathy Current Visit: No Status: Chronic Assessment and plan: continue to hold all long acting insulin therapy started sliding scale insulin therapy further plan as listed above Qualifiers: Diabetes mellitus type: type 2 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: unspecified half-way insulin use status Qualified Code(s): E11.40 - Type 2 diabetes mellitus with diabetic neuropathy, unspecified (4) DVT prophylaxis Current Visit: No Status: Acute Assessment and plan: Heparin SQ (5) Hypertension Current Visit: No Status: Resolved Assessment and plan: Increased to home dose of Metoprolol 100mg PO BID continue Clonidine BP within acceptable range at this time continue to closely monitor Qualifiers: Hypertension type: essential hypertension Qualified Code(s): I10 - Essential (primary) hypertension (6) Chronic back pain Current Visit: Yes Status: Acute Assessment and plan: continue home meds Qualifiers: Back pain location: low back pain Back pain laterality: unspecified Sciatica presence: unspecified whether sciatica present Qualified Code(s): M54.5 - Low back pain; G89.29 - Other chronic pain (7) Electrolyte abnormality Current Visit: Yes Status: Acute Assessment and plan: Hypomagnesemia and hypophosphatemia Mg and Phos supplemented continue to monitor electrolytes and replace as needed - Subjective Interval history: Patient seen and examined at bedside. Resting in chair and reports of feeling better compared to previous day. Noted to have significant drop in HbA1c from October. Hypoglycemia resolved at this time. Noted to be hypertensive overnight due to which he received a dose of Amlodipine. His home dose of BB was reduced yesterday as he was hypotensie during the day. Will restart home dose of BB at this time. - Constitutional Vitals: Temp Pulse Resp BP Pulse Ox 98.0 F 67 18 140/87 98 12/09/16 07:31 12/09/16 09:51 12/09/16 07:31 12/09/16 09:51 12/09/16 07:31 General appearance: Present: A&O X 3, morbidly obese, pleasant, no acute distress - Head Head exam: Present: atraumatic, normocephalic - Eye Eye exam: Present: normal appearance, conjuntiva pink, sclera anicteric - Respiratory Respiratory exam: Present: CTAB. Absent: accessory muscle use, rales, rhonchi, wheezes - Cardiovascular Cardiovascular exam: Present: RRR, +S1, +S2. Absent: diastolic murmur, gallop, rubs, systolic murmur - GI/Abdominal GI/Abdominal exam: Present: normal bowel sounds, soft, no peritoneal signs. Absent: distended, tenderness - Extremities Exam Extremities exam: Present: warm, radial pulses palpable and symetrical Additional comments: (s/p amputation of great toe bilaterally-hx of diabetic foot ulcers/ osteomyelitis, b/l chronic venous stasis ) - Neurological Exam Neurological exam: Present: alert, oriented X3 - Psychiatric Psychiatric exam: Present: normal affect, normal mood Internal Medicine: Result - Labs CBC & Chem 7: 12/09/16 04:45 12/09/16 04:45 Labs: Short CBC 12/09/16 Range/Units 04:45 WBC 6.9 (4.3-11.1) K/mcL Hgb 10.3 L (12.9-16.9) g/dL Hct 30.3 L (37.5-50.1) % Plt Count 209 (140-400) K/mcL Neutrophils # 4.2 (1.6-8.9) K/mcL BMP 12/09/16 04:45 Sodium 141 Potassium 3.7 Chloride 107 Carbon Dioxide 23 BUN 19 Creatinine 1.34 H Glucose 207 H Calcium 8.6 Consult Discharge Plan - Plan Referrals: Sukumar Garrett MD [Primary Care Provider] -
[2016-12-09] MEDS: Insulin LISPRO 300 UNITS/3 ML VIAL SQ SCH ×2 (12:26→17:23)
[2016-12-09] MEDS: Metoprolol 100 MG TABLET PO SCH (19:41)
[2016-12-09] MEDS ORDERED: Insulin LISPRO 300 UNITS/3 ML VIAL SQ SCH (21:00)
[2016-12-10] MEDS: *HR* Heparin 5,000 UNIT/ML VIAL SQ SCH ×2 (00:07→08:08)
[2016-12-10] MEDS: *HR* Morphine Sulfate SR (12 HR) 15 MG TABLET.ER PO SCH ×2 (00:07→08:09)
[2016-12-10] MEDS: *HR* OxyCODONE/APAP 10/325 TABLET PO PRN ×2 (02:21→09:32)
[2016-12-10 04:06] LABS: Basophils % 0.4 %; Eosinophils # 0.5 K/mcL (0.0-0.6); Eosinophils % 6.6 %; Hematocrit 29.1 % (37.5-50.1); Hemoglobin 10.1 g/dL (12.9-16.9); Immature Granulocytes % 0.7 % (0-4); Lymphocytes # 1.5 K/mcL (0.6-4.6); Mean Corpuscular HGB Conc 34.7 g/dL (31.6-35.5); Mean Corpuscular Hemoglobin 32.9 pg (28.0-33.3); Mean Corpuscular Volume 94.8 fL (83.0-100.0); Mean Platelet Volume 10.7 fL (9.4-12.4); Monocytes # 0.6 K/mcL (0.0-1.3); Monocytes % 8.7 %; Neutrophils # 4.5 K/mcL (1.6-8.9); Platelet Count 210 K/mcL (140-400); Red Blood Count 3.07 M/mcL (4.19-5.50); Red Cell Distribution Width 13.6 % (11.5-14.5); Segmented Neutrophils % 62.6 %
[2016-12-10 04:20] LABS: BUN/Creatinine Ratio 18 (6-26); Blood Urea Nitrogen 18 mg/dL (8-26); Calcium 8.7 mg/dL (8.6-10.8); Carbon Dioxide 26 mEq/L (19-29); Chloride 105 mEq/L (98-109); Glucose 213 mg/dL (70-99); Magnesium 1.4 mg/dL (1.6-2.6); Osmolality,Calculated 294 (280-300); Phosphorous 2.2 mg/dL (2.3-4.7); Sodium 138 mEq/L (136-145); eGFR For African Americans > 60 (> 60); eGFR For Non-African Americans > 60 (> 60)
[2016-12-10] MEDS ORDERED: Sodium Phosphate 30 MMOL in D5% in Water 100 ML IVPB ONE (07:52)
[2016-12-10] MEDS ORDERED: Magnesium Sulfate 2 GM in D5% in Water 100 ML IVPB ONE (07:52)
[2016-12-10] MEDS: cloNIDine HCl 0.1 MG TABLET PO SCH (08:08)
[2016-12-10] MEDS: Metoprolol 100 MG TABLET PO SCH (08:09)
[2016-12-10] MEDS: Aspirin Enteric Coated 81 MG Tablet PO SCH (08:09)
[2016-12-10] MEDS: Magnesium Oxide 400 MG TABLET PO SCH (08:09)
[2016-12-10] MEDS: Gabapentin 300 MG CAPSULE PO SCH (08:09)
[2016-12-10] MEDS: Insulin LISPRO 300 UNITS/3 ML VIAL SQ SCH (08:12)
[2016-12-10] MEDS ORDERED: amLODIPine 5 MG TABLET PO SCH (10:30)
--- NOTE | 2016-12-10 11:03 | Internal Med Progress Note ---
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 group home insulin use status Qualified Code(s): E11.40 - Type 2 diabetes mellitus with diabetic neuropathy, unspecified (4) DVT prophylaxis Current Visit: No Status: Acute (5) Hypertension Current Visit: No Status: Resolved Qualifiers: Hypertension type: essential hypertension Qualified Code(s): I10 - Essential (primary) hypertension (6) Chronic back pain Current Visit: Yes Status: Acute Qualifiers: Back pain location: low back pain Back pain laterality: unspecified Sciatica presence: unspecified whether sciatica present Qualified Code(s): M54.5 - Low back pain; G89.29 - Other chronic pain (7) Electrolyte abnormality Current Visit: Yes Status: Acute - Subjective Interval history: Patient seen and examined at bedside. Resting in chair and reports of feeling better compared to previous day. Noted to have significant drop in HbA1c from October. Hypoglycemia resolved at this time. Noted to be hypertensive overnight due to which he received a dose of Amlodipine. His home dose of BB was reduced yesterday as he was hypotensie during the day. Will restart home dose of BB at this time. - Constitutional Vitals: Temp Pulse Resp BP Pulse Ox 98.3 F 68 16 176/96 95 12/10/16 08:15 12/10/16 08:15 12/10/16 08:15 12/10/16 08:15 12/10/16 08:15 General appearance: Present: A&O X 3, morbidly obese, pleasant, no acute distress Internal Medicine: Result - Labs CBC & Chem 7: 12/10/16 03:31 12/10/16 03:31 Labs: Short CBC 12/10/16 Range/Units 03:31 WBC 7.2 (4.3-11.1) K/mcL Hgb 10.1 L (12.9-16.9) g/dL Hct 29.1 L (37.5-50.1) % Plt Count 210 (140-400) K/mcL Neutrophils # 4.5 (1.6-8.9) K/mcL BMP 12/10/16 03:31 Sodium 138 Potassium 4.0 Chloride 105 Carbon Dioxide 26 BUN 18 Creatinine 1.00 Glucose 213 H Calcium 8.7 Consult Discharge Plan - Plan Referrals: Sukumar Garrett MD [Primary Care Provider] - 12/11/16 2:45 pm (IF YOU ARE NOT ABLE TO MAKE YOUR APPOINTMENT PLEASE CALL [phone] AT YOUR EARLIEST [employer]VIENCE. THANKS YOU ALSO HAVE AN APPOINTMENT ON 12-21-16 @ 1400)
--- NOTE | 2016-12-10 11:07 | Discharge Summary ---
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 Qualified Code(s): E11.40 - Type 2 diabetes mellitus with diabetic neuropathy, unspecified (4) DVT prophylaxis Priority: Secondary Status: Acute (5) Hypertension Priority: Secondary Status: Chronic Qualifiers: Hypertension type: essential hypertension Qualified Code(s): I10 - Essential (primary) hypertension (6) Chronic back pain Priority: Secondary Status: Chronic Qualifiers: Back pain location: low back pain Back pain laterality: unspecified Sciatica presence: unspecified whether sciatica present Qualified Code(s): M54.5 - Low back pain; G89.29 - Other chronic pain (7) Electrolyte abnormality Priority: Secondary Status: Acute - Discharge Medications Prescriptions: RX: amLODIPine [Norvasc] 5 mg PO DAILY #30 tablet Insulin DETEMIR [Levemir Flextouch] 10 unit SQ DAILY #5 insuln.pen Home Medications: RX: Gabapentin [Neurontin] 800 mg PO TID 12/20/15 [History] RX: Insulin ASPART [Novolog] 2 - 12 unit SQ QID 12/20/15 [History] RX: Metoprolol [Lopressor] 100 mg PO BID 12/20/15 [History] RX: Magnesium Oxide [Mag-Ox] 400 mg PO BID 30 Days 12/23/15 [Rx] RX: Aspirin Enteric Coated [Aspirin EC] 81 mg PO DAILY 01/21/16 [History] RX: Ferrous Sulfate 325 mg PO BIDWM 30 Days 01/30/16 [Rx] RX: Folic Acid 1 mg PO DAILY 30 Days 01/30/16 [Rx] RX: Omeprazole [PriLOSEC] 40 mg PO DAILY 04/12/16 [History] RX: cloNIDine HCl [CloNIDine HCl] 0.1 mg PO TID 04/12/16 [History] RX: Citalopram Hydrobromide [Citalopram HBr] 40 mg PO DAILY 30 Days 04/20/16 [Rx ] RX: Multivitamin [Multi-Day Vitamins] 1 each PO DAILY 05/07/16 [History] RX: Ascorbate Calcium [Vitamin C] 500 mg PO DAILY 10/25/16 [History] RX: Potassium Chloride [K-Tab ER] 20 meq PO DAILY 10/25/16 [History] Insulin DETEMIR [Levemir Flextouch] 10 unit SQ DAILY #5 insuln.pen 12/10/16 [Rx] RX: amLODIPine [Norvasc] 5 mg PO DAILY #30 tablet 12/10/16 [Rx] Allergies/Adverse Reactions: Allergies No Known Allergies Allergy (Verified 06/28/16 14:37) Procedures/tests Complete & Pending: Procedures Performed prior 72 hours Category Date Time Status EV venous imaging LE BI Routine Y 12/08/16 20:37 Completed Date of admission: 12/07/16 18:41 Primary care physician: Sukumar Garrett MD Consults: 12/07/16 19:48 Consult to Mid Level Clinician [CONS] Routine Reason for SW Consult: May need Meals on Wheels etc Discharging clinician: Stephanie Dean Anticipated date of discharge: 12/10/16 - Patient Status Disposition: Home, Self-Care Condition: Good Functional capacity at discharge: independent ambulation Overall status at discharge: patient is back to baseline - Discharge Instructions Follow Up With: Sukumar Garrett MD [Primary Care Provider] - 12/11/16 2:45 pm (IF YOU ARE NOT ABLE TO MAKE YOUR APPOINTMENT PLEASE CALL [phone] AT YOUR EARLIEST CONVIENCE. THANKS YOU ALSO HAVE AN APPOINTMENT ON 12-21-16 @ 1400) Additional Instructions: Please follow up with your primary care physician tomorrow (12/11/16). Closely monitor your blood glucose at home. Your home dose of Levemir has been decreased to 10units in the morning and 5units at bedtime. Please take this medication as prescribed. Continue to closely monitor your blood glucose at home. Accuchecks at fasting, premeals, bedtime. Take sliding scale insulin as per your accucheck readings. Keep a log of these readings and take them with your to your primary care physician's appointment. Your HbA1C was noted to be 6.6 during this hospitalization, inform your primary care physician of this change. You were noted to have elevated BP due to which Amlodipine 5mg once a day was added to your home medications. Closely monitor your BP at home. Hold BP medications if your SBP is less than 120. Hold Metoprolol if your HR is less than 60. Keep log of your daily BP readings. Resume all other medications as prescribed by your primary care physician. - Diet and Activity Activity: resume usual activities as tolerated Diet: diabetic diet, low salt diet Hospital course: Mr. Santacruz is a 56 year old male with PMH of HTN, HLD, DM, CHF, CKD, morbid obesity who was admitted for change in mental status secondary to severe hypoglycemia. Patient was noted to have low blood glucose levels despite dextrose therapy due to which he was admitted for further evaluation. His mental status returned to baseline with improvement in his BG. He was noted to have a drop in A1C and was using high doses of insulin therapy at home. Extensive diabetic education was provided. All long acting insulin therapy was placed on hold and patient was started on sliding scale insulin algorithm. Patient's BG was within acceptable range despite being off basal insulin and requiring minimal insulin coverage. He was also noted to be hypertensive due to which Amlodipine was added to his regimen. He is currently stable for discharge and will follow up with his PCP tomorrow. His home basal insulin has been decreased to Levemir 10units qAM and Levemir 5units qPM with sliding scale coverage throughout the day. Pt demonstrates understanding of his diagnosis and agrees with the discharge care and plan. - Time Spent with Patient Total time spent providing and/or coordinating discharge services: Greater than 30 minutes - Constitutional Vitals: Temp Pulse Resp BP Pulse Ox 98.3 F 68 16 176/96 95 12/10/16 08:15 12/10/16 08:15 12/10/16 08:15 12/10/16 08:15 12/10/16 08:15 General appearance: Present: A&O X 3, morbidly obese, pleasant, no acute distress - Head Head exam: Present: atraumatic, normocephalic - Eye Eye exam: Present: normal appearance, conjuntiva pink, sclera anicteric - Respiratory Respiratory exam: Present: CTAB. Absent: respiratory distress, wheezes - Cardiovascular Cardiovascular exam: Present: RRR, +S1, +S2. Absent: diastolic murmur, gallop, rubs, systolic murmur - GI/Abdominal GI/Abdominal exam: Present: normal bowel sounds, soft. Absent: tenderness - Extremities Exam Extremities exam: Present: warm, radial pulses palpable and symetrical. Absent : calf tenderness Additional comments: (s/p amputation of great toe bilaterally-hx of diabetic foot ulcers/ osteomyelitis, b/l chronic venous stasis ) - Neurological Exam Neurological exam: Present: alert, oriented X3 - Psychiatric Psychiatric exam: Present: normal affect, normal mood
[2016-12-10 11:25] VITALS: BP 165/88
--- NOTE | 2016-12-10 15:40 | Venous Imaging Report ---
LE Venous Duplex Patient Name:Jeanmarei Santacruz Order Number:[id number] Procedure Date:12/08/2016 Date:1960Age:56 yrs Gender:Male Location:[facility] Room #: 2N10 Home Care Music Therapist:Francesca Nuno Referring MD:Josep Zarate MD web production manager:None Reading MD:Alan Dumas MD Primary Indications:Leg swelling Secondary Indications: Impressions: Normal bilateral lower extremity deep and superficial venous exam. Findings Prior Study: No prior study available for comparison. Lower Extremity Venous Duplex Side Vein Compress Spontaneous Flow Augment Diameter (cm) Depth (cm) Right Distal Iliac Normal Yes Phasic Yes Right Common Femoral Normal Yes Phasic Yes Right Superficial Femoral Normal Yes Phasic Yes Right Popliteal Normal Yes Phasic Yes Right Posterior Tibial Normal Yes Phasic Yes Right Peroneal Normal Yes Phasic Yes Right Saphenofemoral Junction Normal Yes Phasic Yes Right Great Saphenous Normal Yes Phasic Yes Right Lesser Saphenous Normal Yes Phasic Yes Left Distal Iliac Normal Yes Phasic Yes Left Common Femoral Normal Yes Phasic Yes Left Superficial Femoral Normal Yes Phasic Yes Left Popliteal Normal Yes Phasic Yes Left Posterior Tibial Normal Yes Phasic Yes Left Peroneal Normal Yes Phasic Yes Left Saphenofemoral Junction Normal Yes Phasic Yes Left Great Saphenous Normal Yes Phasic Yes Left Lesser Saphenous Normal Yes Phasic Yes Updated by Alan Dumas MD on 12/10/2016 3:35:04 PM electronically signed on 12/10/2016 3:35:26 PM with status of Final
== END 2016-12-10 16:27 | disposition home or self-care (01) | DRG 918 ==
LOC: 2NENU 15:30 → EMEROO 15:30 → 2NNU 17:58 → SUATTDRO 18:41
PROVIDERS: ADMIT Nurse Practitioner Family; ATTEND Internal Medicine

== ENCOUNTER 2017-01-03 15:38 | Inpatient (IN) ==
[2017-01-03] MEDS ORDERED: 0.9 % Sodium Chloride 1,000 ML IVC ONE (15:48)
--- NOTE | 2017-01-03 15:50 | Emergency Department Note ---
Disposition Clinical Impression: Altered awareness, transient, Hyperglycemia, Hypokalemia Cellulitis Qualifiers: Site of cellulitis: extremity Site of cellulitis of extremity: lower extremity Laterality: right Qualified Code(s): L03.115 - Cellulitis of right lower limb Disposition: Admitted As Inpatient Condition: Fair Time of Disposition: 17:49 General Adult HPI - General Chief complaint: ED General Medical Stated complaint: "someone called the squad" Time Seen by Provider: 01/03/17 15:45 Source: patient, EMS Mode of arrival: EMS Limitations: no limitations Nursing Notes Reviewed: Yes Vital Signs Reviewed: Yes - History of Present Illness HPI Narrative: 56-year-old male history of insulin-dependent diabetes mellitus, hypertension, and congestive heart failure presents to the ED for altered mental status. Patient presents via EMS. EMS reports his house was filthy with over 30 cats. Initially he was uncooperative and hypoxic and would not state his name or birthday. Upon my evaluation on arrival patient is alert and oriented to person place and time, he can state his name and his birthday. States this glucose level was over 500 today when he gave himself insulin and felt weird. He typically take 100 U basal insulin morning and night with sliding scale for meals. This morning he gave himself 100U and forgot to eat, instead he went to lay on his bed. He denies any fall, headache, neck pain. Denies any pain at this time. Denies any shortness of breath, nausea or vomiting. Denies any fever, recent illness or cough. He does not take any oral antidiabetic medications only insulin. Denies any drug or alcohol use. He lives with his father. Patient states he worked outside this morning but was found upstairs in the house. He has window AC and unfortunately his central air-conditioning is out due to a bad compressor. States the house is not very hot given the temperature outside. He has multiple scratches on his body as well as his legs , states he just got a new kitten that he is breaking in. There is slightly erythema to his right lower leg concerning for possible infection. States last time he felt similar to this he had fluid on the lungs from his congestive heart failure. Since patient is a poor historian will work up for possible DKA , EKG, troponin, BNP, as well as lactate. Patient is tachycardic 113. Will also get blood cultures and give a liter of fluids. - Related Data Home Medications Medication Instructions Recorded Confirmed Gabapentin [Neurontin] 800 mg PO TID 12/20/15 01/03/17 Insulin ASPART [Novolog] 0 unit SQ ACHS 12/20/15 01/03/17 Metoprolol [Lopressor] 100 mg PO BID 12/20/15 01/03/17 Aspirin Enteric Coated [Aspirin EC] 81 mg PO DAILY 01/21/16 01/03/17 Omeprazole [PriLOSEC] 40 mg PO DAILY 04/12/16 01/03/17 cloNIDine HCl [CloNIDine HCl] 0.1 mg PO TID 04/12/16 01/03/17 Multivitamin [Multi-Day Vitamins] 1 each PO DAILY 05/07/16 01/03/17 Ascorbate Calcium [Vitamin C] 500 mg PO DAILY 10/25/16 01/03/17 Potassium Chloride [K-Tab ER] 20 meq PO DAILY 10/25/16 01/03/17 Atorvastatin Calcium [Lipitor] 20 mg PO HS 01/03/17 01/03/17 Cyclobenzaprine [Flexeril] 10 mg PO HS 01/03/17 01/03/17 Insulin DETEMIR [Levemir Flextouch] 100 unit SQ BID 01/03/17 01/03/17 Morphine Immed Rel [Morphine 15 mg PO TID 01/03/17 01/03/17 Sulfate] OxyCODONE/APAP 10/325 [Percocet 1 each PO Q6HR PRN 01/03/17 01/03/17 10/325 MG] Previous Rx's Medication Instructions Recorded Magnesium Oxide [Mag-Ox] 400 mg PO BID 30 Days 12/23/15 Ferrous Sulfate 325 mg PO BIDWM 30 Days 01/30/16 Folic Acid 1 mg PO DAILY 30 Days 01/30/16 Citalopram Hydrobromide 40 mg PO DAILY 30 Days 04/20/16 [Citalopram HBr] amLODIPine [Norvasc] 5 mg PO DAILY #30 tablet 12/10/16 Allergies Allergy/AdvReac Type Severity Reaction Status Date / Time No Known Allergies Allergy Verified 12/21/16 23:35 All systems ED: reviewed and negative except as stated. Review of Systems: As Per HPI Constitutional: Reports: weakness. Denies: fever, chills Cardiovascular: Denies: chest pain, dyspnea on exertion Respiratory: Denies: cough, dyspnea Gastrointestinal: Denies: abdominal pain, nausea, vomiting Musculoskeletal: Reports: back pain (Chronic). Denies: neck pain Integumentary: Reports: rash, abrasion Neurological: Reports: weakness, confusion. Denies: headache Psychiatric: Denies: anxiety, depression Past Medical History - Past Medical History Attestation: Yes The following information was validated with the patient. Source: patient Medical history: Reports: CHF, diabetes, hyperlipidemia, hypertension Surgical history: Reports: orthopedic, other, other Psychiatric history: Reports: depression - Social History Smoking Status: Never smoker Smokeless Tobacco Status: No Alcohol use: Reports: none Drug use: Reports: opiates Physical Exam - General Limitations: no limitations General appearance: alert, in no apparent distress, obese - Head Head exam: atraumatic, normocephalic, normal inspection - Eye Eye exam: Present: normal appearance, PERRL, EOMI. Absent: scleral icterus - ENT ENT exam: normal exam, normal oropharynx, mucous membranes moist - Expanded ENT Exam External ear exam: Present: normal external inspection Nose exam: negative: rhinorrhea Teeth exam: Present: dental caries, other (poor dentition) - Neck Neck exam: Present: normal inspection, full ROM, trachea midline. Absent: tenderness, meningismus - Expanded Neck Exam Neck exam focused ED: Absent: midline tenderness - Chest Chest inspection: Present: normal inspection, symmetric chest wall rise. Absent : tenderness - Respiratory Respiratory exam: Present: normal lung sounds bilaterally. Absent: respiratory distress, wheezes - Cardiovascular Cardiovascular exam: Present: regular rate, normal rhythm, tachycardia, normal heart sounds - Abdominal Exam Abdominal exam: Present: soft (obese), Non-Tender, normal bowel sounds. Absent : tenderness, distention, guarding, rebound, rigidity - Extremities Exam Extremities exam: Present: normal inspection, full ROM, normal capillary refill , pedal edema (+1 pitting symmetrical), other (left leg deformity from prior surgeries with metal plates, erythema to the right lower leg anterior gastelum, bilateral big toe amputation). Absent: tenderness, calf tenderness - Neurological Exam Neurological exam: Present: alert, oriented X3, CN II-XII intact - Expanded Neurological Exam Patient oriented to: Present: person, place, time Speech: Present: fluid speech Cranial nerves: EOM function (II, III, IV, ): Normal, facial sensation (V): Normal, facial palsy (VII): Normal, gag reflex (IX): Normal, spinal accessory function (XI): Normal, tongue deviation (XII): Normal Motor strength - LUE: 5/5 Motor strength - RUE: 5/5 Motor strength - LLE: 5/5 Motor strength - RLE: 5/5 Upper motor neuron exam: fernando neglect: Absent bilaterally Sensory exam upper extremity: light touch: Normal Sensory exam lower extremity: light touch: Normal - Psychiatric Psychiatric exam: Present: normal affect, normal mood - Skin Skin exam: Present: warm, dry, normal color, erythema (right lower leg, anterior gastelum), other (multiple scratches across his chest, abdomen, and extremities of various healing stages, reports this is from his kittens) - Expanded Skin Exam Description: Present: erythematous. Absent: fluctuant, indurated 1 - circumferential erythema, nonfluctant, blanches, no induration, Course - Reevaluation(s) Reevaluation #1: EKG is unremarkable. Chest x-rays normal. Patients hypokalemia 2.7 he has a elevation in his creatinine 1.5 it appears he has a history of CKD. His blood sugar is to 11. His initial was 140. His other labs are otherwise unremarkable. Due to his social situation he may need admission for IV antibiotics for his cellulitis of the right lower leg as well as diabetic education and better sugar control. Patient is in agreement with this plan. Impression is cellulitis, altered mental status resolved, hypokalemia. Patient' s potassium repleted with 40 mEq. IV vancomycin ordered with pharmacy to dose Time: 17:38 - Consultations Consultation #1: Spoke with on-call hospitalist vijay Nicholas to admit for cellulitis, hyperglycemia, altered mental status resolved, hypokalemia. No further orders at this time Time: 17:47 Vital Signs Temperature 99.2 F 01/03/17 15:42 Pulse Rate 103 01/03/17 15:42 Respiratory Rate 16 01/03/17 15:42 Blood Pressure 113/73 01/03/17 15:42 O2 Sat by Pulse Oximetry 96 01/03/17 15:42 Temperature 99.2 F 01/03/17 15:42 Pulse Rate 104 01/03/17 15:42 Respiratory Rate 16 01/03/17 15:42 Blood Pressure 113/73 01/03/17 15:42 O2 Sat by Pulse Oximetry 96 01/03/17 15:42 Oxygen Delivery Oxygen Delivery Nasal Cannula Medical Decision Making - Medical Records Medical records reviewed: Yes I reviewed the patient's medical records. - Lab Data Lab results reviewed: Yes I reviewed the patient's lab results. Result diagrams: 01/03/17 16:00 01/03/17 16:00 Lab Results 01/03/17 01/03/17 01/03/17 Range/Units 16:00 16:00 16:20 WBC 8.5 (4.3-11.1) K/mcL RBC 3.20 L (4.19-5.50) M/mcL Hgb 10.4 L (12.9-16.9) g/dL Hct 29.5 L (37.5-50.1) % MCV 92.2 (83.0-100.0) fL MCH 32.5 (28.0-33.3) pg MCHC 35.3 (31.6-35.5) g/dL RDW 12.8 (11.5-14.5) % Plt Count 184 (140-400) K/mcL MPV 11.1 (9.4-12.4) fL Immature Gran % 0.5 (0-4) % Seg Neutrophils % 75.3 % Lymphocytes % 14.3 % Monocytes % 7.3 % Eosinophils % 2.1 % Basophils % 0.5 % Neutrophils # 6.4 (1.6-8.9) K/mcL Lymphocytes # 1.2 (0.6-4.6) K/mcL Monocytes # 0.6 (0.0-1.3) K/mcL Eosinophils # 0.2 (0.0-0.6) K/mcL Basophils # 0.0 (0.0-0.2) K/mcL Sodium 136 (136-145) mEq/L Potassium 2.7 L (3.5-4.5) mEq/L Chloride 99 (98-109) mEq/L Carbon Dioxide 25 (19-29) mEq/L BUN 27 H (8-26) mg/dL Creatinine 1.51 H (0.72-1.25) mg/dL Est GFR ( Amer) 59 L (> 60) Est GFR (Non-Af Amer) 48 L (> 60) BUN/Creatinine Ratio 18 (6-26) Glucose 211 H (70-99) mg/dL Calculated Osmolality 293 (280-300) Lactic Acid 1.0 (0.5-2.2) mmol/L Calcium 8.4 L (8.6-10.8) mg/dL Creatine Kinase 72 (30-200) Units/L Troponin I (0-0.03) ng/mL B-Natriuretic Peptide (0-100) pg/mL Beta-Hydroxybutyric Acd 0.22 (0.02-0.27) mmol/L 01/03/17 01/03/17 Range/Units 16:20 16:20 WBC (4.3-11.1) K/mcL RBC (4.19-5.50) M/mcL Hgb (12.9-16.9) g/dL Hct (37.5-50.1) % MCV (83.0-100.0) fL MCH (28.0-33.3) pg MCHC (31.6-35.5) g/dL RDW (11.5-14.5) % Plt Count (140-400) K/mcL MPV (9.4-12.4) fL Immature Gran % (0-4) % Seg Neutrophils % % Lymphocytes % % Monocytes % % Eosinophils % % Basophils % % Neutrophils # (1.6-8.9) K/mcL Lymphocytes # (0.6-4.6) K/mcL Monocytes # (0.0-1.3) K/mcL Eosinophils # (0.0-0.6) K/mcL Basophils # (0.0-0.2) K/mcL Sodium (136-145) mEq/L Potassium (3.5-4.5) mEq/L Chloride (98-109) mEq/L Carbon Dioxide (19-29) mEq/L BUN (8-26) mg/dL Creatinine (0.72-1.25) mg/dL Est GFR ( Amer) (> 60) Est GFR (Non-Af Amer) (> 60) BUN/Creatinine Ratio (6-26) Glucose (70-99) mg/dL Calculated Osmolality (280-300) Lactic Acid (0.5-2.2) mmol/L Calcium (8.6-10.8) mg/dL Creatine Kinase (30-200) Units/L Troponin I 0.01 (0-0.03) ng/mL B-Natriuretic Peptide 41 (0-100) pg/mL Beta-Hydroxybutyric Acd (0.02-0.27) mmol/L - Radiology Data Radiology results reviewed: Yes I reviewed the patient's radiology results. Chest X-Ray 01/03/17 15:45 IMPRESSION: No acute process. D/ / Luiz De La Cruz MD / Luiz De La Cruz MD Interpreting Provider: Luiz De La Cruz MD - EKG Data EKG #1 EKG attestation: Yes I reviewed and interpreted this EKG. EKG results narrative: EKG performed 1542 sinus tachycardia 113 beats per minutes, poor R-R wave progression, nonspecific T wave flattening, no ST elevations or depression. Intervals are within normal limits IL interval 164 QRS 98 QT QTC 335 402. Compared to old EKG performed 12/07/2016 shows poor R-R wave progression. This is an abnormal EKG. No acute ischemic changes consistent with STEMI pattern. Attestation Statement - Attestation Attestation: I personally interviewed and examined this patient and my medical decision- making was reviewed with the Resident Physician, Dr. astudillo. I agree with the documented findings, disposition and treatment plan as described except to the extent set forth below. Patient is a 56-year-old white male, history of insulin-dependent diabetes mellitus who is brought into us by EMS today for a reported mental status change. Patient arrives awake and alert, oriented 4 with a GCS of 15 on arrival. Patient reports that his father must have called 911 and watches him closely with his diabetes as he sometimes has some confusion or mental status changes if his sugars get very low. Patient states his sugar this morning was up over 500 and he gave himself 100 units of insulin and Lasix and went to sleep also did not eat anything following insulin administration. Patient was reportedly with decreased level of responsiveness to his dad not answering questions so 911 was called. Patient states he ate something and then was feeling better and on arrival here denies any symptoms at this time but just reports that his sugars have been very labile. Patient also presents with a right lower extremity that is erythematous and swollen with 2+ pitting edema and mild tenderness to palpation. Patient denies any fevers or chills, no pain to the right lower extremity with ambulation and no history of trauma or falls. Patient's also covered from head to toe with abrasions, he reports that this is due to some new kittens. EMS reports that there over 30 Household in the household was extremely dirty and concerning as they are reporting this to Adult Protective Services. I agree with patient's physical exam as documented. Signs are stable on arrival and patient with appropriate mental status with no focal neurologic deficits. On arrival he had a mild tachycardia otherwise normal vital signs. Patient was placed on awake overnight monitor continuous pulse ox IV saline while was established and labs were drawn and sent and IV fluid bolus was initiated with reported elevated blood sugars. Accu-Chek per EMS was 184. Patient had an EKG obtained which was negative for any ischemic findings. Patient also had blood cultures drawn with concerns for right lower extremity cellulitis. Patient did have some hyperglycemia on lab evaluation but no evidence of DKA at this time. Patient's white count was within normal limits. His potassium was low at 2.7 replacement was initiated in the ED with continued cardiac monitoring. Patient concerning because he appears very unreliable in regards to his diabetes management and compliant with medications. We initiated IV antibiotics for what appears to be a right lower extremity cellulitis secondary to numerous Abrasions. Bartonella titers were drawn and sent. Patient will be admitted for hyperglycemia with history of diabetes as well as right lower extremity cellulitis. Patient's vital signs remained stable throughout ED course.
[2017-01-03 16:31] LABS: Basophils % 0.5 %; Eosinophils # 0.2 K/mcL (0.0-0.6); Eosinophils % 2.1 %; Hematocrit 29.5 % (37.5-50.1); Hemoglobin 10.4 g/dL (12.9-16.9); Immature Granulocytes % 0.5 % (0-4); Lymphocytes # 1.2 K/mcL (0.6-4.6); Lymphocytes % 14.3 %; Mean Corpuscular HGB Conc 35.3 g/dL (31.6-35.5); Mean Corpuscular Hemoglobin 32.5 pg (28.0-33.3); Mean Corpuscular Volume 92.2 fL (83.0-100.0); Mean Platelet Volume 11.1 fL (9.4-12.4); Monocytes # 0.6 K/mcL (0.0-1.3); Monocytes % 7.3 %; Neutrophils # 6.4 K/mcL (1.6-8.9); Platelet Count 184 K/mcL (140-400); Red Cell Distribution Width 12.8 % (11.5-14.5); Segmented Neutrophils % 75.3 %
[2017-01-03 16:34] LABS: Calcium 8.4 mg/dL (8.6-10.8); Potassium 2.7 mEq/L (3.5-4.5)
[2017-01-03 17:10] LABS: Beta-Hydroxybutyric Acid 0.22 mmol/L (0.02-0.27)
[2017-01-03] MEDS ORDERED: Vancomycin 1,750 MG in D5% in Water 500 ML IVPB ONE (17:35)
--- NOTE | 2017-01-03 20:10 | Internal Med History&Physical ---
<Gideon May - Last Filed: 01/03/17 20:36> Date of Encounter: 01/03/17 Time of Encounter: 20:07 Assessment and Plan (1) Acute encephalopathy Current visit: Yes Status: Acute Likely multifactorial as patient's blood sugars have been labile in setting of underlying infection secondary to cellulitis Given patient's decline in neurological status since presenting to ER, will order head CT without contrast Obtain urine tox screen and alcohol levels as well, along with UA/blood cultures Starting patient on Vanc/zosyn (renal dose); Bartonella titers were collected NPO for now and gentle hydration at 125 ml/hr LR Workup metabolic derangements with TSH, B12, Folate levels (2) Cellulitis Current visit: Yes Status: Acute Likely secondary to cat scratches; he does not meet sepsis criteria Bartonella titers and blood cultures collected, await results Start empiric antibiotics with renally dosed Zosyn and Vancomycin per pharmacy Qualifiers: Site of cellulitis: extremity Site of cellulitis of extremity: lower extremity Laterality: right Qualified Code(s): L03.115 - Cellulitis of right lower limb (3) Hypokalemia Current visit: No Status: Acute Potassium of 2.7 upon admission He did receive 40 mEq and will be on LR maintenance fluids Recheck CMP in morning as well as Mg and Phos levels (4) Insulin dependent diabetes mellitus Current visit: Yes Status: Chronic Holding home insulin regimen and start on low dose SSI q6hr while NPO A1c checked last month was 6.6% (5) CKD (chronic kidney disease) stage 3, GFR 30-59 ml/min Current visit: Yes Status: Chronic Cr of 1.51 upon admission near his baseline Will hydrate as above and continue to avoid nephrotoxic agents Closely monitor electrolytes and trend kidney function and I/O's (6) Hypertension Current visit: No Status: Chronic Vitals stable upon admission Will continue home anti-hypertensives Qualifiers: Hypertension type: essential hypertension Qualified Code(s): I10 - Essential (primary) hypertension (7) DVT prophylaxis Current visit: No Status: Acute Heparin 5000 units BID Internal Medicine - H&P: HPI Chief complaint: AMS Admitted From: Home Plans for Post Hospital Care: Home History of present illness: Mr. Santacruz is a 56 year old male who was brought by EMS for altered mental status. Although patient is currently alert and oriented 3, he is significantly lethargic and unable to provide a meaningful history and does not answer questions fully. Per emergency room staff, patient was more alert when he first presented. Patient's father was contacted and it was revealed that he was one that called EMS initially. According to documentation, patient awoke earlier this morning with sugars over 500 and took his usual 100 units of insulin in the morning. However he forgot to eat and fell asleep and his home glucose was in the 20s. According to EMS notes, when they arrived patient's home was extremely filthy and there are over 30 the house. Patient does have multiple scratch john in all extremities, stating that is from his cats. His only complaint at this time is back pain which appears to be chronic. Of note, patient has had uncontrolled diabetes and was admitted one month ago for hypoglycemia and had received extensive diabetic education. Past Med Surg Social Fam HX - Past Medical History Medical history: CHF, diabetes, hyperlipidemia, hypertension Psychiatric history: depression - Past Surgical History Surgical History: orthopedic, other, other - Social History Smoking Status: Never smoker Smokeless Tobacco Status: No Alcohol use: none Drug use: opiates - Family History Father Family Member Ethnicity: Non- Living Status: Still Living Hx Family Cardiac Disorders: Yes (pacer) Hx Family Endocrine Disorder: Yes (diabetis) Internal Medicine - H&P: Meds Gabapentin [Neurontin] 800 mg PO TID 12/20/15 [History] Insulin ASPART [Novolog] 0 unit SQ ACHS 12/20/15 [History] Metoprolol [Lopressor] 100 mg PO BID 12/20/15 [History] Magnesium Oxide [Mag-Ox] 400 mg PO BID 30 Days 12/23/15 [Rx] Aspirin Enteric Coated [Aspirin EC] 81 mg PO DAILY 01/21/16 [History] Ferrous Sulfate 325 mg PO BIDWM 30 Days 01/30/16 [Rx] Folic Acid 1 mg PO DAILY 30 Days 01/30/16 [Rx] Omeprazole [PriLOSEC] 40 mg PO DAILY 04/12/16 [History] cloNIDine HCl [CloNIDine HCl] 0.1 mg PO TID 04/12/16 [History] Citalopram Hydrobromide [Citalopram HBr] 40 mg PO DAILY 30 Days 04/20/16 [Rx] Multivitamin [Multi-Day Vitamins] 1 each PO DAILY 05/07/16 [History] Ascorbate Calcium [Vitamin C] 500 mg PO DAILY 10/25/16 [History] Potassium Chloride [K-Tab ER] 20 meq PO DAILY 10/25/16 [History] amLODIPine [Norvasc] 5 mg PO DAILY #30 tablet 12/10/16 [Rx] Atorvastatin Calcium [Lipitor] 20 mg PO HS 01/03/17 [History] Cyclobenzaprine [Flexeril] 10 mg PO HS 01/03/17 [History] Insulin DETEMIR [Levemir Flextouch] 100 unit SQ BID 01/03/17 [History] Morphine Immed Rel [Morphine Sulfate] 15 mg PO TID 01/03/17 [History] OxyCODONE/APAP 10/325 [Percocet 10/325 MG] 1 each PO Q6HR PRN 01/03/17 [History] Allergies No Known Allergies Allergy (Verified 12/21/16 23:35) ROS unobtainable: due to mental status All Systems PM: A 10-system review of systems was performed and is negative for pertinent findings except as documented above in the HPI. - Constitutional Vitals: Temp Pulse Resp BP Pulse Ox 99.2 F 83 16 126/82 99 01/03/17 15:42 01/03/17 18:41 01/03/17 19:41 01/03/17 19:41 01/03/17 18:41 General appearance: Present: cooperative, A&O X 3, obese. Absent: answers questions appropriately - Head Head exam: Present: atraumatic, normocephalic - Eye Eye exam: Present: conjuntiva pink, sclera anicteric - Neck Neck exam general surgery: Present: supple, trachea midline. Absent: lymphadenopathy - Respiratory Respiratory exam: Present: CTAB. Absent: accessory muscle use, rales, rhonchi, wheezes - Cardiovascular Cardiovascular exam: Present: RRR, +S1, +S2. Absent: diastolic murmur, gallop, rubs, systolic murmur - GI/Abdominal GI/Abdominal exam: Present: normal bowel sounds, soft, no peritoneal signs. Absent: distended, tenderness - Extremities Exam Extremities exam: Present: pedal edema, warm, radial pulses palpable and symetrical. Absent: calf tenderness, cyanotic - Neurological Exam Neurological exam: Present: altered, oriented X3, no focal deficits. Absent: facial droop, speech deficit - Skin Skin exam: Present: dry, intact Internal Med - H&P Results - Labs CBC & Chem 7: 01/03/17 16:00 01/03/17 16:00 <Kolby Bonilla - Last Filed: 01/04/17 00:26> Date of Encounter: 01/04/17 Internal Medicine - H&P: HPI History of present illness: Mr. Santacruz is a 56 year old male All Systems PM: A 10-system review of systems was performed and is negative for pertinent findings except as documented above in the HPI. - Constitutional Vitals: Temp Pulse Resp BP Pulse Ox 97.5 F L 110 21 153/104 95 01/04/17 00:16 01/04/17 00:16 01/04/17 00:16 01/04/17 00:16 01/04/17 00:16 Internal Med - H&P Results - Labs CBC & Chem 7: 01/03/17 16:00 01/03/17 16:00 - Impressions ITS Impressions Head CT 01/03/17 20:23 IMPRESSION: Focal low density adjacent to the frontal horn of the right lateral ventricle. This is likely due to a small prior infarct. No acute abnormality otherwise D/ / Alan Griffin / Alan Griffin Interpreting Provider: Alan Griffin - Attending Attestation I have seen and examined the patient. I discussed about the patient with Dr. May. I have reviewed the orders and the note. Patient is a 56-year-old male with a past history of CHF, diabetes, hyperlipidemia and hypertension and chronic kidney disease. He presents to the ED for altered mental status. On examination patient is currently awake and alert and oriented. He is not in any distress. He is able to provide history. Patient states he took his insulin this morning for blood glucose level of greater than 500. As per records patient almost 100 units of insulin this morning. He states he did not eat all day and then seems to have passed out. According to the EMS notes patient's house is very filthy and patient apparently has more than 30. Patient does have multiple scratch john in his extremities, and he states these are from his cats. Patient complains of back pain which is chronic. He is demanding his pain medication at this time. No other complaints. Patient is being admitted for acute encephalopathy, hyperglycemia and probable cellulitis of left lower extremity. Patient will be on IV antibiotics empirically. Patient has been explained about his condition and plan of care. He understood and agreed. No unanswered questions. CODE STATUS full code
[2017-01-03] MEDS ORDERED: Ondansetron 4 MG/2 ML VIAL IVP PRN (20:24)
[2017-01-03] MEDS ORDERED: Dextrose Gel 15 GM PO PRN ×2 (20:24)
[2017-01-03] MEDS ORDERED: *HR* Dextrose 50 % in Water (Syg) 50 ML SYRINGE IVP PRN (20:24)
[2017-01-03] MEDS ORDERED: D5% in Water 1,000 ML IVC PRN (20:24)
[2017-01-03] MEDS ORDERED: Acetaminophen 325 MG TABLET PO PRN (20:24)
[2017-01-03] MEDS ORDERED: Naloxone 0.4 MG/ML INJ IVP PRN (20:24)
[2017-01-03] MEDS ORDERED: Ringers Solution, Lactated 1,000 ML IVC SCH ×2 (20:30→20:38)
[2017-01-03] MEDS ORDERED: Vancomycin 1,750 MG in D5% in Water 250 ML IVPB SCH (21:00)
[2017-01-03] MEDS: cloNIDine HCl 0.1 MG TABLET PO SCH (22:54)
[2017-01-03] MEDS: Gabapentin 400 MG CAPSULE PO SCH (22:54)
[2017-01-03] MEDS: Metoprolol 100 MG TABLET PO SCH (22:54)
[2017-01-03] MEDS: Insulin LISPRO 300 UNITS/3 ML VIAL SQ SCH (23:06)
[2017-01-03] MEDS: *HR* Morphine 2 MG/ML SYRINGE IVP PRN (23:32)
[2017-01-04] MEDS: *HR* OxyCODONE/APAP 10/325 TABLET PO PRN ×4 (00:38→20:43)
[2017-01-04] MEDS: Piperacillin/Tazobactam 3.375 GM in D5% in Water (Mini-Bag+) 100 ML IVPB SCH ×2 (00:41→08:52)
[2017-01-04] MEDS: *HR* Heparin 5,000 UNIT/ML VIAL SQ SCH ×2 (06:02→18:45)
[2017-01-04] MEDS: Insulin LISPRO 300 UNITS/3 ML VIAL SQ SCH ×3 (06:03→17:42)
[2017-01-04 06:13] LABS: Alanine Aminotransferase 7 Units/L (0-55); Albumin 2.6 g/dL (3.5-5.0); Albumin/Globulin Ratio 0.9 (1.1-2.2); Alkaline Phosphatase 78 Units/L (38-126); Aspartate Amino Transferase 17 Units/L (5-34); BUN/Creatinine Ratio 20 (6-26); Bilirubin,Total 0.6 mg/dL (0.2-1.2); Blood Urea Nitrogen 22 mg/dL (8-26); Calcium 8.1 mg/dL (8.6-10.8); Carbon Dioxide 28 mEq/L (19-29); Chloride 102 mEq/L (98-109); Glucose 153 mg/dL (70-99); Osmolality,Calculated 290 (280-300); Phosphorous 2.9 mg/dL (2.3-4.7); Potassium 2.9 mEq/L (3.5-4.5); Sodium 137 mEq/L (136-145); Total Protein 5.6 g/dL (6.0-8.3); eGFR For African Americans > 60 (> 60); eGFR For Non-African Americans > 60 (> 60)
[2017-01-04 06:15] LABS: Basophils % 0.7 %; Eosinophils # 0.3 K/mcL (0.0-0.6); Eosinophils % 4.5 %; Hematocrit 27.5 % (37.5-50.1); Hemoglobin 9.5 g/dL (12.9-16.9); Immature Granulocytes % 0.4 % (0-4); Lymphocytes # 1.3 K/mcL (0.6-4.6); Lymphocytes % 22.6 %; Mean Corpuscular HGB Conc 34.5 g/dL (31.6-35.5); Mean Corpuscular Hemoglobin 32.6 pg (28.0-33.3); Mean Corpuscular Volume 94.5 fL (83.0-100.0); Mean Platelet Volume 10.8 fL (9.4-12.4); Monocytes # 0.6 K/mcL (0.0-1.3); Neutrophils # 3.5 K/mcL (1.6-8.9); Platelet Count 151 K/mcL (140-400); Red Blood Count 2.91 M/mcL (4.19-5.50); Red Cell Distribution Width 12.9 % (11.5-14.5); Segmented Neutrophils % 61.8 %
[2017-01-04 06:37] LABS: Thyroid Stimulating Hormone 0.394 mcIU/mL (0.350-4.840)
[2017-01-04 06:45] LABS: Folate 10.8 ng/mL (7.0-31.4)
[2017-01-04] MEDS: amLODIPine 5 MG TABLET PO SCH ×2 (08:35→11:14)
[2017-01-04] MEDS: Gabapentin 400 MG CAPSULE PO SCH ×3 (08:35→20:42)
[2017-01-04] MEDS: Folic Acid 1 MG TABLET PO SCH (08:35)
[2017-01-04] MEDS: Aspirin Enteric Coated 81 MG Tablet PO SCH (08:35)
[2017-01-04] MEDS: cloNIDine HCl 0.1 MG TABLET PO SCH ×3 (08:35→20:41)
[2017-01-04] MEDS: Metoprolol 100 MG TABLET PO SCH ×2 (08:36→20:43)
[2017-01-04] MEDS: Potassium Chloride 40 MEQ, Lidocaine 1% 2 ML in D5% in Water 500 ML IVPB SCH ×2 (08:58→13:08)
[2017-01-04] MEDS ORDERED: amLODIPine 5 MG TABLET PO SCH (09:00)
[2017-01-04] MEDS ORDERED: Pantoprazole 40 MG VIAL IVP SCH (09:00)
[2017-01-04] MEDS: Magnesium Sulfate 1 GM in D5% in Water 100 ML IVPB SCH ×3 (09:14→17:30)
[2017-01-04] MEDS: *HR* Morphine 2 MG/ML SYRINGE IVP PRN (09:22)
[2017-01-04] MEDS ORDERED: Furosemide 40 MG/4 ML VIAL IVP ONE (10:51)
--- NOTE | 2017-01-04 10:54 | Internal Med Progress Note ---
Date of Encounter: 01/04/17 Time of Encounter: 10:52 - Assessment and plan (1) Acute encephalopathy Current Visit: Yes Status: Acute Assessment and plan: Secondary to severe hypoglycemia Resolved at this time mental status back to baseline (2) Diabetes mellitus with neuropathy Current Visit: No Status: Chronic Assessment and plan: Patient educated about dietary compliance with his insulin therapy will decrease his home dose of Levemir to 50 units BID from 100units BID given patient's HbA1C of 6.6, patient may be over medicating himself will closely monitor FS and BG sliding scale insulin algorithm as needed ADA diet Qualifiers: Diabetes mellitus type: type 2 Diabetes mellitus 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 Both Lower extremities do no exhibit any clinical signs of cellulitis and has no leukocytosis or any clinical signs of infectious etiology Will discontinue all abx at this time and closely monitor Qualifiers: Site of cellulitis: extremity Site of cellulitis of extremity: lower extremity Laterality: right Qualified Code(s): L03.115 - Cellulitis of right lower limb (4) CKD (chronic kidney disease) Current Visit: No Status: Acute Assessment and plan: renal function at baseline will continue to monitor Qualifiers: Chronic kidney disease stage: unspecified stage Qualified Code(s): N18.9 - Chronic kidney disease, unspecified (5) Congestive heart failure Current Visit: No Status: Chronic Assessment and plan: Pt reports of not being on any lasix given significant lower extremity edema will give One time dose of Lasix 40mg IV will closely monitor continue home medications Qualifiers: Congestive heart failure type: diastolic Congestive heart failure chronicity: chronic Qualified Code(s): I50.32 - Chronic diastolic (congestive ) heart failure (6) Electrolyte abnormality Current Visit: No Status: Acute Assessment and plan: Hypokalemia and hypomagnesemia K and Mg supplemented will closely monitor electrolytes and replace as needed (7) Hypertension Current Visit: No Status: Acute Assessment and plan: noted to be severely hypertensive this morning which improved after receiving his home antihypertensives added Hydralazine 10mg IV q6h prn SBP>150 will closely monitor BP Qualifiers: Hypertension type: essential hypertension Qualified Code(s): I10 - Essential (primary) hypertension (8) DVT prophylaxis Current Visit: No Status: Acute Assessment and plan: Heparin SQ (9) Morbid obesity Current Visit: Yes Status: Chronic - Subjective Interval history: Patient seen and examined at bedside. Resting in chair and reports of feeling significantly better compared to previous day. States he did not feel like eating yesterday after taking his home insulin dosage which led to his altered mental status. At this time he is back to baseline. AAO x 3. Reports of living with his father who cares for and has 30 cats. He has scratches diffusely on upper and lower extremities and has been living with these cats for two years. His lower extremities have significant edema and has history of CHF. He reports of not being on Lasix at home. Patient is provided with diabetic education and insulin dosing. He was also evaluated by physical therapy and ECF was recommended. stock house worker is consulted for ECF placement. - Constitutional Vitals: Temp Pulse Resp BP Pulse Ox 97.5 F L 70 20 143/104 100 01/04/17 08:00 01/04/17 08:00 01/04/17 08:00 01/04/17 08:00 01/04/17 08:00 General appearance: Present: cooperative, A&O X 3, morbidly obese, no acute distress - Head Head exam: Present: atraumatic, normocephalic - Eye Eye exam: Present: conjuntiva pink, sclera anicteric - Respiratory Respiratory exam: Present: CTAB. Absent: respiratory distress, wheezes - Cardiovascular Cardiovascular exam: Present: RRR, +S1, +S2 - GI/Abdominal GI/Abdominal exam: Present: normal bowel sounds, soft, no peritoneal signs. Absent: distended, tenderness - Extremities Exam Extremities exam: Present: pedal edema (chronic venous stasis in bilateral lower extremities, diffuse chronic scratches on b/l LE, s/p great toe resection on bilateral feet ), warm, radial pulses palpable and symetrical. Absent: calf tenderness - Neurological Exam Neurological exam: Present: alert, oriented X3 - Psychiatric Psychiatric exam: Present: normal affect, normal mood Internal Medicine: Result - Labs CBC & Chem 7: 01/04/17 05:24 01/04/17 05:24 Labs: Short CBC 01/04/17 Range/Units 05:24 WBC 5.6 (4.3-11.1) K/mcL Hgb 9.5 L (12.9-16.9) g/dL Hct 27.5 L (37.5-50.1) % Plt Count 151 (140-400) K/mcL Neutrophils # 3.5 (1.6-8.9) K/mcL BMP 01/04/17 05:24 Sodium 137 Potassium 2.9 L Chloride 102 Carbon Dioxide 28 BUN 22 Creatinine 1.09 Glucose 153 H Calcium 8.1 L Liver Function 01/04/17 Range/Units 05:24 Total Bilirubin 0.6 (0.2-1.2) mg/dL AST 17 (5-34) Units/L ALT 7 (0-55) Units/L Alkaline Phosphatase 78 (38-126) Units/L Albumin 2.6 L (3.5-5.0) g/dL Consult Discharge Plan - Plan Referrals: NO,PCP [Primary Care Provider] -
--- NOTE | 2017-01-04 12:26 | Electrocardiograph Report ---
[place] [id number] Test Date: 2017-01-03 Pat Name: Jeanmarie Santacruz Department: 104 Room: 2NE27 Gender: M Head Of Mobile: AM : 1960 Requested By: Antoine Pickering Order Number: [id number] Reading MD: Dakota Leonard MD Measurements Intervals [place] Rate: 113 P: 28 SC: 164 QRS: -20 QRSD: 98 T: 63 QT: 335 QTc: 402 Interpretive Statements SINUS TACHYCARDIA Poor R wave progression Electronically Signed On 01-04-2017 12:25:04 EDT by Dakota Leonard MD
[2017-01-04] MEDS: Insulin DETEMIR 100 UNIT/ML X5UNITS SQ SCH ×2 (13:21→22:47)
[2017-01-04] MEDS ORDERED: Vancomycin 2,000 MG in D5% in Water 500 ML IVPB SCH (18:00)
[2017-01-04] MEDS ORDERED: Insulin LISPRO 300 UNITS/3 ML VIAL SQ SCH (21:00)
[2017-01-04] MEDS ORDERED: *HR* Morphine 2 MG/ML SYRINGE IVP ONE (23:52)
[2017-01-05] MEDS: *HR* OxyCODONE/APAP 10/325 TABLET PO PRN ×2 (05:04→09:24)
[2017-01-05 05:09] LABS: Basophils % 0.6 %; Eosinophils # 0.3 K/mcL (0.0-0.6); Eosinophils % 5.1 %; Hematocrit 28.2 % (37.5-50.1); Hemoglobin 9.5 g/dL (12.9-16.9); Immature Granulocytes % 0.4 % (0-4); Lymphocytes # 1.3 K/mcL (0.6-4.6); Lymphocytes % 25.6 %; Mean Corpuscular HGB Conc 33.7 g/dL (31.6-35.5); Mean Corpuscular Hemoglobin 31.7 pg (28.0-33.3); Mean Platelet Volume 10.3 fL (9.4-12.4); Monocytes # 0.6 K/mcL (0.0-1.3); Monocytes % 11.7 %; Neutrophils # 2.8 K/mcL (1.6-8.9); Platelet Count 138 K/mcL (140-400); Red Cell Distribution Width 12.7 % (11.5-14.5); Segmented Neutrophils % 56.6 %
[2017-01-05 05:26] LABS: BUN/Creatinine Ratio 20 (6-26); Blood Urea Nitrogen 19 mg/dL (8-26); Calcium 8.3 mg/dL (8.6-10.8); Carbon Dioxide 30 mEq/L (19-29); Chloride 104 mEq/L (98-109); Glucose 109 mg/dL (70-99); Magnesium 1.2 mg/dL (1.6-2.6); Osmolality,Calculated 289 (280-300); Phosphorous 2.7 mg/dL (2.3-4.7); Potassium 3.3 mEq/L (3.5-4.5); Sodium 138 mEq/L (136-145); eGFR For African Americans > 60 (> 60); eGFR For Non-African Americans > 60 (> 60)
[2017-01-05] MEDS: *HR* Heparin 5,000 UNIT/ML VIAL SQ SCH (06:03)
[2017-01-05] MEDS ORDERED: Magnesium Sulfate 2 GM in D5% in Water 100 ML IVPB ONE (07:38)
[2017-01-05] MEDS: Insulin LISPRO 300 UNITS/3 ML VIAL SQ SCH ×2 (09:12→13:30)
[2017-01-05] MEDS: Insulin DETEMIR 100 UNIT/ML X5UNITS SQ SCH (09:12)
[2017-01-05] MEDS: cloNIDine HCl 0.1 MG TABLET PO SCH (09:13)
[2017-01-05] MEDS: amLODIPine 5 MG TABLET PO SCH (09:13)
[2017-01-05] MEDS: Gabapentin 400 MG CAPSULE PO SCH (09:13)
[2017-01-05] MEDS: Metoprolol 100 MG TABLET PO SCH (09:13)
[2017-01-05] MEDS: Folic Acid 1 MG TABLET PO SCH (09:13)
[2017-01-05] MEDS: Aspirin Enteric Coated 81 MG Tablet PO SCH (09:13)
--- NOTE | 2017-01-05 13:59 | Discharge Summary ---
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 insulin use: unspecified mcfp insulin use status Qualified Code(s): E11.40 - Type 2 diabetes mellitus with diabetic neuropathy, unspecified (3) Cellulitis Priority: Secondary Status: Resolved Qualifiers: Site of cellulitis: extremity Site of cellulitis of extremity: lower extremity Laterality: right Qualified Code(s): L03.115 - Cellulitis of right lower limb (4) CKD (chronic kidney disease) Priority: Secondary Status: Chronic Qualifiers: Chronic kidney disease stage: unspecified stage Qualified Code(s): N18.9 - Chronic kidney disease, unspecified (5) Congestive heart failure Priority: Secondary Status: Chronic Qualifiers: Congestive heart failure type: diastolic Congestive heart failure chronicity: chronic Qualified Code(s): I50.32 - Chronic diastolic (congestive ) heart failure (6) Electrolyte abnormality Priority: Secondary Status: Acute (7) Hypertension Priority: Secondary Status: Chronic Qualifiers: Hypertension type: essential hypertension Qualified Code(s): I10 - Essential (primary) hypertension (8) DVT prophylaxis Priority: Secondary Status: Acute (9) Morbid obesity Priority: Secondary Status: Chronic - Discharge Medications Home Medications: Gabapentin [Neurontin] 800 mg PO TID 12/20/15 [History] Insulin ASPART [Novolog] 0 unit SQ ACHS 12/20/15 [History] Metoprolol [Lopressor] 100 mg PO BID 12/20/15 [History] Magnesium Oxide [Mag-Ox] 400 mg PO BID 30 Days 12/23/15 [Rx] Aspirin Enteric Coated [Aspirin EC] 81 mg PO DAILY 01/21/16 [History] Ferrous Sulfate 325 mg PO BIDWM 30 Days 01/30/16 [Rx] Folic Acid 1 mg PO DAILY 30 Days 01/30/16 [Rx] Omeprazole [PriLOSEC] 40 mg PO DAILY 04/12/16 [History] cloNIDine HCl [CloNIDine HCl] 0.1 mg PO TID 04/12/16 [History] Citalopram Hydrobromide [Citalopram HBr] 40 mg PO DAILY 30 Days 04/20/16 [Rx] Multivitamin [Multi-Day Vitamins] 1 each PO DAILY 05/07/16 [History] Ascorbate Calcium [Vitamin C] 500 mg PO DAILY 10/25/16 [History] Potassium Chloride [K-Tab ER] 20 meq PO DAILY 10/25/16 [History] amLODIPine [Norvasc] 5 mg PO DAILY #30 tablet 12/10/16 [Rx] Atorvastatin Calcium [Lipitor] 20 mg PO HS 01/03/17 [History] Cyclobenzaprine [Flexeril] 10 mg PO HS 01/03/17 [History] Morphine Immed Rel [Morphine Sulfate] 15 mg PO TID 01/03/17 [History] OxyCODONE/APAP 10/325 [Percocet 10/325 MG] 1 each PO Q6HR PRN 01/03/17 [History] Insulin DETEMIR [Levemir] 50 unit SQ BID 01/05/17 [Rx] Allergies/Adverse Reactions: Allergies No Known Allergies Allergy (Verified 12/21/16 23:35) Date of admission: 01/03/17 21:57 Primary care physician: PCP NO Consults: 01/05/17 12:17 Consult to Physical Therapy [CONS] Routine Comment: Evaluate, develop and implement POC Reason for Consult: evaluation for placement 01/05/17 12:18 Consult to Occupational Therapy [CONS] Routine Comment: Evaluate, develop and implement POC Reason for Consult: evaluation for placement Discharging clinician: Stephanie Dean Anticipated date of discharge: 01/05/17 - Patient Status Disposition: Home Health Service Condition: Fair Functional capacity at discharge: independent ambulation Overall status at discharge: patient is back to baseline - Discharge Instructions Follow Up With: NO,PCP [Primary Care Provider] - Additional Instructions: Please follow up with your primary care physician within one week after your discharge from the hospital. Your home dose of Levemir has been decreased to 50units twice a day. Please take this medication as prescribed. Please closely monitor your blood glucose at home and seek medical help if you are noted to have extremely low blood glucose. Please ask your primary care physician about initiation of lasix. resume all your other home medications as prescribed by your primary care physician. - Diet and Activity Activity: as per physical therapy Diet: diabetic diet Hospital course: Mr. Santacruz is a 56 year old male with PMH of HTN, HLD, DM, CHF, CKD, morbid obesity who was admitted for change in mental status secondary to severe hypoglycemia. Patient's home insulin dosing was decreased and his blood glucose levels were closely monitored. His blood glucose remained with acceptable range with reduction of his home insulin dosing. Patient was educated about his insulin use. Patient was evaluated by physical therapy and ECF was recommended, however during oncology social work's evaluation, patient admitted to be wanting to go to rehab because it gives him a break from his living condition (lives with 30 cats and takes care of his father), and he was witnessed to be ambulating well around the room by the oncology social work. Physical therapy evaluation was redone, at which time he admitted that his living conditions are poor with a malfunctioning kitchen and unclean place. Physical therapist said that the patient will benefit from home health services/social science analyst. Social work Macario Go was called who will evaluate the patient and arrange home health services prior to discharge. Patient will be discharged once home health services have been arranged. - Time Spent with Patient Total time spent providing and/or coordinating discharge services: Greater than 30 minutes - Constitutional Vitals: Temp Pulse Resp BP Pulse Ox 98.1 F 60 17 105/58 96 01/05/17 11:49 01/05/17 11:49 01/05/17 11:49 01/05/17 11:49 01/05/17 11:49 General appearance: Present: cooperative, A&O X 3, morbidly obese, no acute distress - Head Head exam: Present: atraumatic, normocephalic - Eye Eye exam: Present: conjuntiva pink, sclera anicteric - Respiratory Respiratory exam: Present: CTAB. Absent: accessory muscle use, rales, rhonchi, wheezes - Cardiovascular Cardiovascular exam: Present: RRR, +S1, +S2. Absent: diastolic murmur, gallop, rubs, systolic murmur - GI/Abdominal GI/Abdominal exam: Present: normal bowel sounds, soft, no peritoneal signs. Absent: distended, tenderness - Extremities Exam Extremities exam: Present: warm, radial pulses palpable and symetrical (chronic venous stasis in bilateral lower extremities. s/p both great toe amputations. Cat scratches on bilateral upper and lower extremities ) - Neurological Exam Neurological exam: Present: alert, oriented X3 - Psychiatric Psychiatric exam: Present: normal affect, normal mood
--- NOTE | 2017-01-05 14:03 | Physician Discharge Referral ---
Home Health/Hosp Referral Info Transfer to: Home Health Provider in Charge Post Discharge: PCP - Diagnosis (1) Acute encephalopathy Priority: Primary Status: Resolved (2) Diabetes mellitus with neuropathy Priority: Primary Status: Chronic (3) Cellulitis Priority: Secondary Status: Resolved (4) CKD (chronic kidney disease) Priority: Secondary Status: Chronic (5) Congestive heart failure Priority: Secondary Status: Chronic (6) Electrolyte abnormality Priority: Secondary Status: Acute (7) Hypertension Priority: Secondary Status: Chronic (8) DVT prophylaxis Priority: Secondary Status: Acute (9) Morbid obesity Status: Chronic - Respiratory Orders Smoking Cessation: Smoking cessation has been advised. For more information, call the [place] Tobacco Quit Line at 5-341-YJHF-NOW. - Services Needed Following services are medically necessary services: Nursing, Home Health Aide, Physical Therapy, Occupational Therapy, Med Social Work - Transfer Medications Home Medications: Gabapentin [Neurontin] 800 mg PO TID 12/20/15 [History] Insulin ASPART [Novolog] 0 unit SQ ACHS 12/20/15 [History] Metoprolol [Lopressor] 100 mg PO BID 12/20/15 [History] Magnesium Oxide [Mag-Ox] 400 mg PO BID 30 Days 12/23/15 [Rx] Aspirin Enteric Coated [Aspirin EC] 81 mg PO DAILY 01/21/16 [History] Ferrous Sulfate 325 mg PO BIDWM 30 Days 01/30/16 [Rx] Folic Acid 1 mg PO DAILY 30 Days 01/30/16 [Rx] Omeprazole [PriLOSEC] 40 mg PO DAILY 04/12/16 [History] cloNIDine HCl [CloNIDine HCl] 0.1 mg PO TID 04/12/16 [History] Citalopram Hydrobromide [Citalopram HBr] 40 mg PO DAILY 30 Days 04/20/16 [Rx] Multivitamin [Multi-Day Vitamins] 1 each PO DAILY 05/07/16 [History] Ascorbate Calcium [Vitamin C] 500 mg PO DAILY 10/25/16 [History] Potassium Chloride [K-Tab ER] 20 meq PO DAILY 10/25/16 [History] amLODIPine [Norvasc] 5 mg PO DAILY #30 tablet 12/10/16 [Rx] Atorvastatin Calcium [Lipitor] 20 mg PO HS 01/03/17 [History] Cyclobenzaprine [Flexeril] 10 mg PO HS 01/03/17 [History] Morphine Immed Rel [Morphine Sulfate] 15 mg PO TID 01/03/17 [History] OxyCODONE/APAP 10/325 [Percocet 10/325 MG] 1 each PO Q6HR PRN 01/03/17 [History] Insulin DETEMIR [Levemir] 50 unit SQ BID 01/05/17 [Rx] Allergies/Adverse Reactions: Allergies No Known Allergies Allergy (Verified 12/21/16 23:35) Certification: Further, I certify that my clinical findings support that this patient is homebound (i.e. absences from home require considerable and taxing effort and are for medical reasons or anabaptist services or infrequently or short duration when for other reasons) because: Homebound Reason: Patient requires assistance of a person or device to safely leave home Attestation: My signature below is to certify that this patient is under my care and that I, or nurse practitioner, or a physician's senior administrative assistant working with me, has a face-to -face encounter with this patient.
[2017-01-05 16:03] VITALS: BP 120/76
[2017-01-05] MEDS ORDERED: Aminoglycoside Consult 1 EACH MC ONE (17:04)
[2017-01-10 08:04] LABS: Bartonella Source NOT PROVIDED; Bartonella Species PCR NOT DETECTED
== END 2017-01-05 17:05 | disposition home health service (06) | DRG 637 ==
LOC: 2NENU 15:38 → EMEROO 15:38 → 2NENU 20:10
PROVIDERS: ADMIT Internal Medicine; ATTEND Internal Medicine